=== PATIENT | female | born 1970 | race Caucasian/White ===

== ENCOUNTER 2017-09-06 16:45 | Emergency (ER) | payer BC ==
[2017-09-06 16:56] VITALS: BP 135/97
--- NOTE | 2017-09-06 17:12 | EDM.PDOC ---
ED HPI GENERAL MEDICAL PROBLEM - General Chief Complaint: Upper Extremity Injury/Pain Stated Complaint: LEFT HAND MAYBE BROKEN Time Seen by Provider: 09/06/17 17:03 Source of Information: Reports: Patient History Limitations: Reports: No Limitations - History of Present Illness INITIAL COMMENTS - FREE TEXT/NARRATIVE: Patient's a 46-year-old female who presents to the ED complaining of left hand pain. Patient states while walking her 3 dogs she tripped and fell landing on the affected hand. This happened approximately 1 hour and a half ago. She has ecchymosis and swelling to the left hand, fifth finger, and thumb. No decreased range of motion of the wrist noted. No scaphoid tenderness. No pain to the forearm, elbow, upper arm, shoulder, clavicle. She did not hit her head nor injure her neck. She offers no additional complaints. Left Hand Pain Score (Numeric/FACES): 7 - Related Data Allergies Allergy/AdvReac Type Severity Reaction Status Date / Time No Known Allergies Allergy Verified 09/06/17 16:53 Past Medical History - Past Health History Medical/Surgical History: Denies Medical/Surgical History Cardiovascular History: Reports: Other (See Below) Other Cardiovascular History: failed stress stest Musculoskeletal History: Reports: Other (See Below) Other Musculoskeletal History: left heel spur removed - Past Surgical History GI Surgical History: Reports: Appendectomy, Cholecystectomy Female Surgical History: Reports: Tubal Ligation, Other (See Below) Musculoskeletal Surgical History: Reports: Other (See Below) Social & Family History - Tobacco Use Smoking Status *Q: Current Every Day Smoker Years of Tobacco use: 15 Packs/Tins Daily: 0.2 - Alcohol Use Days Per Week of Alcohol Use: 3 Number of Drinks Per Day: 2 Total Drinks Per Week: 6 - Recreational Drug Use Recreational Drug Use: No - Living Situation & Occupation Living situation: Reports: , with Spouse Occupation: Employed Review of Systems - Review of Systems Review Of Systems: ROS reveals no pertinent complaints other than HPI. ED EXAM, GENERAL - Physical Exam Exam: See Below Exam Limited By: No Limitations General Appearance: Alert, WD/WN, No Apparent Distress Ears: Hearing Grossly Normal Nose: Normal Inspection Throat/Mouth: Normal Voice, No Airway Compromise Head: Atraumatic, Normocephalic Neck: Normal Inspection, Supple, Non-Tender, Full Range of Motion Respiratory/Chest: No Respiratory Distress, Lungs Clear, Normal Breath Sounds, No Accessory Muscle Use Cardiovascular: Normal Peripheral Pulses, Regular Rate, Rhythm Peripheral Pulses: 4+: Radial (L) Extremities: Other (Left hand: Swelling and ecchymosis noted along the fifth metacarpal and MCP. Pain with palpation of the left thumb along the IP joint. No pain with palpation of the distal radius and ulna. No scaphoid tenderness. No decreased range of motion noted to the wrist. No pain with palpation of the forearm, elbow, upper arm, shoulder, clavicle.) Neurological: Alert, Oriented, CN II-XII Intact, Normal Cognition, No Motor/ Sensory Deficits Psychiatric: Normal Affect, Normal Mood Skin Exam: Warm, Dry ED TRAUMA EXTREMITY PROCEDURES - Splinting Left Splint Site: hand Pre-Procedure NV Status: Normal Post-Procedure NV Status: Normal Splint Material: Other (Victor Hugo wrap) Splint Design: Other (To the hand) Applied & Form Fitted By: Provider Provider Post-Splint Application NV Check: NV Status Normal, Good Position Complications: No Course - Vital Signs Last Recorded V/S: Last Vital Signs Temp 97.0 F 09/06/17 16:53 Pulse 74 09/06/17 16:53 Resp BP 135/97 H 09/06/17 16:53 Pulse Ox 98 09/06/17 16:53 - Orders/Labs/Meds Orders: Active Orders 24 hr Category Date Time Status Hand Comp Min 3V Lt [CR] Stat Exams 09/06/17 17:06 Taken - Re-Assessments/Exams Free Text/Narrative Re-Assessment/Exam: Ordered x-ray of the left hand. X-ray of the left hand reviewed with Dr. Raymundo. No acute bony abnormalities noted. Victor Hugo wrap applied. We'll discharge patient home with instructions as documented. Departure - Departure Time of Disposition: 17:47 Disposition: Home, Self-Care 01 Condition: Good Clinical Impression: Contusion of left hand, initial encounter - Discharge Information Instructions: Hand Contusion Referrals: PCP,None [Primary Care Provider] - Forms: ED Department Discharge Additional Instructions: Apply ice to the affected hand 4 times a day, 30 minutes in duration, do not apply ice directly on the skin. Take Tylenol and ibuprofen in alternating fashion. Refrain from any activities that cause worsening pain. If the pain does not significantly improve over the next 7-10 days please follow up with orthopedic surgeon for reevaluation. Return to the ED if you develop any new or worsening symptoms. - My Orders Last 24 Hours: My Active Orders 09/06/17 17:06 Hand Comp Min 3V Lt [CR] Stat - Assessment/Plan Last 24 Hours: My Active Orders 09/06/17 17:06 Hand Comp Min 3V Lt [CR] Stat
--- NOTE | 2017-09-07 06:46 | CR ---
Left hand: Three views of the left hand were obtained. Comparison: No previous x-ray. Mild degenerative change noted at the CMC joint of the thumb. No discrete fracture or other abnormality is seen. Impression: 1. Degenerative change as noted above. Nothing acute is identified. Diagnostic code #2
== END 2017-09-06 17:55 | disposition home or self-care (01) ==
LOC: JD.ED 16:45
DX: S60.222A Contusion of left hand, initial encounter (principal); F17.210 Nicotine dependence, cigarettes, uncomplicated; W01.0XXA Fall on same level from slipping, tripping and stumbling without subsequent striking against object, initial encounter; Y93.K1 Activity, walking an animal
CPT/HCPCS: 29125; 73130-26-LT; 73130-LT; 99282-25; 99283

== ENCOUNTER 2017-09-14 19:28 | Emergency (ER) | payer BC ==
[2017-09-14 19:41] VITALS: BP 144/86
[2017-09-14] MEDS ORDERED: Doxycycline 100 MG Cap PO ONE (20:09)
[2017-09-14] MEDS ORDERED: guaiFENesin 600 MG Tab.ER PO ONE (20:09)
[2017-09-14] MEDS ORDERED: Benzonatate 100 MG Cap PO ONE (20:09)
--- NOTE | 2017-09-14 20:15 | EDM.PDOC ---
ED HPI GENERAL MEDICAL PROBLEM - General Chief Complaint: Respiratory Problem Stated Complaint: EAR INFECTION AND CHEST DISCOMFORT Time Seen by Provider: 09/14/17 19:59 Source of Information: Reports: Patient History Limitations: Reports: No Limitations - History of Present Illness INITIAL COMMENTS - FREE TEXT/NARRATIVE: Patient developed sinus congestion, runny nose, cough, postnasal drip, and bilateral ear pain this past . Symptoms have progressively gotten worse since. Unable to sleep at night secondary to the cough. Cough has been productive with clear mucus. States she has a lot of sinus pressure bilaterally in notable anterior neck discomfort. She denies any sore throat. Developed bilateral ear pain today with questionable drainage from the left ear. 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 States she has mild chest discomfort with coughing. She denies sob, abdominal pain, body aches, fevers, and or any other complaints. Chest Pain Score (Numeric/FACES): 7 - Related Data Allergies Allergy/AdvReac Type Severity Reaction Status Date / Time No Known Allergies Allergy Verified 09/14/17 19:41 Home Meds: Home Meds Benzonatate [Tessalon Perle] 100 mg PO TID PRN #21 capsule 09/14/17 [Rx] Doxycycline [Vibramycin] 100 mg PO BID #20 cap 09/14/17 [Rx] Past Medical History - Past Health History Medical/Surgical History: Denies Medical/Surgical History Cardiovascular History: Reports: Other (See Below) Other Cardiovascular History: failed stress stest Musculoskeletal History: Reports: Other (See Below) Other Musculoskeletal History: left heel spur removed - Past Surgical History GI Surgical History: Reports: Appendectomy, Cholecystectomy Female Surgical History: Reports: Tubal Ligation, Other (See Below) Musculoskeletal Surgical History: Reports: Other (See Below) Social & Family History - Family History Family Medical History: Noncontributory - Tobacco Use Smoking Status *Q: Current Every Day Smoker Years of Tobacco use: 20 Packs/Tins Daily: 0.5 - Caffeine Use Caffeine Use: Reports: None - Alcohol Use Days Per Week of Alcohol Use: 3 Number of Drinks Per Day: 2 Total Drinks Per Week: 6 - Recreational Drug Use Recreational Drug Use: No - Living Situation & Occupation Living situation: Reports: , with Spouse Occupation: Employed ED ROS GENERAL - Review of Systems Review Of Systems: See Below Constitutional: Denies: Fever, Decreased Appetite HEENT: Reports: Ear Pain (bilateral), Rhinitis, Sinus Problem. Denies: Throat Pain Respiratory: Reports: Pleuritic Chest Pain (with coughing), Cough, Sputum. Denies: Shortness of Breath, Wheezing, Hemoptysis Cardiovascular: Reports: No Symptoms GI/Abdominal: Reports: No Symptoms Musculoskeletal: Reports: No Symptoms Skin: Reports: No Symptoms Neurological: Reports: No Symptoms ED EXAM, GENERAL - Physical Exam Exam: See Below Exam Limited By: No Limitations General Appearance: Alert, WD/WN, No Apparent Distress Eye Exam: Bilateral Eye: EOMI, PERRL Ears: Normal External Exam, Normal Canal, Hearing Grossly Normal, Normal TMs Nose: Normal Inspection, Nasal Swelling, Nasal Drainage, Clear Rhinorrhea. No: Nasal Tenderness Throat/Mouth: Normal Inspection, Normal Oropharynx, Normal Voice, No Airway Compromise Head: Atraumatic, Normocephalic Neck: Normal Inspection, Supple, Full Range of Motion, Lymphadenopathy (L). No : Lymphadenopathy (R) Respiratory/Chest: No Respiratory Distress, Lungs Clear, Normal Breath Sounds, No Accessory Muscle Use, Chest Non-Tender Cardiovascular: Normal Peripheral Pulses, Regular Rate, Rhythm Peripheral Pulses: 4+: Radial (R) Neurological: Alert, Oriented, CN II-XII Intact, Normal Cognition, No Motor/ Sensory Deficits Psychiatric: Normal Affect, Normal Mood Skin Exam: Warm, Dry, Intact, Normal Color, No Rash Course - Vital Signs Last Recorded V/S: Last Vital Signs Temp 96.9 F 09/14/17 19:38 Pulse 107 H 09/14/17 19:38 Resp 16 09/14/17 19:38 BP 144/86 H 09/14/17 19:38 Pulse Ox 95 09/14/17 19:38 - Orders/Labs/Meds Meds: Medications Discontinued Medications Generic Name Dose Route Start Last Admin Trade Name Freq PRN Reason Stop Dose Admin Benzonatate 200 mg 09/14/17 20:09 09/14/17 20:20 Tessalon Perles PO 09/14/17 20:10 200 mg ONETIME ONE Administration Doxycycline Hyclate 100 mg 09/14/17 20:09 09/14/17 20:20 Vibramycin PO 09/14/17 20:10 100 mg ONETIME ONE Administration Guaifenesin 1,200 mg 09/14/17 20:09 09/14/17 20:20 Mucinex PO 09/14/17 20:10 1,200 mg ONETIME ONE Administration - Re-Assessments/Exams Free Text/Narrative Re-Assessment/Exam: No testing required patient has sinusitis with postnasal drip with cough. Ordered doxycycline 100 mg by mouth, Tessalon pearls 20 mg by mouth, and also Mucinex 1200 mg by mouth. We'll discharge patient home with instructions as documented. The patient remained hemodynamically stable while under my care in the E.D. I reviewed the patients care today and discussed the concerning symptoms for which to return to the E.D. with the patient/family. The patient/family verbalized understanding. All questions were answered. Departure - Departure Time of Disposition: 20:12 Disposition: Home, Self-Care 01 Condition: Good Clinical Impression: Productive cough Sinusitis Qualifiers: Sinusitis location: frontal Chronicity: acute Recurrence: non-recurrent Qualified Code(s): J01.10 - Acute frontal sinusitis, unspecified - Discharge Information Prescriptions: Benzonatate [Tessalon Perle] 100 mg PO TID PRN #21 capsule PRN Reason: Cough Doxycycline [Vibramycin] 100 mg PO BID #20 cap Instructions: Steps to Quit Smoking, [id number], Cough, Adult, [id number], Sinusitis, Adult Referrals: PCP,None [Primary Care Provider] - Forms: ED Department Discharge Additional Instructions: Take Tessalon Perles 100 mg 3 times a day for cough as needed. Take the full course of doxycycline 100 mg twice a day for 10 days. Take Mucinex 600 mg twice a day for the next 10 days. Push the fluids. Ensure adequate rest. Take Tylenol and ibuprofen and alternate fashion for discomfort. Follow-up with PCP at the conclusion of therapy if symptoms have not drastically improved. Return to the ED if you develop any new or worsening symptoms.
== END 2017-09-14 20:25 | disposition home or self-care (01) ==
LOC: JD.ED 19:28
DX: J01.10 Acute frontal sinusitis, unspecified (principal); F17.210 Nicotine dependence, cigarettes, uncomplicated
CPT/HCPCS: 99283; A9270

== ENCOUNTER 2017-10-24 17:10 | Emergency (ER) | payer BC ==
[2017-10-24 17:29] VITALS: BP 120/80
--- NOTE | 2017-10-24 19:16 | EDM.PDOC ---
ED HPI GENERAL MEDICAL PROBLEM - General Chief Complaint: Respiratory Problem Stated Complaint: SORE THROAT X 1 MONTH Time Seen by Provider: 10/24/17 19:05 Source of Information: Reports: Patient History Limitations: Reports: No Limitations - History of Present Illness INITIAL COMMENTS - FREE TEXT/NARRATIVE: Patient is a 46 y/o female who presents to the E.D. complaining of a sore throat , post nasal gtt, sinus congestion for the past month. States she was evaluated one month ago and was placed on a antibiotic no significant results. States she has history of allergies but refuses to take any OTC antihistamines and or intranasal steroids with concerns medications will not continue to work. She has been evaluated by ENT and a Allergists. She continues to refuse following recommendations. She is requesting an antibiotic. She notes increased fatigue as of recent. States as of recent exposed to increased dust worsening symptoms. Appetite has been low. She denies any sick exposures. She denies cough, cp, sob, fever, abdominal pain, dysuria, rash, or any additional complaints. Throat Pain Score (Numeric/FACES): 7 - Related Data Allergies Allergy/AdvReac Type Severity Reaction Status Date / Time No Known Allergies Allergy Verified 09/14/17 19:41 Home Meds: Home Meds . [No Known Home Meds] 10/24/17 [History] Past Medical History - Past Health History Medical/Surgical History: Denies Medical/Surgical History Cardiovascular History: Reports: Other (See Below) Other Cardiovascular History: failed stress stest Musculoskeletal History: Reports: Other (See Below) Other Musculoskeletal History: left heel spur removed - Past Surgical History GI Surgical History: Reports: Appendectomy, Cholecystectomy Female Surgical History: Reports: Tubal Ligation, Other (See Below) Musculoskeletal Surgical History: Reports: Other (See Below) Social & Family History - Family History Family Medical History: Noncontributory - Tobacco Use Smoking Status *Q: Current Every Day Smoker Years of Tobacco use: 15 Packs/Tins Daily: 0.4 - Caffeine Use Caffeine Use: Reports: None - Recreational Drug Use Recreational Drug Use: No - Living Situation & Occupation Living situation: Reports: , with Spouse Occupation: Employed ED ROS GENERAL - Review of Systems Review Of Systems: ROS reveals no pertinent complaints other than HPI. ED EXAM, GENERAL - Physical Exam Exam: See Below Exam Limited By: No Limitations General Appearance: Alert, WD/WN, No Apparent Distress Eye Exam: Bilateral Eye: Normal Inspection, PERRL Ears: Normal External Exam, Normal Canal, Hearing Grossly Normal, Normal TMs Nose: Normal Inspection, Nasal Swelling, Nasal Drainage, Clear Rhinorrhea. No: Nasal Tenderness Throat/Mouth: Normal Inspection, Normal Oropharynx, Normal Voice, No Airway Compromise, Other (post nasal drip present. faint redness to the throat. no exudates. uvula deviation. ) Neck: Normal Inspection, Supple, Non-Tender, Full Range of Motion. No: Lymphadenopathy (L), Lymphadenopathy (R) Respiratory/Chest: No Respiratory Distress, Lungs Clear, Normal Breath Sounds, No Accessory Muscle Use, Chest Non-Tender Cardiovascular: Normal Peripheral Pulses, Regular Rate, Rhythm, No Rub Peripheral Pulses: 4+: Radial (L), Radial (R) Neurological: Alert, Oriented, CN II-XII Intact, Normal Cognition, No Motor/ Sensory Deficits Psychiatric: Normal Affect, Normal Mood Skin Exam: Warm, Dry, Intact, Normal Color, No Rash Course - Vital Signs Last Recorded V/S: Last Vital Signs Temp 96.3 F 10/24/17 17:27 Pulse 100 10/24/17 17:27 Resp 20 10/24/17 17:27 BP 120/80 10/24/17 17:27 Pulse Ox 94 L 10/24/17 17:27 - Re-Assessments/Exams Free Text/Narrative Re-Assessment/Exam: Patient has seasonal allergies. Patient refuses to take OTC medications to improve symptoms. I have provided detailed instructions for OTC meds to be used. She had no additional questions or concerns. Departure - Departure Time of Disposition: 19:13 Disposition: Home, Self-Care 01 Condition: Good Clinical Impression: Postnasal drip Pharyngitis Qualifiers: Pharyngitis/tonsillitis etiology: unspecified etiology Qualified Code(s): J02.9 - Acute pharyngitis, unspecified Allergic rhinitis Qualifiers: Allergic rhinitis trigger: unspecified Allergic rhinitis seasonality: seasonal Qualified Code(s): J30.2 - Other seasonal allergic rhinitis - Discharge Information Instructions: Pharyngitis, [id number], Allergic Rhinitis, Adult Referrals: PCP,None [Primary Care Provider] - Forms: ED Department Discharge Additional Instructions: As discussed is most likely related to allergies with chronic sinus congestion with postnasal drip contributing to sore throat. Symptoms worsened yesterday after being exposed to dust thus suggesting allergy related as well. Start taking Flonase 1 spray to each nare twice daily, Claritin 10 mg every day, nasal saline spray to each Nare as needed throughout the course today to decrease any nasal congestion. Establish care with a PCP here locally for further evaluation. See a ENT specialist in the next 1-2 weeks for reevaluation to determine if tonsillectomy is required. Suggest following up with a electronics teacher to diagnose what allergies you may have and for possible treatment.
== END 2017-10-24 19:20 | disposition home or self-care (01) ==
LOC: JD.ED 17:10
DX: J02.9 Acute pharyngitis, unspecified (principal); J30.2 Other seasonal allergic rhinitis; R09.82 Postnasal drip; F17.210 Nicotine dependence, cigarettes, uncomplicated
CPT/HCPCS: 87081; 87430; 99282; 99283

== ENCOUNTER 2019-01-26 14:13 | Emergency (ER) | payer BC ==
[2019-01-26 14:29] VITALS: BP 151/113
--- NOTE | 2019-01-26 15:02 | CT ---
Head CT Technique: Multiple axial sections through the brain were obtained. Intravenous contrast was not utilized. Comparison: Prior head CT study of 12/10/18. Findings: Ventricles along with basal cisterns and sulci over the convexities appear within normal limits for the patient's age. No abnormal parenchymal densities are seen. No evidence of intracranial hemorrhage. No midline shift or mass effect is appreciated. Bone window settings were reviewed which show the visualized paranasal sinuses to appear clear. Slight deformity is noted within the anterior right maxillary sinus possibly due to old injury. Mastoid sinuses are clear. No acute calvarial abnormality is seen. Impression: 1. Possible old fracture within the anterior right maxillary sinus. 2. Nothing acute is appreciated on noncontrast head CT exam. No change from previous study is seen. Diagnostic code #2
[2019-01-26] MEDS: Sodium Chloride 0.9% 10 ML Syringe FLUSH PRN ×2 (15:28→17:28)
[2019-01-26] MEDS ORDERED: Iopamidol 755 Mg/ML 100 ML Bottle IVPUSH ONE (17:05)
[2019-01-26] MEDS ORDERED: Sodium Chloride 0.9% 100 ML IV SCH (17:15)
--- NOTE | 2019-01-26 17:28 | EDM.PDOCBH ---
ED HPI GENERAL MEDICAL PROBLEM - General Chief Complaint: Neurological Problem Stated Complaint: STROKE X 3 WEEKS AGO NOW HAVING HEADACHE Time Seen by Provider: 01/26/19 14:27 Source of Information: Reports: Patient History Limitations: Reports: No Limitations - History of Present Illness INITIAL COMMENTS - FREE TEXT/NARRATIVE: The patient presents with right arm and leg pain with weakness and numbness. She also has a headache. She had a headache for 3 days. Her last times known well was 01/24/19 at 8am. She has slowly progressive symptoms and now she has moderate weakness to her right arm and leg. She had a stroke back in December. She has no fever, chills, cough, congestion, runny nose, chest pain, shortness of breath, abdominal pain, nausea or vomiting. Onset: Gradual Duration: Day(s): (2) Location: Reports: Head, Upper Extremity, Right, Lower Extremity, Right Quality: Reports: Ache Severity: Moderate Improves with: Reports: None Worsens with: Reports: None Associated Symptoms: Reports: Headaches. Denies: Chest Pain, Cough, Fever/ Chills, Nausea/Vomiting, Shortness of Breath Headache Pain Score (Numeric/FACES): 10 - Related Data Allergies Allergy/AdvReac Type Severity Reaction Status Date / Time No Known Allergies Allergy Verified 01/26/19 14:29 Home Meds: Home Meds . 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: Musculoskeletal History: Reports: Other (See Below) Other Musculoskeletal History: left heel spur removed Neurological History: Reports: CVA Psychiatric History: Reports: Addiction, Anxiety - Past Surgical History GI Surgical History: Reports: Appendectomy, Cholecystectomy Female Surgical History: Reports: Tubal Ligation, Other (See Below) Social & Family History - Family History Family Medical History: Noncontributory - Tobacco Use Smoking Status *Q: Current Every Day Smoker Years of Tobacco use: 30 Packs/Tins Daily: 0.5 - Caffeine Use Caffeine Use: Reports: None - Alcohol Use Days Per Week of Alcohol Use: 7 Number of Drinks Per Day: 2 Total Drinks Per Week: 14 - Recreational Drug Use Recreational Drug Use: No - Living Situation & Occupation Living situation: Reports: , with Spouse Occupation: Employed ED ROS GENERAL - Review of Systems Review Of Systems: See Below Constitutional: Reports: No Symptoms HEENT: Reports: No Symptoms Respiratory: Reports: No Symptoms Cardiovascular: Reports: No Symptoms Endocrine: Reports: No Symptoms GI/Abdominal: Reports: No Symptoms : Reports: No Symptoms Neurological: Reports: Headache, Numbness, Weakness ED EXAM, BEHAVIORAL HEALTH - Physical Exam Exam: See Below Exam Limited By: No Limitations General Appearance: Alert, No Apparent Distress Ears: Normal External Exam Nose: Normal Inspection Head: Atraumatic, Normocephalic Neck: Normal Inspection Respiratory/Chest: No Respiratory Distress, Lungs Clear, Normal Breath Sounds Cardiovascular: Regular Rate, Rhythm, No Edema, No Murmur GI/Abdominal: Soft, Non-Tender, No Organomegaly, No Mass Back Exam: Normal Inspection Extremities: Normal Inspection Neurological: Other (Moderate weakness to the right leg and arm) EKG INTERPRETATION EKG Date: 01/26/19 Time: 15:38 Rhythm: NSR Rate (Beats/Min): 92 [place]: Normal P-Wave: Present QRS: Normal ST-T: Normal QT: Normal EKG Interpretation Comments: Q waves in the anterior leads COURSE, BEHAVIORAL HEALTH COMP - Course Vital Signs: Last Vital Signs Temp 98.7 F 01/26/19 14:25 Pulse 108 H 01/26/19 14:25 Resp 23 H 01/26/19 14:25 BP 151/113 H 01/26/19 14:25 Pulse Ox 91 L 01/26/19 14:25 Orders, Labs, Meds: Active Orders 24 hr Category Date Time Status Cardiac Monitoring [RC] . DIRECTED Care 01/26/19 14:30 Active EKG Documentation Completion [RC] STAT Care 01/26/19 14:30 Active Peripheral IV Care [RC] . DIRECTED Care 01/26/19 14:31 Active CTA Head W & W/O Contrast [Ang Head] [CT] Stat Exams 01/26/19 16:43 Ordered Chest 1V Frontal [CR] Stat Exams 01/26/19 14:31 Taken Sodium Chloride 0.9% [Normal Saline] 100 ml Med 01/26/19 17:15 Active IV ASDIRECTED Sodium Chloride 0.9% [Saline Flush] Med 01/26/19 14:30 Active 10 ml FLUSH ASDIRECTED PRN Peripheral IV Insertion Adult [OM.PC] Stat Oth 01/26/19 14:30 Ordered Medication Orders Sodium Chloride (Normal Saline) 100 mls @ 80 mls/hr IV ASDIRECTED KYLE Sodium Chloride (Saline Flush) 10 ml FLUSH ASDIRECTED PRN PRN Reason: Keep Vein Open Last Admin: 01/26/19 15:28 Dose: 10 ml Laboratory Tests 01/26/19 01/26/19 01/26/19 Range/Units 14:30 14:31 14:31 WBC 6.05 (3.98-10.04) K/mm3 RBC 4.02 (3.98-5.22) M/mm3 Hgb 14.0 (11.2-15.7) gm/L Hct 39.7 (34.1-44.9) % MCV 98.8 H (79.4-94.8) fl MCH 34.8 H (25.6-32.2) pg MCHC 35.3 (32.2-35.5) g/dl RDW Std Deviation 46.0 (36.4-46.3) fL Plt Count 210 (182-369) K/mm3 MPV 8.9 L (9.4-12.3) fl Neut % (Auto) 39.0 (34.0-71.1) % Lymph % (Auto) 50.4 (19.3-51.7) % [place] % (Auto) 8.3 (4.7-12.5) % Eos % (Auto) 1.8 (0.7-5.8) Baso % (Auto) 0.2 (0.1-1.2) % Neut # (Auto) 2.36 (1.56-6.13) K/mm3 Lymph # (Auto) 3.05 (1.18-3.74) K/mm3 [place] # (Auto) 0.50 H (0.24-0.36) K/mm3 Eos # (Auto) 0.11 (0.04-0.36) K/mm3 Baso # (Auto) 0.01 (0.01-0.08) K/mm3 PT 10.3 (9.7-12.0) SECONDS INR 0.94 APTT 26 (22-31) SECONDS Sodium (136-145) mEq/L Potassium (3.5-5.1) mEq/L Chloride (98-107) mEq/L Carbon Dioxide (21-32) mEq/L Anion Gap (5-15) BUN (7-18) mg/dL Creatinine (0.55-1.02) mg/dL Est Cr Clr Drug Dosing mL/min Estimated GFR (MDRD) (>60) mL/min BUN/Creatinine Ratio (14-18) Glucose (74-106) mg/dL POC Glucose 93 (70-105) mg/dL Calcium (8.5-10.1) mg/dL Total Bilirubin (0.2-1.0) mg/dL AST (15-37) U/L ALT (14-59) U/L Alkaline Phosphatase (46-116) U/L Troponin I (0.00-0.056) ng/mL Total Protein (6.4-8.2) g/dl Albumin (3.4-5.0) g/dl Globulin gm/dL Albumin/Globulin Ratio (1-2) 01/26/19 Range/Units 14:31 WBC (3.98-10.04) K/mm3 RBC (3.98-5.22) M/mm3 Hgb (11.2-15.7) gm/L Hct (34.1-44.9) % MCV (79.4-94.8) fl MCH (25.6-32.2) pg MCHC (32.2-35.5) g/dl RDW Std Deviation (36.4-46.3) fL Plt Count (182-369) K/mm3 MPV (9.4-12.3) fl Neut % (Auto) (34.0-71.1) % Lymph % (Auto) (19.3-51.7) % [place] % (Auto) (4.7-12.5) % Eos % (Auto) (0.7-5.8) Baso % (Auto) (0.1-1.2) % Neut # (Auto) (1.56-6.13) K/mm3 Lymph # (Auto) (1.18-3.74) K/mm3 [place] # (Auto) (0.24-0.36) K/mm3 Eos # (Auto) (0.04-0.36) K/mm3 Baso # (Auto) (0.01-0.08) K/mm3 PT (9.7-12.0) SECONDS INR APTT (22-31) SECONDS Sodium 139 (136-145) mEq/L Potassium 3.6 (3.5-5.1) mEq/L Chloride 100 (98-107) mEq/L Carbon Dioxide 23 (21-32) mEq/L Anion Gap 19.6 H (5-15) BUN 9 (7-18) mg/dL Creatinine 0.5 L (0.55-1.02) mg/dL Est Cr Clr Drug Dosing 135.79 mL/min Estimated GFR (MDRD) > 60 (>60) mL/min BUN/Creatinine Ratio 18.0 (14-18) Glucose 107 H (74-106) mg/dL POC Glucose (70-105) mg/dL Calcium 8.9 (8.5-10.1) mg/dL Total Bilirubin 0.5 (0.2-1.0) mg/dL AST 35 (15-37) U/L ALT 14 (14-59) U/L Alkaline Phosphatase 53 (46-116) U/L Troponin I < 0.017 (0.00-0.056) ng/mL Total Protein 8.0 (6.4-8.2) g/dl Albumin 4.0 (3.4-5.0) g/dl Globulin 4.0 gm/dL Albumin/Globulin Ratio 1.0 (1-2) Medications Generic Name Dose Route Start Last Admin Trade Name Freq PRN Reason Stop Dose Admin Sodium Chloride 100 mls @ 80 mls/hr 01/26/19 17:15 Normal Saline IV ASDIRECTED KYLE Sodium Chloride 10 ml 01/26/19 14:30 01/26/19 15:28 Saline Flush FLUSH 10 ml ASDIRECTED PRN Administration Keep Vein Open Discontinued Medications Generic Name Dose Route Start Last Admin Trade Name Freq PRN Reason Stop Dose Admin Iopamidol 100 ml 01/26/19 17:05 Isovue-370 (76%) IVPUSH 01/26/19 17:06 ONETIME ONE Re-Assessment/Re-Exam: A stroke alert was called and the patient has moderate right sided weakness that is new even from her prior stoke where she was near normal. Her last time know well was 2 days ago so she is not a candidate for thrombolytics. Her EKG shows no acute changes. The CT shows possible old fracture within the anterior right maxillary sinus. Nothing acute is appreciated on noncontrast head CT exam. No change from previous study is seen. Her labs look good. I called [facility] in [place] and talked with Dr Crawford the neurologist professional caster and the [facility] practice service and they accepted the patient. They did want a CT angio done before she leaves. Her refuses for her to go by air or ground. He will take her himself. I notified him of the risks and benefits of EMS transfer. He is aware. Departure - Departure Time of Disposition: 17:35 Disposition: DC/Tfer to Acute Hospital 02 Condition: Poor Clinical Impression: CVA (cerebral vascular accident) Qualifiers: CVA mechanism: unspecified Qualified Code(s): I63.9 - Cerebral infarction, unspecified - Discharge Information Referrals: PCP,None [Primary Care Provider] - - My Orders Last 24 Hours: My Active Orders 01/26/19 14:30 Cardiac Monitoring [RC] . DIRECTED EKG Documentation Completion [RC] STAT Sodium Chloride 0.9% [Saline Flush] 10 ml FLUSH ASDIRECTED PRN Peripheral IV Insertion Adult [OM.PC] Stat 01/26/19 14:31 Peripheral IV Care [RC] . DIRECTED Chest 1V Frontal [CR] Stat 01/26/19 16:43 CTA Head W & W/O Contrast [Ang Head] [CT] Stat 01/26/19 17:15 Sodium Chloride 0.9% [Normal Saline] 100 ml IV ASDIRECTED - Assessment/Plan Last 24 Hours: My Active Orders 01/26/19 14:30 Cardiac Monitoring [RC] . DIRECTED EKG Documentation Completion [RC] STAT Sodium Chloride 0.9% [Saline Flush] 10 ml FLUSH ASDIRECTED PRN Peripheral IV Insertion Adult [OM.PC] Stat 01/26/19 14:31 Peripheral IV Care [RC] . DIRECTED Chest 1V Frontal [CR] Stat 01/26/19 16:43 CTA Head W & W/O Contrast [Ang Head] [CT] Stat 01/26/19 17:15 Sodium Chloride 0.9% [Normal Saline] 100 ml IV ASDIRECTED
--- NOTE | 2019-01-27 08:16 | CT ---
CT angiogram of brain Technique: Multiple axial sections through the brain were obtained. Intravenous contrast was utilized. Study performed as a CT angiogram protocol. Findings: Anterior and middle cerebral arteries appear patent. No discrete stenosis or occlusion is seen. Distal vertebral arteries are patent into the basilar artery. Posterior cerebral arteries are also patent on both sides without focal stenosis or occlusion. No discrete aneurysm is seen although MRI angiogram is more sensitive for aneurysm evaluation than CT study. Impression: 1. No abnormality is seen on CT angiogram study of the brain. Diagnostic code #1 I agree with preliminary report from [facility], finalized on 01/26/19, 7:14 PM Central Time
--- NOTE | 2019-01-27 08:17 | CR ---
Chest: Portable view of the chest was obtained. Comparison: Prior chest x-ray of 12/10/18. Heart size and mediastinum are within normal limits for portable technique. No acute parenchymal change is seen within either lung. Scoliosis is noted within the spine. Impression: 1. Finding which are believed to be incidental. Nothing acute is appreciated on portable chest x-ray. Diagnostic code #2
== END 2019-01-26 17:55 ==
LOC: JD.ED 14:13
DX: I63.9 Cerebral infarction, unspecified (principal); F17.210 Nicotine dependence, cigarettes, uncomplicated
CPT/HCPCS: 36415; 70450; 70496; 71045; 80053; 82962; 84484; 85025; 85610; 85730; 93005; 99285; J7030; Q9967

== ENCOUNTER 2019-10-11 15:27 | Emergency (ER) | payer SELFPAY ==
[2019-10-11 15:47] VITALS: BP 129/95; PULSE 105
[2019-10-11] MEDS ORDERED: Sodium Chloride 0.9% 10 ML Syringe FLUSH PRN (16:10)
[2019-10-11] MEDS ORDERED: Ketorolac 30 MG/ML SDV IVPUSH ONE (16:19)
--- NOTE | 2019-10-11 16:32 | EDM.PDOC ---
ED HPI GENERAL MEDICAL PROBLEM - General Chief Complaint: General Stated Complaint: SWELLING IN FACE PREVIOUS STROKE PT Time Seen by Provider: 10/11/19 15:52 Source of Information: Reports: Patient History Limitations: Reports: No Limitations - History of Present Illness INITIAL COMMENTS - FREE TEXT/NARRATIVE: Jazlyn Merino is a 48 y/o female emergency room chief complaint right facial swelling and pain. Reports the swelling started 6 days ago. She complains of pain behind her right orbital region. She denies any visual changes. She states that 5 days ago she started taking clindamycin 300 mg 4 times a day. She went to her dentist this morning who evaluated her and indicated she had no dental infection. She denies any fever, chills, shortness of breath difficulty swallowing, chest pain or headache. Does have a history of previous stroke resulting in right-sided weakness. Patient states that this morning she noticed it was harder for her to move her right leg and right arm. She reports having some pain in these extremities. Onset Date: 10/05/19 Onset Time: 12:00 Duration: Getting Worse Location: Reports: Face Quality: Reports: Ache Severity: Mild Improves with: Reports: None Worsens with: Reports: None Associated Symptoms: Reports: Weakness. Denies: Chest Pain, Fever/Chills, Nausea/Vomiting, Shortness of Breath Face/Facial Pain Score (Numeric/FACES): 6 - Related Data Allergies Allergy/AdvReac Type Severity Reaction Status Date / Time No Known Allergies Allergy Verified 10/11/19 15:47 Home Meds: Home Meds Cefdinir [Omnicef] 300 mg PO BID 10 Days #20 cap 10/11/19 [Rx] Melatonin 2.5 mg PO BEDTIME 10/11/19 [History] metroNIDAZOLE [Flagyl] 500 mg PO Q12H 7 Days #14 tab 10/11/19 [Rx] traMADol [Ultram] 50 mg PO Q6H PRN 4 Days #12 tab 10/11/19 [Rx] Past Medical History - Past Health History Medical/Surgical History: Denies Medical/Surgical History HEENT History: Reports: Impaired Vision, Otitis Media Other HEENT History: wears eyeglasses Cardiovascular History: Reports: Other (See Below) 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: Musculoskeletal History: Reports: Other (See Below) Other Musculoskeletal History: left heel spur removed Neurological History: Reports: CVA Psychiatric History: Reports: Addiction, Anxiety - Past Surgical History GI Surgical History: Reports: Appendectomy, Cholecystectomy Female Surgical History: Reports: Tubal Ligation, Other (See Below) Social & Family History - Family History Family Medical History: Noncontributory - Tobacco Use Smoking Status *Q: Current Every Day Smoker Years of Tobacco use: 20 Packs/Tins Daily: 0.2 - Caffeine Use Caffeine Use: Reports: None - Recreational Drug Use Recreational Drug Use: No - Living Situation & Occupation Living situation: Reports: , with Spouse Occupation: Employed ED ROS GENERAL - Review of Systems Review Of Systems: See Below Constitutional: Reports: Chills. Denies: Fever HEENT: Reports: Eye Pain (right) Respiratory: Denies: Shortness of Breath Cardiovascular: Denies: Chest Pain Endocrine: Reports: No Symptoms GI/Abdominal: Reports: No Symptoms Skin: Reports: No Symptoms Neurological: Reports: Weakness (right sided weakness (from previous stroke).). Denies: Dizziness, Change in Speech Psychiatric: Reports: Anxiety Hematologic/Lymphatic: Reports: No Symptoms Immunologic: Reports: No Symptoms ED EXAM, GENERAL - Physical Exam Exam: See Below Exam Limited By: No Limitations General Appearance: Alert, WD/WN Eye Exam: Bilateral Eye: EOMI, PERRL Ears: Normal External Exam, Normal Canal, Hearing Grossly Normal, Normal TMs Nose: Normal Inspection, Normal Mucosa Throat/Mouth: Normal Inspection, Normal Lips, Normal Teeth, Normal Gums, Normal Oropharynx, Normal Voice, No Airway Compromise Head: Atraumatic, Normocephalic Neck: Normal Inspection, Supple, Non-Tender, Full Range of Motion Respiratory/Chest: No Respiratory Distress, Lungs Clear, Normal Breath Sounds, No Accessory Muscle Use, Chest Non-Tender Cardiovascular: Normal Peripheral Pulses, Regular Rate, Rhythm, No Edema, No Gallop, No JVD, No Murmur, No Rub Back Exam: Normal Inspection, Full Range of Motion Extremities: Normal Inspection, Normal Range of Motion, Non-Tender, No Pedal Edema, Normal Capillary Refill Neurological: Alert, Oriented, CN II-XII Intact, Normal Cognition, Other (right sided weakness (this is from previous stroke).) Psychiatric: Normal Affect, Normal Mood Skin Exam: Warm, Dry, Intact, Normal Color, No Rash Lymphatic: No Adenopathy Course - Vital Signs Text/Narrative:: Jazlyn Merino is a 48 y/o female who presents to the ER with cc right facial pain and swelling for the past 6 days. She reports taking Clindamycin 300 mg qid for the past 5 days. She went to her dentist today who evaluated her and found no acute infection. She denies fever, states she has had the chills but this not unusual. She has had a previous stroke in the past resulting in right sided weakness. She reports increased pain and weakness on right side that started today. She denies any incontinence of bowel or bladder. She denies any headache or change in vision. I will order a facial CT, labs and Toradol Last Recorded V/S: Last Vital Signs Temp 97.6 F 10/11/19 15:42 Pulse 105 H 10/11/19 15:42 Resp 17 10/11/19 15:42 BP 129/95 H 10/11/19 15:42 Pulse Ox 96 10/11/19 15:42 - Orders/Labs/Meds Orders: Active Orders 24 hr Category Date Time Status Sodium Chloride 0.9% [Saline Flush] Med 10/11/19 16:10 Active 10 ml FLUSH ASDIRECTED PRN Saline Lock Insert [OM.PC] Routine Oth 10/11/19 16:10 Ordered Medication Orders Sodium Chloride (Saline Flush) 10 ml FLUSH ASDIRECTED PRN PRN Reason: Keep Vein Open Last Admin: 10/11/19 16:51 Dose: 10 ml Labs: Laboratory Tests 10/11/19 10/11/19 10/11/19 Range/Units 16:23 16:23 16:23 WBC 6.75 (3.98-10.04) K/mm3 RBC 4.17 (3.98-5.22) M/mm3 Hgb 13.8 (11.2-15.7) gm/dl Hct 39.7 (34.1-44.9) % MCV 95.2 H D (79.4-94.8) fl MCH 33.1 H (25.6-32.2) pg MCHC 34.8 (32.2-35.5) g/dl RDW Std Deviation 41.7 (36.4-46.3) fL Plt Count 270 (182-369) K/mm3 MPV 9.2 L (9.4-12.3) fl Neut % (Auto) 54.7 (34.0-71.1) % Lymph % (Auto) 36.0 (19.3-51.7) % [place] % (Auto) 6.4 (4.7-12.5) % Eos % (Auto) 2.5 (0.7-5.8) Baso % (Auto) 0.1 (0.1-1.2) % Neut # (Auto) 3.69 (1.56-6.13) K/mm3 Lymph # (Auto) 2.43 (1.18-3.74) K/mm3 [place] # (Auto) 0.43 H (0.24-0.36) K/mm3 Eos # (Auto) 0.17 (0.04-0.36) K/mm3 Baso # (Auto) 0.01 (0.01-0.08) K/mm3 Sodium 137 (136-145) mEq/L Potassium 3.1 L (3.5-5.1) mEq/L Chloride 101 (98-107) mEq/L Carbon Dioxide 22 (21-32) mEq/L Anion Gap 17.1 H (5-15) BUN 7 (7-18) mg/dL Creatinine 0.5 L (0.55-1.02) mg/dL Est Cr Clr Drug Dosing 135.79 mL/min Estimated GFR (MDRD) > 60 (>60) mL/min BUN/Creatinine Ratio 14.0 (14-18) Glucose 96 (74-106) mg/dL Calcium 9.0 (8.5-10.1) mg/dL Total Bilirubin 0.5 (0.2-1.0) mg/dL AST 18 (15-37) U/L ALT 13 L (14-59) U/L Alkaline Phosphatase 43 L (46-116) U/L C-Reactive Protein <0.2 (<1.0) mg/dL Total Protein 7.3 (6.4-8.2) g/dl Albumin 3.8 (3.4-5.0) g/dl Globulin 3.5 gm/dL Albumin/Globulin Ratio 1.1 (1-2) Meds: Medications Generic Name Dose Route Start Last Admin Trade Name Freq PRN Reason Stop Dose Admin Sodium Chloride 10 ml 10/11/19 16:10 10/11/19 16:51 Saline Flush FLUSH 10 ml ASDIRECTED PRN Administration Keep Vein Open Discontinued Medications Generic Name Dose Route Start Last Admin Trade Name Nola PRN Reason Stop Dose Admin Dexamethasone 10 mg 10/11/19 17:19 Dexamethasone IVPUSH 10/11/19 17:20 ONETIME ONE Ketorolac Tromethamine 30 mg 10/11/19 16:19 10/11/19 16:51 Toradol IVPUSH 10/11/19 16:20 30 mg ONETIME ONE Administration - Re-Assessments/Exams Free Text/Narrative Re-Assessment/Exam: 10/11/19 17:34 WBC 6.75, RBC 4.17, platelet 270, sodium 137, potassium 3.1, chloride 101, CO2 22, BUN 7, creatinine 0.5, and CRP less than 0.2. Facial CT was revealed a mildly depressed and mildly commuted inferior orbital floor blowout fracture on the right side. I will medicate with a potassium supplement. She Continues to deny any trauma. I will discharge home with Omnicef and Flagyl for outpatient antibiotic therapy. Instructed patient take this medication as prescribed. I will discharge home with tramadol for pain. Instructed patient not to drink, drive or operate machinery while taking his medication. Instructed patient to return to emergency room for new or acute worsening symptoms. Instructed patient if she develops double vision to return to the emergency room immediately. Patient verbalized understanding and is comfortable plan for discharge. Patient stable at time of discharge. Departure - Departure Time of Disposition: 17:38 Disposition: Home, Self-Care 01 Condition: Good Clinical Impression: Hypokalemia Orbit fracture, right Qualifiers: Encounter type: initial encounter Fracture type: closed Qualified Code(s): S02.85XA - Fracture of orbit, unspecified, initial encounter for closed fracture - Discharge Information Prescriptions: Cefdinir [Omnicef] 300 mg PO BID 10 Days #20 cap metroNIDAZOLE [Flagyl] 500 mg PO Q12H 7 Days #14 tab traMADol [Ultram] 50 mg PO Q6H PRN 4 Days #12 tab PRN Reason: Pain Instructions: Orbital Floor Fracture Without Entrapment, Hypokalemia Referrals: PCP,None [Primary Care Provider] - Forms: ED Department Discharge Additional Instructions: You were seen and evaluated today for right facial pain. Your CT scan reveals a right inferior orbital floor fracture. You prescribed Omnicef and Flagyl for outpatient antibiotic therapy. Take this medication as directed. Stop taking the clindamycin. Apply ice to the area number than 20 minutes at a time. Prescribed tramadol for pain. Do not drink drive or operate machinery when take this medication. If you were to develop double vision you should turn to the emergency room department. Return to the emergency room for any new acute worsening symptoms. Calcium level was low I recommend you eat foods high in potassium such as peanut butter, potatoes, bananas. Follow-up to PCP. Sepsis Event Note - Evaluation Sepsis Screening Result: No Definite Risk - Focused Exam Vital Signs: Vital Signs Temp Pulse Resp BP Pulse Ox 10/11/19 15:42 97.6 F 105 H 17 129/95 H 96 Date Exam was Performed: 10/11/19 Time Exam was Performed: 17:22 - My Orders Last 24 Hours: My Active Orders 10/11/19 16:10 Sodium Chloride 0.9% [Saline Flush] 10 ml FLUSH ASDIRECTED PRN Saline Lock Insert [OM.PC] Routine - Assessment/Plan Last 24 Hours: My Active Orders 10/11/19 16:10 Sodium Chloride 0.9% [Saline Flush] 10 ml FLUSH ASDIRECTED PRN Saline Lock Insert [OM.PC] Routine
--- NOTE | 2019-10-11 17:01 | CT ---
CT maxillofacial Technique: Multiple axial sections were obtained through the paranasal sinuses. Reconstructed coronal and sagittal images were obtained. Comparison: No previous maxillofacial exam. Findings: Inferior floor fracture is identified on the right side with mild comminution and mild depression of the fracture fragments by about 6.6 mm. Fluid is seen most likely representing blood within the right maxillary sinus. No additional facial bone fracture is noted. Impression: 1. Mildly depressed and mildly comminuted inferior orbital floor blowout fracture on the right side. 2. Blood is noted within the right maxillary sinus. Diagnostic code #3 This report was dictated in MDT
[2019-10-11] MEDS ORDERED: Dexamethasone 10 MG/ML SDV IVPUSH ONE (17:19)
[2019-10-11] MEDS ORDERED: Potassium Chloride 20 MEQ Tab.ER PO ONE (17:36)
== END 2019-10-11 17:53 | disposition home or self-care (01) ==
LOC: JD.ED 15:27
DX: S02.31XA Fracture of orbital floor, right side, initial encounter for closed fracture (principal); E87.6 Hypokalemia; F17.210 Nicotine dependence, cigarettes, uncomplicated; Z79.2 Long term (current) use of antibiotics; Z86.73 Personal history of transient ischemic attack (TIA), and cerebral infarction without residual deficits; X58.XXXA Exposure to other specified factors, initial encounter
CPT/HCPCS: 36415; 70486; 70486-26; 80053; 85025; 86140; 96374; 96375; 99284-25; A9270-GY; J1100; J1885

== ENCOUNTER 2020-10-20 15:38 | Emergency (ER) | payer SELFPAY ==
[2020-10-20] MEDS ORDERED: Sodium Chloride 0.9% 10 ML Syringe FLUSH PRN (15:52)
[2020-10-20 16:08] VITALS: BP 142/93; PULSE 100
[2020-10-20] MEDS ORDERED: Sodium Chloride 0.9% 1,000 ML IV ONE (16:48)
--- NOTE | 2020-10-20 16:48 | EDM.PDOC ---
ED HPI GENERAL MEDICAL PROBLEM - General Chief Complaint: Neuro Symptoms/Deficits Stated Complaint: RT SIDE NUMBNESS/RT EYE VISION BLURRED Time Seen by Provider: 10/20/20 15:48 Source of Information: Reports: Patient History Limitations: Reports: No Limitations - History of Present Illness INITIAL COMMENTS - FREE TEXT/NARRATIVE: The patient presents with right sided numbness and weakness, headache and chest pain. She said she started not feeling right about 10am. When he arrived, he noticed she was not acting right at about 2pm. The patient said she had 2 strokes in the past. She has no fever, chills, cough, chest pain, shortness of breath, abdominal pain, nausea or vomiting. Onset: Gradual Duration: Hour(s): Location: Reports: Head, Chest Quality: Reports: Sharp Severity: Moderate Improves with: Reports: None Worsens with: Reports: None Associated Symptoms: Reports: Chest Pain, Headaches. Denies: Cough, Fever/Chills, Nausea/Vomiting, Shortness of Breath Chest Pain Score (Numeric/FACES): 5 - Related Data Allergies Allergy/AdvReac Type Severity Reaction Status Date / Time No Known Allergies Allergy Verified 10/11/19 15:47 Home Meds: Home Meds Cefdinir [Omnicef] 300 mg PO BID 10 Days #20 cap 10/11/19 [Rx] Melatonin 2.5 mg PO BEDTIME 10/11/19 [History] metroNIDAZOLE [Flagyl] 500 mg PO Q12H 7 Days #14 tab 10/11/19 [Rx] traMADol [Ultram] 50 mg PO Q6H PRN 4 Days #12 tab 10/11/19 [Rx] Past Medical History - Past Health History Medical/Surgical History: Denies Medical/Surgical History HEENT History: Reports: Impaired Vision, Otitis Media Other HEENT History: wears eyeglasses Cardiovascular History: Reports: Other (See Below) Other Cardiovascular History: failed stress test 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: Musculoskeletal History: Reports: Other (See Below) Other Musculoskeletal History: left heel spur removed Neurological History: Reports: CVA Psychiatric History: Reports: Addiction, Anxiety - Past Surgical History GI Surgical History: Reports: Appendectomy, Cholecystectomy Female Surgical History: Reports: Tubal Ligation, Other (See Below) Social & Family History - Family History Family Medical History: No Pertinent Family History - Caffeine Use Caffeine Use: Reports: None - Living Situation & Occupation Living situation: Reports: , with Spouse Occupation: Employed ED ROS GENERAL - Review of Systems Review Of Systems: See Below Constitutional: Reports: No Symptoms HEENT: Reports: No Symptoms Respiratory: Reports: No Symptoms Cardiovascular: Reports: No Symptoms Endocrine: Reports: No Symptoms GI/Abdominal: Reports: No Symptoms : Reports: No Symptoms Musculoskeletal: Reports: No Symptoms Neurological: Reports: Headache, Numbness (right side), Weakness (right side) ED EXAM, NEURO - Physical Exam Exam: See Below Exam Limited By: No Limitations General Appearance: Alert, No Apparent Distress Ears: Normal External Exam Nose: Normal Inspection Head Exam: Atraumatic, Normocephalic Neck: Normal Inspection Respiratory/Chest: No Respiratory Distress, Lungs Clear, Normal Breath Sounds Cardiovascular: Regular Rate, Rhythm, No Edema, No Murmur GI/Abdominal: Soft, Non-Tender, No Organomegaly, No Mass Neurological: Alert, No Motor/Sensory Deficits, Other (slurred speech and some confusion) #1 Interpretation EKG Date: 10/20/20 Time: 15:52 Rhythm: Other (sinus tachycardia) Rate (Beats/Min): 106 [place]: Normal P-Wave: Present QRS: Normal ST-T: Normal QT: Normal EKG Interpretation Comments: Q waves in the anterior leads Course - Vital Signs Last Recorded V/S: Last Vital Signs Temp 98.4 F 10/20/20 15:53 Pulse 100 10/20/20 15:53 Resp 13 10/20/20 15:53 BP 142/93 H 10/20/20 15:53 Pulse Ox 95 10/20/20 15:53 - Orders/Labs/Meds Orders: Active Orders 24 hr Category Date Time Status Cardiac Monitoring [RC] . DIRECTED Care 10/20/20 15:52 Active EKG Documentation Completion [RC] STAT Care 10/20/20 15:53 Active Peripheral IV Care [RC] . DIRECTED Care 10/20/20 15:53 Active Chest 1V Frontal [CR] Stat Exams 10/20/20 15:53 Taken Head wo Cont [CT] Stat Exams 10/20/20 15:53 Taken DRUG SCREEN, URINE [URCHEM] Stat Lab 10/20/20 16:45 Received Sodium Chloride 0.9% [Normal Saline] 1,000 ml Med 10/20/20 16:48 Active IV ONETIME Sodium Chloride 0.9% [Saline Flush] Med 10/20/20 15:52 Active 10 ml FLUSH ASDIRECTED PRN Peripheral IV Insertion Adult [OM.PC] Stat Oth 10/20/20 15:52 Ordered Medication Orders Sodium Chloride (Normal Saline) 1,000 mls @ 1,000 mls/hr IV ONETIME ONE Stop: 10/20/20 17:47 Sodium Chloride (Sodium Chloride 0.9% 10 Ml Syringe) 10 ml FLUSH ASDIRECTED PRN PRN Reason: Keep Vein Open Labs: Laboratory Tests 10/20/20 10/20/20 10/20/20 Range/Units 15:53 15:55 15:55 WBC 4.46 (3.98-10.04) K/mm3 RBC 4.24 (3.98-5.22) M/mm3 Hgb 15.0 (11.2-15.7) gm/dl Hct 43.1 (34.1-44.9) % MCV 101.7 H D (79.4-94.8) fl MCH 35.4 H (25.6-32.2) pg MCHC 34.8 (32.2-35.5) g/dl RDW Std Deviation 49.1 H (36.4-46.3) fL Plt Count 220 (182-369) K/mm3 MPV 9.4 (9.4-12.3) fl Neut % (Auto) 37.0 (34.0-71.1) % Lymph % (Auto) 47.8 (19.3-51.7) % [place] % (Auto) 13.7 H (4.7-12.5) % Eos % (Auto) 0.9 (0.7-5.8) Baso % (Auto) 0.4 (0.1-1.2) % Neut # (Auto) 1.65 (1.56-6.13) K/mm3 Lymph # (Auto) 2.13 (1.18-3.74) K/mm3 [place] # (Auto) 0.61 H (0.24-0.36) K/mm3 Eos # (Auto) 0.04 (0.04-0.36) K/mm3 Baso # (Auto) 0.02 (0.01-0.08) K/mm3 PT 10.3 (9.7-12.0) SECONDS INR 0.96 APTT 26.1 (21.7-31.4) SECONDS Sodium (136-145) mEq/L Potassium (3.5-5.1) mEq/L Chloride (98-107) mEq/L Carbon Dioxide (21-32) mEq/L Anion Gap (5-15) BUN (7-18) mg/dL Creatinine (0.55-1.02) mg/dL Est Cr Clr Drug Dosing mL/min Estimated GFR (MDRD) (>60) mL/min BUN/Creatinine Ratio (14-18) Glucose (70-99) mg/dL POC Glucose 113 H (70-99) mg/dL Calcium (8.5-10.1) mg/dL Total Bilirubin (0.2-1.0) mg/dL AST (15-37) U/L ALT (14-59) U/L Alkaline Phosphatase (46-116) U/L Troponin I (0.00-0.056) ng/mL Total Protein (6.4-8.2) g/dl Albumin (3.4-5.0) g/dl Globulin gm/dL Albumin/Globulin Ratio (1-2) Ethyl Alcohol (0.00) gm% 10/20/20 Range/Units 15:55 WBC (3.98-10.04) K/mm3 RBC (3.98-5.22) M/mm3 Hgb (11.2-15.7) gm/dl Hct (34.1-44.9) % MCV (79.4-94.8) fl MCH (25.6-32.2) pg MCHC (32.2-35.5) g/dl RDW Std Deviation (36.4-46.3) fL Plt Count (182-369) K/mm3 MPV (9.4-12.3) fl Neut % (Auto) (34.0-71.1) % Lymph % (Auto) (19.3-51.7) % [place] % (Auto) (4.7-12.5) % Eos % (Auto) (0.7-5.8) Baso % (Auto) (0.1-1.2) % Neut # (Auto) (1.56-6.13) K/mm3 Lymph # (Auto) (1.18-3.74) K/mm3 [place] # (Auto) (0.24-0.36) K/mm3 Eos # (Auto) (0.04-0.36) K/mm3 Baso # (Auto) (0.01-0.08) K/mm3 PT (9.7-12.0) SECONDS INR APTT (21.7-31.4) SECONDS Sodium 138 (136-145) mEq/L Potassium 3.5 (3.5-5.1) mEq/L Chloride 97 L (98-107) mEq/L Carbon Dioxide 26 (21-32) mEq/L Anion Gap 18.5 H (5-15) BUN 8 (7-18) mg/dL Creatinine 0.7 (0.55-1.02) mg/dL Est Cr Clr Drug Dosing 106.27 mL/min Estimated GFR (MDRD) > 60 (>60) mL/min BUN/Creatinine Ratio 11.4 L (14-18) Glucose 115 H (70-99) mg/dL POC Glucose (70-99) mg/dL Calcium 8.5 (8.5-10.1) mg/dL Total Bilirubin 0.4 (0.2-1.0) mg/dL AST 120 H (15-37) U/L ALT 54 (14-59) U/L Alkaline Phosphatase 66 (46-116) U/L Troponin I < 0.017 (0.00-0.056) ng/mL Total Protein 7.8 (6.4-8.2) g/dl Albumin 3.9 (3.4-5.0) g/dl Globulin 3.9 gm/dL Albumin/Globulin Ratio 1.0 (1-2) Ethyl Alcohol 0.50 (0.00) gm% Meds: Medications Generic Name Dose Route Start Last Admin Trade Name Freq PRN Reason Stop Dose Admin Sodium Chloride 1,000 mls @ 1,000 mls/hr 10/20/20 16:48 Normal Saline IV 10/20/20 17:47 ONETIME ONE Sodium Chloride 10 ml 10/20/20 15:52 Sodium Chloride 0.9% 10 Ml Syringe FLUSH ASDIRECTED PRN Keep Vein Open - Re-Assessments/Exams Free Text/Narrative Re-Assessment/Exam: 10/20/20 16:46 A stroke alert was called. I went into the room right away. The last time know well was 10am this morning. I ordered an IV saline lock, EKG, CT of her head and labs. Her EKG shows a sinus tachycardia at 106. Her CT shows no acute intracranial abnormality. Her CBC looks good. Her anion gap is elevated at 18.5. Her glucose is 115. Her AST is elevated at 120. Her troponin is negative. Her ETOH is very high at 0.5. 10/20/20 17:04 The patient is wanting to leave now. She has a responsible adult with her. I will discharge her home. Departure - Departure Time of Disposition: 17:05 Disposition: Home, Self-Care 01 Condition: Good Clinical Impression: Numbness Alcohol intoxication Qualifiers: Complication of substance-induced condition: uncomplicated Qualified Code(s): F10.920 - Alcohol use, unspecified with intoxication, uncomplicated - Discharge Information *PRESCRIPTION DRUG MONITORING PROGRAM REVIEWED*: Not Applicable *COPY OF PRESCRIPTION DRUG MONITORING REPORT IN PATIENT RITA: Not Applicable Referrals: PCP,None [Primary Care Provider] - Forms: ED Department Discharge Additional Instructions: Go home and rest. Do not drink alcohol. If you need help stopping drinking, call [facility] at . Please return if you are worse. Sepsis Event Note (ED) - Evaluation Sepsis Screening Result: No Definite Risk - Focused Exam Vital Signs: Vital Signs Temp Pulse Resp BP Pulse Ox 10/20/20 15:53 98.4 F 100 13 142/93 H 95 - My Orders Last 24 Hours: My Active Orders 10/20/20 15:52 Cardiac Monitoring [RC] . DIRECTED Sodium Chloride 0.9% [Saline Flush] 10 ml FLUSH ASDIRECTED PRN Peripheral IV Insertion Adult [OM.PC] Stat 10/20/20 15:53 EKG Documentation Completion [RC] STAT Peripheral IV Care [RC] . DIRECTED Chest 1V Frontal [CR] Stat Head wo Cont [CT] Stat 10/20/20 16:45 DRUG SCREEN, URINE [URCHEM] Stat 10/20/20 16:48 Sodium Chloride 0.9% [Normal Saline] 1,000 ml IV ONETIME - Assessment/Plan Last 24 Hours: My Active Orders 10/20/20 15:52 Cardiac Monitoring [RC] . DIRECTED Sodium Chloride 0.9% [Saline Flush] 10 ml FLUSH ASDIRECTED PRN Peripheral IV Insertion Adult [OM.PC] Stat 10/20/20 15:53 EKG Documentation Completion [RC] STAT Peripheral IV Care [RC] . DIRECTED Chest 1V Frontal [CR] Stat Head wo Cont [CT] Stat 10/20/20 16:45 DRUG SCREEN, URINE [URCHEM] Stat 10/20/20 16:48 Sodium Chloride 0.9% [Normal Saline] 1,000 ml IV ONETIME
--- NOTE | 2020-10-21 07:42 | CT ---
Head CT Technique: Multiple axial sections through the brain were obtained. Intravenous contrast was not utilized. Reconstructed coronal and sagittal images were also obtained. Comparison: Prior head CT study of 01/26/19. Findings: Ventricles along with basal cisterns and sulci over the convexities are within normal limits for the patient's age. No abnormal parenchymal densities are seen. No evidence of intracranial hemorrhage. No midline shift or mass-effect is appreciated. Visualized mastoid sinuses and paranasal sinuses show nothing acute. No acute calvarial abnormality is appreciated. Impression: 1. Nothing acute is appreciated on noncontrast head CT study. 2. Please correlate if patient's symptoms warrant further evaluation by MRI. Diagnostic code #1 I agree with preliminary report from [facility], finalized on 10/20/20, 5:16 PM CDT, code 1
--- NOTE | 2020-10-21 07:44 | CR ---
Chest: Portable view of the chest was obtained. Comparison: Prior chest x-ray of 01/26/19. Heart size and mediastinum are normal. Slight parenchymal density is seen within the left lung base which is most likely chronic. Lungs otherwise are clear. No acute parenchymal change is otherwise seen. No acute osseous abnormality is appreciated. Impression: 1. Slight parenchymal density within left lung base which is most likely chronic. 2. Nothing acute is otherwise seen on portable chest x-ray. Diagnostic code #2
== END 2020-10-20 17:15 | disposition home or self-care (01) ==
LOC: JD.ED 15:38
DX: R20.0 Anesthesia of skin (principal); F10.920 Alcohol use, unspecified with intoxication, uncomplicated; Y90.0 Blood alcohol level of less than 20 mg/100 ml
CPT/HCPCS: 36415; 70450; 70450-26; 71045; 71045-26; 80053; 80306; 80307; 82947; 84484; 85025; 85610; 85730; 93005; 93010; 99284; 99285-25

== ENCOUNTER 2021-03-28 09:04 | Emergency (ER) | payer SELFPAY ==
[2021-03-28 09:45] VITALS: BP 142/99; PULSE 108
[2021-03-28] MEDS ORDERED: Sodium Chloride 0.9% 10 ML Syringe FLUSH PRN ×2 (10:03→10:07)
[2021-03-28] MEDS ORDERED: Iopamidol 755 Mg/ML 100 ML Bottle IVPUSH ONE (10:07)
[2021-03-28] MEDS ORDERED: Sodium Chloride 0.9% 100 ML IV SCH (10:15)
[2021-03-28] MEDS ORDERED: Sodium Chloride 0.9% 1,000 ML IV SCH (10:15)
[2021-03-28] MEDS: Potassium Chloride 10 MEQ in Premix Bag 1 BAG IV SCH ×3 (10:54→13:28)
--- NOTE | 2021-03-28 11:41 | CT ---
CT chest Technique: Multiple axial sections through the chest were obtained. Intravenous contrast was utilized. Study has been performed as a pulmonary angiogram protocol. Comparison: No prior chest CT is available, prior chest x-ray of 03/27/21 is available. Findings: Filling defects are seen within the distal right main pulmonary artery extending into the right upper and right lower lung arteries. Filling defects continue into a subsegmental branch of the right lower lung. Filling defects are seen within the segmental branch of the lingula compatible with additional pulmonary emboli. There is increased density within the right lung base most likely representing an area of developing pulmonary infarct. Thoracic aorta shows no aneurysm. Mediastinum shows no adenopathy. No axillary adenopathy is seen. No pericardial thickening is seen. Diffuse fatty infiltration is noted within the liver. Other visualized upper abdominal structures are within normal limits. Increased density is seen within the right lung base as noted above. There is minimal density within the lingula most likely representing a small area of atelectasis. Lungs otherwise are clear. Bone window settings were reviewed which show no acute osseous finding. Impression: 1. Filling defects within the distal right main pulmonary artery with clot extending into the right upper and right lower lung arteries. Pulmonary emboli are seen within the subsegmental branch of the right lower lung as well as segmental branch within the lingula. 2. Increased density within the right lung base most likely representing developing pulmonary infarct. 3. Slight density within the lingula most likely due to atelectasis. 4. Diffuse fatty infiltration seen within the liver. Diagnostic code #5 Note: Findings were discussed with provider on 03/28/21, 11:02 AM
[2021-03-28] MEDS ORDERED: Ibuprofen 200 MG Tab PO ONE (13:26)
[2021-03-28] MEDS ORDERED: Apixaban 5 MG Tab PO ONE (13:26)
--- NOTE | 2021-03-28 13:56 | EDM.PDOC ---
ED HPI GENERAL MEDICAL PROBLEM - General Chief Complaint: Cardiovascular Problem Stated Complaint: POSSIBLE BLOOD CLOT Time Seen by Provider: 03/28/21 09:33 Source of Information: Reports: Patient History Limitations: Reports: No Limitations - History of Present Illness INITIAL COMMENTS - FREE TEXT/NARRATIVE: The patient presents with a cough, shortness of breath, chest pain, nausea, vomiting, diarrhea and generalized weakness. She also has chills, muscle aches and no appetite. This has been going on for about 5 days. Her has COVID. She was seen by Dr Octavio Lim yesterday and had labs, EKG, and a CXR done. She also had a COVID swab done and it was negative. Her D-dimer was elevated. Dr Lim tried to contact the patient but was unsuccessful. He had the PD check on her. They told her to go to the ER. She came in this morning to have further work up done. Onset: Gradual Duration: Day(s): (5) Location: Reports: Chest Quality: Reports: Sharp Severity: Mild Improves with: Reports: None Worsens with: Reports: None Associated Symptoms: Reports: Chest Pain, Cough, Fever/Chills, Headaches, Nausea/Vomiting, Shortness of Breath - Related Data Allergies Allergy/AdvReac Type Severity Reaction Status Date / Time No Known Allergies Allergy Verified 03/28/21 12:39 Home Meds: Home Meds Apixaban [Eliquis] 5 mg PO BID #60 tablet 03/28/21 [Rx] Past Medical History - Past Health History Medical/Surgical History: Denies Medical/Surgical History HEENT History: Reports: Impaired Vision, Otitis Media Other HEENT History: wears eyeglasses Cardiovascular History: Reports: Other (See Below) Other Cardiovascular History: failed stress test 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: Musculoskeletal History: Reports: Other (See Below) Other Musculoskeletal History: left heel spur removed Neurological History: Reports: CVA Psychiatric History: Reports: Addiction, Anxiety - Past Surgical History GI Surgical History: Reports: Appendectomy, Cholecystectomy Female Surgical History: Reports: Tubal Ligation, Other (See Below) Other Female Surgeries/Procedures: cysts removed from uterus Musculoskeletal Surgical History: Reports: Other (See Below) Social & Family History - Family History Family Medical History: No Pertinent Family History - Tobacco Use Tobacco Use Status *Q: Current Every Day Tobacco User Years of Tobacco use: 25 Packs/Tins Daily: 0.5 Used Tobacco, but Quit: No - Caffeine Use Caffeine Use: Reports: None - Recreational Drug Use Recreational Drug Use: No - Living Situation & Occupation Living situation: Reports: , with Spouse Occupation: Employed ED ROS GENERAL - Review of Systems Review Of Systems: See Below Constitutional: Reports: Fever, Chills, Malaise, Weakness, Fatigue HEENT: Reports: No Symptoms Respiratory: Reports: Shortness of Breath, Cough Cardiovascular: Reports: Chest Pain Endocrine: Reports: Fatigue GI/Abdominal: Reports: Diarrhea, Nausea, Vomiting. Denies: Abdominal Pain : Reports: No Symptoms Musculoskeletal: Reports: Muscle Pain ED EXAM, GENERAL - Physical Exam Exam: See Below Exam Limited By: No Limitations General Appearance: Alert, No Apparent Distress Ears: Normal External Exam Nose: Normal Inspection Head: Atraumatic, Normocephalic Neck: Normal Inspection Respiratory/Chest: No Respiratory Distress, Decreased Breath Sounds Cardiovascular: Regular Rate, Rhythm, No Edema, No Murmur GI/Abdominal: Soft, Non-Tender, No Organomegaly, No Mass Back Exam: Normal Inspection Course - Vital Signs Last Recorded V/S: Last Vital Signs Temp 98.2 F 03/28/21 09:42 Pulse 108 H 03/28/21 09:42 Resp 16 03/28/21 09:42 BP 142/99 H 03/28/21 09:42 Pulse Ox 98 03/28/21 09:42 - Orders/Labs/Meds Orders: Active Orders 24 hr Category Date Time Status Cardiac Monitoring [RC] . DIRECTED Care 03/28/21 10:04 Active Peripheral IV Care [RC] . DIRECTED Care 03/28/21 10:04 Active Potassium Chloride [KCl in Water 10 MEQ/100 ML] 10 meq Med 03/28/21 10:15 Active Premix Bag 1 bag IV Q1H Sodium Chloride 0.9% [Normal Saline] 1,000 ml Med 03/28/21 10:15 Active IV .BOLUS Sodium Chloride 0.9% [Normal Saline] 100 ml Med 03/28/21 10:15 Active IV ASDIRECTED Sodium Chloride 0.9% [Saline Flush] Med 03/28/21 10:03 Active 10 ml FLUSH ASDIRECTED PRN Sodium Chloride 0.9% [Saline Flush] Med 03/28/21 10:07 Active 10 ml FLUSH ONETIME PRN Peripheral IV Insertion Adult [OM.PC] Stat Oth 03/28/21 10:03 Ordered Medication Orders Sodium Chloride (Normal Saline) 1,000 mls @ 1,000 mls/hr IV .BOLUS KYLE Last Admin: 03/28/21 11:13 Dose: 1,000 mls/hr Documented by: SPEEDY Potassium Chloride 10 meq/ (Premix) 100 mls @ 100 mls/hr IV Q1H KYLE Stop: 03/28/21 14:14 Last Admin: 03/28/21 13:28 Dose: 100 mls/hr Documented by: Infusion: 03/28/21 13:28 Dose: 100 mls/hr Documented by: Admin: 03/28/21 13:26 Dose: 100 mls/hr Documented by: Infusion: 03/28/21 11:54 Dose: 100 mls/hr Documented by: Admin: 03/28/21 10:54 Dose: 100 mls/hr Documented by: SPEEDY Sodium Chloride (Normal Saline) 100 mls @ 75 mls/hr IV ASDIRECTED KYLE Last Admin: 03/28/21 10:43 Dose: 75 mls/hr Documented by: MONIQUE Sodium Chloride (Sodium Chloride 0.9% 10 Ml Syringe) 10 ml FLUSH ASDIRECTED PRN PRN Reason: Keep Vein Open Sodium Chloride (Sodium Chloride 0.9% 10 Ml Syringe) 10 ml FLUSH ONETIME PRN PRN Reason: IV FLUSH Last Admin: 03/28/21 10:42 Dose: 10 ml Documented by: MONIQUE Labs: Laboratory Tests 03/28/21 Range/Units 10:45 SARS-CoV-2 RNA (NORMA) Negative (NEGATIVE) Meds: Medications Generic Name Dose Route Start Last Admin Trade Name Freq PRN Reason Stop Dose Admin Sodium Chloride 1,000 mls @ 1,000 mls/hr 03/28/21 10:15 03/28/21 11:13 Normal Saline IV 1,000 mls/hr .BOLUS KYLE Administration Potassium Chloride 10 meq/ 100 mls @ 100 mls/hr 03/28/21 10:15 03/28/21 13:28 Premix IV 03/28/21 14:14 100 mls/hr Q1H KYLE Administration Sodium Chloride 100 mls @ 75 mls/hr 03/28/21 10:15 03/28/21 10:43 Normal Saline IV 75 mls/hr ASDIRECTED KYLE Administration Sodium Chloride 10 ml 03/28/21 10:03 Sodium Chloride 0.9% 10 Ml Syringe FLUSH ASDIRECTED PRN Keep Vein Open Sodium Chloride 10 ml 03/28/21 10:07 03/28/21 10:42 Sodium Chloride 0.9% 10 Ml Syringe FLUSH 10 ml ONETIME PRN Administration IV FLUSH Discontinued Medications Generic Name Dose Route Start Last Admin Trade Name [place] PRN Reason Stop Dose Admin Apixaban 10 mg 03/28/21 13:26 03/28/21 13:31 Apixaban 5 Mg Tab PO 03/28/21 13:27 10 mg ONETIME ONE Administration Ibuprofen 200 mg 03/28/21 13:26 03/28/21 13:31 Ibuprofen 200 Mg Tab PO 03/28/21 13:27 200 mg ONETIME ONE Administration Iopamidol 100 ml 03/28/21 10:07 03/28/21 10:42 Iopamidol 755 Mg/Ml 100 Ml Bottle IVPUSH 03/28/21 10:08 100 ml ONETIME ONE Administration - Re-Assessments/Exams Free Text/Narrative Re-Assessment/Exam: 03/28/21 13:58 I ordered an IV NS 1L bolus, potassium 40meq IV, CT angio and COVID test. The patient did not want any labs and did not want zofran. Her potassium was low at 2.8 so she did agree with the potassium. Her CT angio shows filling defects within the distal main pulmonary artery within clot extending into the right upper and right lower lung arteries. Her COVID again is negative. I will get her on eliquis. I will give her a dose here and she wanted ibuprofen for pain. Departure - Departure Time of Disposition: 14:05 Disposition: Home, Self-Care 01 Condition: Good Clinical Impression: COVID-19 Pulmonary embolism Qualifiers: Pulmonary embolism type: other Chronicity: acute Acute cor pulmonale presence: without acute cor pulmonale Qualified Code(s): I26.99 - Other pulmonary embolism without acute cor pulmonale Prescriptions: Apixaban [Eliquis] 5 mg PO BID #60 tablet Referrals: PCP,None [Primary Care Provider] - Octavio Lim MD [Physician] - 1 Week Additional Instructions: Take the eliquis 10mg by mouth 2 times per day for 7 days and then 5mg 2 times per day after that. Keep taking the zofran and immodium. Follow up with Dr Lim within a week. Please return if you are worse. Sepsis Event Note (ED) - Evaluation Sepsis Screening Result: No Definite Risk - Focused Exam Vital Signs: Vital Signs Temp Pulse Resp BP Pulse Ox 03/28/21 09:42 98.2 F 108 H 16 142/99 H 98 - My Orders Last 24 Hours: My Active Orders 03/28/21 10:03 Sodium Chloride 0.9% [Saline Flush] 10 ml FLUSH ASDIRECTED PRN Peripheral IV Insertion Adult [OM.PC] Stat 03/28/21 10:04 Cardiac Monitoring [RC] . DIRECTED Peripheral IV Care [RC] . DIRECTED 03/28/21 10:07 Sodium Chloride 0.9% [Saline Flush] 10 ml FLUSH ONETIME PRN 03/28/21 10:15 Potassium Chloride [KCl in Water 10 MEQ/100 ML] 10 meq Premix Bag 1 bag IV Q1H Sodium Chloride 0.9% [Normal Saline] 1,000 ml IV .BOLUS Sodium Chloride 0.9% [Normal Saline] 100 ml IV ASDIRECTED - Assessment/Plan Last 24 Hours: My Active Orders 03/28/21 10:03 Sodium Chloride 0.9% [Saline Flush] 10 ml FLUSH ASDIRECTED PRN Peripheral IV Insertion Adult [OM.PC] Stat 03/28/21 10:04 Cardiac Monitoring [RC] . DIRECTED Peripheral IV Care [RC] . DIRECTED 03/28/21 10:07 Sodium Chloride 0.9% [Saline Flush] 10 ml FLUSH ONETIME PRN 03/28/21 10:15 Potassium Chloride [KCl in Water 10 MEQ/100 ML] 10 meq Premix Bag 1 bag IV Q1H Sodium Chloride 0.9% [Normal Saline] 1,000 ml IV .BOLUS Sodium Chloride 0.9% [Normal Saline] 100 ml IV ASDIRECTED
== END 2021-03-28 14:35 | disposition home or self-care (01) ==
LOC: JD.ED 09:04
DX: U07.1 COVID-19 (principal); I26.99 Other pulmonary embolism without acute cor pulmonale; Z79.01 Long term (current) use of anticoagulants; Z86.73 Personal history of transient ischemic attack (TIA), and cerebral infarction without residual deficits; Z72.0 Tobacco use
CPT/HCPCS: 71275; 87635; 99285; A9270; J3480; J7030; Q9967; U0002

== ENCOUNTER 2021-04-30 15:23 | Emergency (ER) | payer OTHER ==
[2021-04-30 15:45] VITALS: BP 113/83; PULSE 115
--- NOTE | 2021-04-30 16:04 | EDM.PDOC ---
ED HPI GENERAL MEDICAL PROBLEM - General Chief Complaint: Chest Pain Stated Complaint: CHEST PAIN Time Seen by Provider: 04/30/21 16:03 - History of Present Illness INITIAL COMMENTS - FREE TEXT/NARRATIVE: 50-year-old female presents the emergency room with chest pain. Patient was diagnosed with right-sided pulmonary embolism on the of last month and has been started on Eliquis. The patient is concerned that the Eliquis is causing fatigue. The patient's blood clot was a complication secondary to the Covid infection. Patient had pretty significant symptoms secondary to Covid including loss of taste and smell nausea vomiting diarrhea generalized aches. Patient still experiencing the generalized aches. Over the last 4 days or so her chest pain has been getting worse on the right side. It is especially aggravated with change in position and deep breathing. The patient is mildly tachycardic here. And she assures me she is taking her Eliquis as directed. Left Chest Pain Score (Numeric/FACES): 8 - Related Data Allergies Allergy/AdvReac Type Severity Reaction Status Date / Time No Known Allergies Allergy Verified 04/30/21 15:46 Home Meds: Home Meds Apixaban [Eliquis] 5 mg PO BID #60 tablet 03/28/21 [Rx] Potassium Chloride [Klor-Con M20] 20 meq PO BID #5 tab.er 04/30/21 [Rx] Past Medical History - Past Health History Medical/Surgical History: Denies Medical/Surgical History HEENT History: Reports: Impaired Vision, Otitis Media Other HEENT History: wears eyeglasses Cardiovascular History: Reports: Other (See Below) Other Cardiovascular History: failed stress test [employer] History: Reports: Musculoskeletal History: Reports: Other (See Below) Other Musculoskeletal History: left heel spur removed Neurological History: Reports: CVA Psychiatric History: Reports: Addiction, Anxiety - Past Surgical History GI Surgical History: Reports: Appendectomy, Cholecystectomy Female Surgical History: Reports: Tubal Ligation, Other (See Below) Other Female Surgeries/Procedures: cysts removed from uterus Musculoskeletal Surgical History: Reports: Other (See Below) Social & Family History - Family History Family Medical History: No Pertinent Family History - Caffeine Use Caffeine Use: Reports: None - Living Situation & Occupation Living situation: Reports: , with Spouse Occupation: Employed ED ROS GENERAL - Review of Systems Review Of Systems: See Below Constitutional: Reports: Malaise, Fatigue HEENT: Reports: No Symptoms Respiratory: Reports: Pleuritic Chest Pain. Denies: Shortness of Breath, Hemoptysis Cardiovascular: Reports: Chest Pain (Right sided) Endocrine: Reports: No Symptoms GI/Abdominal: Reports: No Symptoms : Reports: No Symptoms Musculoskeletal: Reports: Other (He is generally achy all over) Skin: Reports: No Symptoms Neurological: Reports: No Symptoms ED EXAM, GENERAL - Physical Exam Exam: See Below Exam Limited By: No Limitations General Appearance: Alert, No Apparent Distress Head: Atraumatic, Normocephalic Neck: Normal Inspection, Supple, Non-Tender, Full Range of Motion Respiratory/Chest: No Respiratory Distress, Lungs Clear, Normal Breath Sounds Cardiovascular: Regular Rate, Rhythm, No Edema, No Murmur GI/Abdominal: Normal Bowel Sounds, Soft, Non-Tender #1 Interpretation EKG Date: 04/30/21 Rhythm: Other (Sinus tachycardia) Rate (Beats/Min): 110 [place]: Normal P-Wave: Present QRS: Other (Borderline Q waves V1 V2 low voltage in the precordial leads shayna rderline in the extremity leads) ST-T: Normal QT: Normal Comparison: No Change (No significant change noted from 10/20/2020) EKG Interpretation Comments: Abnormal EKG Course - Vital Signs Last Recorded V/S: Last Vital Signs Temp 36.3 C 04/30/21 15:40 Pulse 115 H 04/30/21 15:40 Resp 18 04/30/21 15:40 BP 113/83 04/30/21 15:40 Pulse Ox 97 04/30/21 15:40 - Orders/Labs/Meds Orders: Active Orders 24 hr Category Date Time Status UA RFX MADELINE AND CULT IF INDIC [URIN] Stat Lab 04/30/21 16:18 Ordered Labs: Laboratory Tests 04/30/21 04/30/21 04/30/21 Range/Units 16:34 16:34 16:34 WBC 5.42 (3.98-10.04) K/mm3 RBC 4.11 (3.98-5.22) M/mm3 Hgb 16.0 H (11.2-15.7) gm/dl Hct 44.3 (34.1-44.9) % MCV 107.8 H (79.4-94.8) fl MCH 38.9 H (25.6-32.2) pg MCHC 36.1 H (32.2-35.5) g/dl RDW Std Deviation 59.7 H (36.4-46.3) fL Plt Count 182 D (182-369) K/mm3 MPV 9.8 (9.4-12.3) fl Neut % (Auto) 55.3 (34.0-71.1) % Lymph % (Auto) 35.2 (19.3-51.7) % [place] % (Auto) 8.3 (4.7-12.5) % Eos % (Auto) 0.6 L (0.7-5.8) Baso % (Auto) 0.4 (0.1-1.2) % Neut # (Auto) 3.00 (1.56-6.13) K/mm3 Lymph # (Auto) 1.91 (1.18-3.74) K/mm3 [place] # (Auto) 0.45 H (0.24-0.36) K/mm3 Eos # (Auto) 0.03 L (0.04-0.36) K/mm3 Baso # (Auto) 0.02 (0.01-0.08) K/mm3 PT 11.4 (9.7-12.0) SECONDS INR 1.03 APTT 30.6 (21.7-31.4) SECONDS Sodium 144 D (136-145) mEq/L Potassium 3.1 L (3.5-5.1) mEq/L Chloride 106 D (98-107) mEq/L Carbon Dioxide 29 (21-32) mEq/L Anion Gap 12.1 (5-15) BUN 2 L (7-18) mg/dL Creatinine 0.5 L (0.55-1.02) mg/dL Est Cr Clr Drug Dosing 135.16 mL/min Estimated GFR (MDRD) > 60 (>60) mL/min BUN/Creatinine Ratio 4.0 L (14-18) Glucose 90 (70-99) mg/dL Calcium 8.4 L (8.5-10.1) mg/dL Total Bilirubin 0.7 (0.2-1.0) mg/dL AST 75 H (15-37) U/L ALT 45 (14-59) U/L Alkaline Phosphatase 76 (46-116) U/L Troponin I < 0.017 (0.00-0.056) ng/mL Total Protein 6.8 (6.4-8.2) g/dl Albumin 2.9 L (3.4-5.0) g/dl Globulin 3.9 gm/dL Albumin/Globulin Ratio 0.7 L (1-2) Lipase 113 (73-393) U/L Meds: Medications Discontinued Medications Generic Name Dose Route Start Last Admin Trade Name Nola PRN Reason Stop Dose Admin Potassium Chloride 40 meq 04/30/21 18:17 04/30/21 18:21 Potassium Chloride 20 Meq Tab.Er PO 04/30/21 18:18 40 meq ONETIME ONE Administration - Re-Assessments/Exams Free Text/Narrative Re-Assessment/Exam: 04/30/21 18:34 Chest CTA was obtained with her known history of PE on the right and worsening pain. This showed no new PE and the previous PE shows significant improvement. The patient has been on Eliquis and has been taking this as directed however she does not like being on the Eliquis. Troponin is negative her potassium is low we will give her 40 mEq now and I will send a prescription for some potassium. Graph had a long discussion with the patient about her PE in this pain she is experiencing. Patient seems to be a little more understanding of the whole situation. Departure - Departure Time of Disposition: 18:38 Disposition: Home, Self-Care 01 Clinical Impression: Chest wall pain Pulmonary embolism Qualifiers: Pulmonary embolism type: other Chronicity: acute Acute cor pulmonale presence: without acute cor pulmonale Qualified Code(s): I26.99 - Other pulmonary embolism without acute cor pulmonale - Discharge Information Prescriptions: Potassium Chloride [Klor-Con M20] 20 meq PO BID #5 tab.er Instructions: Chest Wall Pain, [id number] Referrals: Octavio Lim MD [Primary Care Provider] - Forms: ED Department Discharge Additional Instructions: Return to the emergency room with any questions problems or concerning symptoms. Follow-up with your regular physician this next week for recheck. Continue your Eliquis. Your potassium is low I sent a prescription for you to start tomorrow morning to the [facility] pharmacy up by [address] this up this evening before they close. Take 1 twice daily starting tomorrow morning. Start a magnesium supplement. Sepsis Event Note (ED) - Evaluation Sepsis Screening Result: No Definite Risk - Focused Exam Vital Signs: Vital Signs Temp Pulse Resp BP Pulse Ox 04/30/21 15:40 36.3 C 115 H 18 113/83 97 - My Orders Last 24 Hours: My Active Orders 04/30/21 16:18 UA RFX MADELINE AND CULT IF INDIC [URIN] Stat - Assessment/Plan Last 24 Hours: My Active Orders 04/30/21 16:18 UA RFX MADELINE AND CULT IF INDIC [URIN] Stat
--- NOTE | 2021-04-30 17:33 | CT ---
CT chest Technique: Multiple axial sections through the chest were obtained. Intravenous contrast was utilized. Study has been performed as a pulmonary angiogram protocol. Comparison: Prior CT chest study of 03/28/21. Findings: Pulmonary arteries are well opacified. Prior study showed multiple filling defects which have significantly improved on current study. No new areas of pulmonary emboli are seen. Diffuse fatty infiltration is seen within the liver. Prior cholecystectomy is noted. Thoracic aorta shows no aneurysm. No mediastinal adenopathy or hilar adenopathy is seen. Slight parenchymal density is seen within the right lung base which is smaller than on prior study. Small parenchymal density is seen within the left lung base which is stable. Lungs otherwise are clear. Bone window settings were reviewed which show no acute osseous finding. Slight deformity is noted to the posterior right third rib compatible with old fracture. Impression: 1. Previous pulmonary emboli show significant improvement on current study. No new pulmonary emboli are seen. 2. Improved density within the right lung base from prior CT study. Stable density within the left lung base. 3. Other incidental findings. Diagnostic code #2
[2021-04-30] MEDS ORDERED: Potassium Chloride 20 MEQ Tab.ER PO ONE (18:17)
[2021-04-30] MEDS ORDERED: Sodium Chloride 0.9% 10 ML Syringe FLUSH ONE (19:08)
[2021-04-30] MEDS ORDERED: Iopamidol 612 MG/ML 100 ML Bottle IVPUSH ONE (19:08)
== END 2021-04-30 18:52 | disposition home or self-care (01) ==
LOC: JD.ED 15:23
DX: I26.99 Other pulmonary embolism without acute cor pulmonale (principal); Z86.73 Personal history of transient ischemic attack (TIA), and cerebral infarction without residual deficits; Z79.01 Long term (current) use of anticoagulants
CPT/HCPCS: 36415; 71275; 80053; 83690; 84484; 85025; 85610; 85730; 99285; A9270; Q9967

== ENCOUNTER 2021-05-02 15:19 | Emergency (ER) | payer OTHER ==
[2021-05-02 16:05] VITALS: BP 117/79; PULSE 103
[2021-05-02] MEDS ORDERED: Sodium Chloride 0.9% 10 ML Syringe FLUSH PRN (16:24)
[2021-05-02] MEDS ORDERED: Alum Hydrox/Mag Hydrox/Simeth 30 ML, Lidocaine 2% 15 ML PO ONE ×2 (16:25)
--- NOTE | 2021-05-02 16:29 | EDM.PDOC ---
ED HPI GENERAL MEDICAL PROBLEM - General Chief Complaint: Chest Pain Stated Complaint: CHEST PAIN Time Seen by Provider: 05/02/21 15:51 Source of Information: Reports: Patient History Limitations: Reports: No Limitations - History of Present Illness INITIAL COMMENTS - FREE TEXT/NARRATIVE: 50-year-old female presents to the emergency department with complaints of right-sided chest discomfort. Of note, patient was diagnosed with right-sided PE is currently taking Eliquis for approximately the past week and a half. She states she has been taking her Eliquis as prescribed. She was seen in this emergency department with similar complaints 2 days ago and had a cardiac work- up as well as a CT of the lungs. Cardiac work-up was negative.CT of the chest radiologist impression: 1. Previous pulmonary emboli show significant improvement on current study. No new pulmonary emboli are seen. 2. Improvement density within the right lung base from prior CT study. Stable density within the left lung base. Patient states that she had bad chest pain noted this morning and broke out in a cold sweat stating she did not feel well. She states she does have a history in the past of significant alcohol use however she states still drinks 3 times per week. She also states she smokes a pack a day for the past 25 years. She states that the chest discomfort is a burning kind of pain. She states it goes all the way up into her throat and it is difficult to swallow. She denies any history of gastritis in the past. She denies any history of needing to take any Tums or antacids. She states she has lost approximately 15 pounds in the past couple of months as she has not been able to eat much of anything other than yogurt and soft foods. Chest Pain Score (Numeric/FACES): 7 - Related Data Allergies Allergy/AdvReac Type Severity Reaction Status Date / Time No Known Allergies Allergy Verified 04/30/21 15:46 Home Meds: Home Meds Apixaban [Eliquis] 5 mg PO BID #60 tablet 03/28/21 [Rx] Potassium Chloride [Klor-Con M20] 20 meq PO BID #5 tab.er 04/30/21 [Rx] Ondansetron [Zofran ODT] 4 mg PO TID PRN 05/02/21 [History] Past Medical History - Past Health History Medical/Surgical History: Denies Medical/Surgical History HEENT History: Reports: Impaired Vision, Otitis Media Other HEENT History: wears eyeglasses Cardiovascular History: Reports: Blood Clots/VTE/DVT, Other (See Below) Other Cardiovascular History: failed stress test [employer] History: Reports: Musculoskeletal History: Reports: Other (See Below) Other Musculoskeletal History: left heel spur removed Neurological History: Reports: CVA Psychiatric History: Reports: Addiction, Anxiety - Infectious Disease History Infectious Disease History: Reports: None - Past Surgical History GI Surgical History: Reports: Appendectomy, Cholecystectomy Female Surgical History: Reports: Tubal Ligation, Other (See Below) Other Female Surgeries/Procedures: cysts removed from uterus Musculoskeletal Surgical History: Reports: Other (See Below) Social & Family History - Family History Family Medical History: No Pertinent Family History - Tobacco Use Tobacco Use Status *Q: Current Every Day Tobacco User Years of Tobacco use: 25 Packs/Tins Daily: 0.5 - Caffeine Use Caffeine Use: Reports: None - Recreational Drug Use Recreational Drug Use: No - Living Situation & Occupation Living situation: Reports: , with Spouse Occupation: Employed ED ROS GENERAL - Review of Systems Review Of Systems: Comprehensive ROS is negative, except as noted in HPI. ED EXAM, GENERAL - Physical Exam Exam: See Below Exam Limited By: No Limitations General Appearance: Alert, WD/WN, No Apparent Distress Ears: Normal External Exam, Hearing Grossly Normal Nose: Normal Inspection Throat/Mouth: Normal Inspection, Normal Lips, Normal Voice, No Airway Compromise Head: Atraumatic Neck: Normal Inspection, Supple Respiratory/Chest: No Respiratory Distress, Lungs Clear, Normal Breath Sounds, No Accessory Muscle Use, Chest Non-Tender Cardiovascular: Normal Peripheral Pulses, Regular Rate, Rhythm, No Edema, No Murmur Peripheral Pulses: 2+: Radial (L), Radial (R) GI/Abdominal: Normal Bowel Sounds, Soft, No Distention, Tender (Tenderness noted over epigastric area) (Female) Exam: Deferred Rectal (Female) Exam: Deferred Back Exam: Normal Inspection Extremities: Normal Inspection, Normal Range of Motion, Non-Tender, No Pedal Edema, Normal Capillary Refill Neurological: Alert, Oriented, Normal Cognition Psychiatric: Normal Affect, Normal Mood Skin Exam: Warm, Dry, Intact, Normal Color, No Rash Lymphatic: No Adenopathy #1 Interpretation EKG Date: 05/02/21 Time: 16:06 Rhythm: NSR Rate (Beats/Min): 106 [place]: Normal P-Wave: Present QRS: Normal ST-T: Normal QT: Normal EKG Interpretation Comments: Per Dr. Raymundo interpretation: Sinus tachycardia at 106 bpm; probable left atrial enlargement; anteroseptal infarct, age undetermined Course - Vital Signs Text/Narrative:: As stated above, patient presents with right-sided chest discomfort with a known history of PE on the right side however it appears to be resolving on most recent CT scan. Physical exam reveals an ill-appearing female. Lung sounds are clear to auscultations. She is hemodynamically stable. Noted pain with palpation to the chest. She also has significant discomfort when palpating the epigastric area. Suspect patient may have gastritis however will do a full cardiac work-up to include chest x-ray, EKG, CBC, CMP, magnesium and troponin level. We will also give the patient a GI cocktail to see if this provides some relief. Last Recorded V/S: Last Vital Signs Temp 96.4 F L 05/02/21 16:00 Pulse 103 H 05/02/21 16:00 Resp 15 05/02/21 16:00 BP 117/79 05/02/21 16:00 Pulse Ox 96 05/02/21 16:00 - Orders/Labs/Meds Orders: Active Orders 24 hr Category Date Time Status Chest 1V Frontal [CR] Stat Exams 05/02/21 16:24 Ordered CBC WITH AUTO DIFF [HEME] Stat Lab 05/02/21 16:24 Ordered COMPREHENSIVE METABOLIC PN,CMP [CHEM] Stat Lab 05/02/21 16:24 Ordered MAGNESIUM [CHEM] Stat Lab 05/02/21 16:24 Ordered TROPONIN I [CHEM] Stat Lab 05/02/21 16:24 Ordered Sodium Chloride 0.9% [Saline Flush] Med 05/02/21 16:24 Active 10 ml FLUSH ASDIRECTED PRN Saline Lock Insert [OM.PC] Stat Oth 05/02/21 16:24 Ordered EKG 12 Lead [EK] Stat Ther 05/02/21 15:57 Ordered Medication Orders Sodium Chloride (Sodium Chloride 0.9% 10 Ml Syringe) 10 ml FLUSH ASDIRECTED PRN PRN Reason: Keep Vein Open Meds: Medications Generic Name Dose Route Start Last Admin Trade Name Freq PRN Reason Stop Dose Admin Sodium Chloride 10 ml 05/02/21 16:24 Sodium Chloride 0.9% 10 Ml Syringe FLUSH ASDIRECTED PRN Keep Vein Open Discontinued Medications Generic Name Dose Route Start Last Admin Trade Name Nola PRN Reason Stop Dose Admin Al Hydroxide/Mg Hydroxide 30 0 ml 05/02/21 16:25 ml/ Lidocaine HCl 15 ml PO 05/02/21 16:26 ONETIME ONE - Re-Assessments/Exams Free Text/Narrative Re-Assessment/Exam: 05/02/21 16:38 Nursing staff notifies me that the patient has left the ER. Departure - Departure Time of Disposition: 16:38 Disposition: Eloped 07 Condition: Fair Clinical Impression: Atypical chest pain Referrals: Octavio Lim MD [Primary Care Provider] - Forms: ED Department Discharge Sepsis Event Note (ED) - Focused Exam Vital Signs: Vital Signs Temp Pulse Resp BP Pulse Ox 05/02/21 16:00 96.4 F L 103 H 15 117/79 96 - My Orders Last 24 Hours: My Active Orders 05/02/21 15:57 EKG 12 Lead [EK] Stat 05/02/21 16:24 Chest 1V Frontal [CR] Stat CBC WITH AUTO DIFF [HEME] Stat COMPREHENSIVE METABOLIC PN,CMP [CHEM] Stat MAGNESIUM [CHEM] Stat TROPONIN I [CHEM] Stat Sodium Chloride 0.9% [Saline Flush] 10 ml FLUSH ASDIRECTED PRN Saline Lock Insert [OM.PC] Stat - Assessment/Plan Last 24 Hours: My Active Orders 05/02/21 15:57 EKG 12 Lead [EK] Stat 05/02/21 16:24 Chest 1V Frontal [CR] Stat CBC WITH AUTO DIFF [HEME] Stat COMPREHENSIVE METABOLIC PN,CMP [CHEM] Stat MAGNESIUM [CHEM] Stat TROPONIN I [CHEM] Stat Sodium Chloride 0.9% [Saline Flush] 10 ml FLUSH ASDIRECTED PRN Saline Lock Insert [OM.PC] Stat
== END 2021-05-02 16:40 | disposition left against medical advice (07) ==
LOC: JD.ED 15:19
DX: R07.89 Other chest pain (principal); Z72.0 Tobacco use; Z86.718 Personal history of other venous thrombosis and embolism; Z79.01 Long term (current) use of anticoagulants; Z79.899 Other long term (current) drug therapy
CPT/HCPCS: 93005; 99284-25

== ENCOUNTER 2021-05-11 10:41 | Emergency (ER) | payer SELFPAY ==
[2021-05-11] MEDS ORDERED: Alum Hydrox/Mag Hydrox/Simeth 30 ML, Lidocaine 2% 15 ML PO ONE ×2 (11:22)
--- NOTE | 2021-05-11 11:41 | EDM.PDOC ---
ED HPI GENERAL MEDICAL PROBLEM - General Chief Complaint: Respiratory Problem Stated Complaint: chest pain Time Seen by Provider: 05/11/21 11:09 Source of Information: Reports: Patient, RN Notes Reviewed History Limitations: Reports: No Limitations - History of Present Illness INITIAL COMMENTS - FREE TEXT/NARRATIVE: Patient is a 50-year-old female who presents to the ER for the evaluation of her chest pain. States that this is been going on for some time now. States that this is about her third ER visit for her chest discomfort. Patient was found to have a pulmonary embolus and has been placed on Eliquis and she states that she is taking that medication as prescribed. Patient does admit to drinking alcohol today, and does also admit that she does drink pretty much daily. She complains about some burning type throat pain, when she swallows sometimes even water. She does not take any sort of medication for any sort of reflux or acid suppression in her stomach. States that the pain does not go anywhere like into her back, or down her arms. States that she does have some generalized abdominal pain as well. Not having any fevers or chills, cough or shortness of breath or any sort of nausea/vomiting/diarrhea. Patient did not take anything for the pain. Bilateral Chest Pain Score (Numeric/FACES): 7 - Related Data Allergies Allergy/AdvReac Type Severity Reaction Status Date / Time No Known Allergies Allergy Verified 05/11/21 10:58 Home Meds: Home Meds Apixaban [Eliquis] 5 mg PO BID #60 tablet 03/28/21 [Rx] Ondansetron [Zofran ODT] 4 mg PO TID PRN 05/02/21 [History] Past Medical History HEENT History: Reports: Impaired Vision, Otitis Media Other HEENT History: wears eyeglasses Cardiovascular History: Reports: Blood Clots/VTE/DVT, Other (See Below) Other Cardiovascular History: failed stress test. 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: Musculoskeletal History: Reports: Other (See Below) Other Musculoskeletal History: left heel spur removed Neurological History: Reports: CVA Psychiatric History: Reports: Addiction, Anxiety Other Psychiatric History: ETOH Abuse - Past Surgical History GI Surgical History: Reports: Appendectomy, Cholecystectomy Female Surgical History: Reports: Tubal Ligation, Other (See Below) Other Female Surgeries/Procedures: cysts removed from uterus Social & Family History - Family History Family Medical History: No Pertinent Family History - Tobacco Use Tobacco Use Status *Q: Current Every Day Tobacco User Years of Tobacco use: 30 Packs/Tins Daily: 0.5 - Caffeine Use Caffeine Use: Reports: None - Alcohol Use Days Per Week of Alcohol Use: 7 Number of Drinks Per Day: 5 Total Drinks Per Week: 35 Date of Last Drink: 05/11/21 Time of Last Drink: 10:00 - Recreational Drug Use Recreational Drug Use: No - Living Situation & Occupation Living situation: Reports: , with Spouse Occupation: Employed ED ROS GENERAL - Review of Systems Review Of Systems: Comprehensive ROS is negative, except as noted in HPI. ED EXAM, GENERAL - Physical Exam Exam: See Below Exam Limited By: No Limitations General Appearance: Alert, WD/WN, No Apparent Distress Throat/Mouth: Normal Inspection, Normal Lips, Normal Teeth, Normal Gums, Normal Oropharynx, Normal Voice, No Airway Compromise Respiratory/Chest: No Respiratory Distress, Lungs Clear, Normal Breath Sounds, No Accessory Muscle Use, Other (bilateral chest discomfort with palpation.) Cardiovascular: Normal Peripheral Pulses, Regular Rate, Rhythm, No Edema Peripheral Pulses: 2+: Radial (L), Radial (R) Extremities: Normal Inspection, Normal Capillary Refill Neurological: Alert, Oriented, Normal Cognition, No Motor/Sensory Deficits Psychiatric: Normal Affect, Normal Mood Skin Exam: Warm, Dry, Intact, Normal Color, No Rash #1 Interpretation EKG Date: 05/11/21 Time: 11:40 Rhythm: NSR Rate (Beats/Min): 98 [place]: Normal P-Wave: Present QRS: Normal ST-T: Normal QT: Normal Comparison: No Change (from 05/02/21) EKG Interpretation Comments: No obvious ischemia or acute ST changes noted, reviewed by myself and Dr. Hodge. He did appreciate some Q waves in V1 and V2, consider old anteroseptal ME. Course - Vital Signs Last Recorded V/S: Last Vital Signs Temp 97.3 F 05/11/21 11:00 Pulse 107 H 05/11/21 11:00 Resp 20 05/11/21 11:00 BP 128/91 H 05/11/21 11:00 Pulse Ox 98 05/11/21 11:00 - Orders/Labs/Meds Orders: Active Orders 24 hr Category Date Time Status CBC WITH AUTO DIFF [HEME] Stat Lab 05/11/21 11:22 Ordered INR,PT,PROTHROMBIN TIME [COAG] Stat Lab 05/11/21 11:22 Ordered PTT,PARTIAL THROMBOPLSTIN TIME [COAG] Stat Lab 05/11/21 11:22 Ordered Labs: Laboratory Tests 05/11/21 05/11/21 Range/Units 12:02 12:02 WBC 4.88 (3.98-10.04) K/mm3 RBC 4.00 (3.98-5.22) M/mm3 Hgb 15.4 (11.2-15.7) gm/dl Hct 44.2 (34.1-44.9) % MCV 110.5 H (79.4-94.8) fl MCH 38.5 H (25.6-32.2) pg MCHC 34.8 (32.2-35.5) g/dl RDW Std Deviation 56.2 H (36.4-46.3) fL Plt Count 217 (182-369) K/mm3 MPV 9.6 (9.4-12.3) fl Neut % (Auto) 50.1 (34.0-71.1) % Lymph % (Auto) 34.4 (19.3-51.7) % [place] % (Auto) 14.5 H (4.7-12.5) % Eos % (Auto) 0.6 L (0.7-5.8) Baso % (Auto) 0.4 (0.1-1.2) % Neut # (Auto) 2.44 (1.56-6.13) K/mm3 Lymph # (Auto) 1.68 (1.18-3.74) K/mm3 [place] # (Auto) 0.71 H (0.24-0.36) K/mm3 Eos # (Auto) 0.03 L (0.04-0.36) K/mm3 Baso # (Auto) 0.02 (0.01-0.08) K/mm3 Sodium 145 (136-145) mEq/L Potassium 3.7 (3.5-5.1) mEq/L Chloride 106 (98-107) mEq/L Carbon Dioxide 27 (21-32) mEq/L Anion Gap 15.7 H (5-15) BUN 3 L (7-18) mg/dL Creatinine 0.4 L (0.55-1.02) mg/dL Est Cr Clr Drug Dosing 165.96 mL/min Estimated GFR (MDRD) > 60 (>60) mL/min BUN/Creatinine Ratio 7.5 L (14-18) Glucose 83 (70-99) mg/dL Calcium 8.5 (8.5-10.1) mg/dL Magnesium 1.8 (1.8-2.4) mg/dL Total Bilirubin 0.5 (0.2-1.0) mg/dL AST 82 H (15-37) U/L ALT 52 (14-59) U/L Alkaline Phosphatase 75 (46-116) U/L Troponin I < 0.017 (0.00-0.056) ng/mL Total Protein 6.2 L (6.4-8.2) g/dl Albumin 3.0 L (3.4-5.0) g/dl Globulin 3.2 gm/dL Albumin/Globulin Ratio 0.9 L (1-2) Meds: Medications Discontinued Medications Generic Name Dose Route Start Last Admin Trade Name Freq PRN Reason Stop Dose Admin Al Hydroxide/Mg Hydroxide 30 0 ml 05/11/21 11:22 05/11/21 11:35 ml/ Lidocaine HCl 15 ml PO 05/11/21 11:23 45 ml ONETIME ONE Administration Famotidine 40 mg 05/11/21 13:17 Famotidine 20 Mg Tab PO 05/11/21 13:18 ONETIME ONE - Re-Assessments/Exams Free Text/Narrative Re-Assessment/Exam: 05/11/21 11:40 Patient presents to the ER for her chest pain. I do highly suspect that this is caused from gastritis or reflux. We will go ahead and get an EKG, troponin, some basic labs for initial evaluation. We will try a GI cocktail with her to see if this helps a little bit. I will try to recommend that she take a medication like omeprazole to see if this helps relieve some of the symptoms. 05/11/21 13:17 Labs are little bit delayed today, CBC is unremarkable. Patient states she did get some relief with a GI cocktail. This is reassuring at this time and would suggest more of a gastritis/reflux in nature. We will have her try to start some outpatient PPI therapy. 05/11/21 13:26 Metabolic panel is unremarkable. Troponin is undetectably low. Again says she did get some relief with a GI cocktail we will treat her for gastritis/reflux in nature and have her follow-up with a primary care provider for possible endoscopy. Patient was pretty adverse to having to be on any sort of medications but I will stressed the fact that this will likely help the chest pain go away. Departure - Departure Time of Disposition: 13:27 Disposition: Home, Self-Care 01 Condition: Good Clinical Impression: Reflux gastritis Gastritis Qualifiers: Gastritis type: alcoholic Chronicity: acute Gastritis bleeding: without bleeding Qualified Code(s): K29.20 - Alcoholic gastritis without bleeding - Discharge Information *PRESCRIPTION DRUG MONITORING PROGRAM REVIEWED*: No *COPY OF PRESCRIPTION DRUG MONITORING REPORT IN PATIENT RITA: No Instructions: Gastritis, Adult, [id number] Referrals: Octavio Lim MD [Primary Care Provider] - Forms: ED Department Discharge Additional Instructions: You were evaluated in the ER today for your ongoing chest pain. Your EKG, and troponin, which is a lab to evaluate any sort of heart damage, were unremarkable at today's visit or undetectably low. You are not suffering from a heart attack at today's visit. All other labs were also within normal limits or unremarkable. Your chest pain/discomfort is most likely due to acid reflux/gastritis which is inflammation of your stomach lining. I would strongly recommend that you use a medication like Pepcid (famotidine) to suppress acid in your stomach over the next 3 days, and that you also take a medication like omeprazole ( Prilosec ) to further suppress acid in your stomach. These medications can be obtained [id number] at any [facility] or other local pharmacy. Please note omeprazole can take at least 72 hours to start taking effect, this is why I suggest that use Pepcid in the meantime. You may also obtain some Maalox, which will coat the lining of your stomach to help further provide some relief of your abdominal/chest discomfort. I would recommend you follow-up with your primary care provider Dr. Ivy for possible referral for upper endoscopy to make sure you do not have an ulcer in your stomach that would be causing some of your issues. Sometimes intake of alcohol can aggravate gastritis or reflux. If at all possible I would recommend that you try to limit the amount of alcohol that you drink, to see if also this can help relieve some of your discomfort. Foods like dark chocolate and coffee sometimes can cause issues with this as well. Do not hesitate to return to the ER at any time if symptoms change or worsen. Thank you for allowing and choosing us to be involved in your healthcare needs. Sepsis Event Note (ED) - Evaluation Sepsis Screening Result: No Definite Risk - Focused Exam Vital Signs: Vital Signs Temp Pulse Resp BP Pulse Ox 05/11/21 11:00 97.3 F 107 H 20 128/91 H 98 - My Orders Last 24 Hours: My Active Orders 05/11/21 11:22 CBC WITH AUTO DIFF [HEME] Stat INR,PT,PROTHROMBIN TIME [COAG] Stat PTT,PARTIAL THROMBOPLSTIN TIME [COAG] Stat - Assessment/Plan Last 24 Hours: My Active Orders 05/11/21 11:22 CBC WITH AUTO DIFF [HEME] Stat INR,PT,PROTHROMBIN TIME [COAG] Stat PTT,PARTIAL THROMBOPLSTIN TIME [COAG] Stat
[2021-05-11] MEDS ORDERED: Famotidine 20 MG Tab PO ONE (13:17)
[2021-05-11 13:49] VITALS: BP 110/81; PULSE 99
== END 2021-05-11 13:46 | disposition home or self-care (01) ==
LOC: JD.ED 10:41
DX: K29.20 Alcoholic gastritis without bleeding (principal); K29.60 Other gastritis without bleeding; Z79.01 Long term (current) use of anticoagulants; Z86.718 Personal history of other venous thrombosis and embolism; Z72.0 Tobacco use
CPT/HCPCS: 36415; 80053; 83735; 84484; 85025; 85610; 85730; 93005; 99285; A9270

== ENCOUNTER 2021-05-20 11:24 | Emergency (ER) | payer OTHER ==
[2021-05-20 11:36] VITALS: BP 120/87; PULSE 93
[2021-05-20] MEDS ORDERED: Alum Hydrox/Mag Hydrox/Simeth 30 ML, Lidocaine 2% 15 ML PO ONE ×2 (11:57)
--- NOTE | 2021-05-20 12:11 | EDM.PDOC ---
ED HPI GENERAL MEDICAL PROBLEM - General Chief Complaint: Chest Pain Stated Complaint: CHEST PAIN Time Seen by Provider: 05/20/21 11:34 Source of Information: Reports: Patient, Old Records, RN Notes Reviewed History Limitations: Reports: No Limitations - History of Present Illness INITIAL COMMENTS - FREE TEXT/NARRATIVE: Patient is a 50-year-old female who presents to the ER for evaluation of her chest discomfort. States that this is quite an intense pressure and she feels like she has concrete on her chest. Has been seen in this ER for the same type of complaint. States that it does not seem to be better or worse. Does not seem to be radiating anywhere. Patient states she is still taking her Eliquis as prescribed. And again she does state that she does not like taking medications, so she is trying to do her best. No fevers, no chills, no cough, no shortness of breath, or any other worsening sick-like symptoms. She did not take anything at home for the chest discomfort. Patient has been evaluated multiple times in this ER, and is thought to have some sort of gastritis or reflux. Last provider that saw her was myself and I did tell her to start taking a medication like omeprazole. Still unclear if she is taking this at home. Middle Chest Pain Score (Numeric/FACES): 7 - Related Data Allergies Allergy/AdvReac Type Severity Reaction Status Date / Time No Known Allergies Allergy Verified 05/20/21 11:36 Home Meds: Home Meds Apixaban [Eliquis] 5 mg PO BID #60 tablet 03/28/21 [Rx] Ondansetron [Zofran ODT] 4 mg PO TID PRN 05/02/21 [History] Past Medical History HEENT History: Reports: Impaired Vision, Otitis Media Other HEENT History: wears eyeglasses Cardiovascular History: Reports: Blood Clots/VTE/DVT, Other (See Below) Other Cardiovascular History: failed stress test. 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: Musculoskeletal History: Reports: Other (See Below) Other Musculoskeletal History: left heel spur removed Neurological History: Reports: CVA Psychiatric History: Reports: Addiction, Anxiety Other Psychiatric History: ETOH Abuse - Infectious Disease History Infectious Disease History: Reports: None - Past Surgical History GI Surgical History: Reports: Appendectomy, Cholecystectomy Female Surgical History: Reports: Tubal Ligation, Other (See Below) Other Female Surgeries/Procedures: cysts removed from uterus Musculoskeletal Surgical History: Reports: Other (See Below) Social & Family History - Family History Family Medical History: No Pertinent Family History - Tobacco Use Tobacco Use Status *Q: Current Every Day Tobacco User Years of Tobacco use: 30 Packs/Tins Daily: 0.5 - Caffeine Use Caffeine Use: Reports: None - Recreational Drug Use Recreational Drug Use: No - Living Situation & Occupation Living situation: Reports: , with Spouse Occupation: Employed ED ROS GENERAL - Review of Systems Review Of Systems: Comprehensive ROS is negative, except as noted in HPI. ED EXAM, GENERAL - Physical Exam Exam: See Below Exam Limited By: No Limitations General Appearance: Alert, WD/WN, No Apparent Distress Respiratory/Chest: No Respiratory Distress, Lungs Clear, Normal Breath Sounds, No Accessory Muscle Use, Chest Non-Tender Cardiovascular: Normal Peripheral Pulses, Regular Rate, Rhythm, No Edema Peripheral Pulses: 2+: Radial (L), Radial (R) Extremities: Normal Inspection, Normal Capillary Refill Neurological: Alert, Oriented, Normal Cognition, No Motor/Sensory Deficits Psychiatric: Normal Affect, Normal Mood Skin Exam: Warm, Dry, Intact, Normal Color, No Rash #1 Interpretation EKG Date: 05/20/21 Time: 11:32 Rhythm: NSR Rate (Beats/Min): 91 [place]: Normal P-Wave: Present QRS: Normal ST-T: Normal QT: Normal Comparison: No Change EKG Interpretation Comments: No obvious ischemia or acute ST changes noted, reviewed by myself and Dr. Tarango. Course - Vital Signs Last Recorded V/S: Last Vital Signs Temp 96 F L 05/20/21 11:33 Pulse 93 05/20/21 11:33 Resp 16 05/20/21 11:33 BP 120/87 05/20/21 11:33 Pulse Ox 98 05/20/21 11:33 - Orders/Labs/Meds Labs: Laboratory Tests 05/20/21 05/20/21 05/20/21 Range/Units 12:13 12:13 12:13 WBC 4.86 (3.98-10.04) K/mm3 RBC 3.88 L (3.98-5.22) M/mm3 Hgb 14.8 (11.2-15.7) gm/dl Hct 42.7 (34.1-44.9) % MCV 110.1 H (79.4-94.8) fl MCH 38.1 H (25.6-32.2) pg MCHC 34.7 (32.2-35.5) g/dl RDW Std Deviation 54.8 H (36.4-46.3) fL Plt Count 180 L (182-369) K/mm3 MPV 9.2 L (9.4-12.3) fl Neut % (Auto) 41.8 (34.0-71.1) % Lymph % (Auto) 43.2 (19.3-51.7) % [place] % (Auto) 13.4 H (4.7-12.5) % Eos % (Auto) 1.2 (0.7-5.8) Baso % (Auto) 0.2 (0.1-1.2) % Neut # (Auto) 2.03 (1.56-6.13) K/mm3 Lymph # (Auto) 2.10 (1.18-3.74) K/mm3 [place] # (Auto) 0.65 H (0.24-0.36) K/mm3 Eos # (Auto) 0.06 (0.04-0.36) K/mm3 Baso # (Auto) 0.01 (0.01-0.08) K/mm3 Manual Slide Review Abnormal smear PT 11.3 (9.7-12.0) SECONDS INR 1.02 APTT 29.3 (21.7-31.4) SECONDS Sodium 141 (136-145) mEq/L Potassium 3.6 (3.5-5.1) mEq/L Chloride 102 (98-107) mEq/L Carbon Dioxide 29 (21-32) mEq/L Anion Gap 13.6 (5-15) BUN 4 L (7-18) mg/dL Creatinine 0.4 L (0.55-1.02) mg/dL Est Cr Clr Drug Dosing 136.09 mL/min Estimated GFR (MDRD) > 60 (>60) mL/min BUN/Creatinine Ratio 10.0 L (14-18) Glucose 89 (70-99) mg/dL Calcium 8.1 L (8.5-10.1) mg/dL Magnesium 1.7 L (1.8-2.4) mg/dL Total Bilirubin 0.5 (0.2-1.0) mg/dL AST 125 H (15-37) U/L ALT 59 (14-59) U/L Alkaline Phosphatase 81 (46-116) U/L Troponin I < 0.017 (0.00-0.056) ng/mL Total Protein 6.5 (6.4-8.2) g/dl Albumin 3.0 L (3.4-5.0) g/dl Globulin 3.5 gm/dL Albumin/Globulin Ratio 0.9 L (1-2) Meds: Medications Discontinued Medications Generic Name Dose Route Start Last Admin Trade Name Freq PRN Reason Stop Dose Admin Al Hydroxide/Mg Hydroxide 30 0 ml 05/20/21 11:57 05/20/21 12:12 ml/ Lidocaine HCl 15 ml PO 05/20/21 11:58 45 ml ONETIME ONE Administration - Re-Assessments/Exams Free Text/Narrative Re-Assessment/Exam: 05/20/21 12:15 Patient presents to the ER for evaluation of her chest discomfort. We will go ahead and get some repeat labs and a troponin. EKG done at the time of triage was within normal limits. Due to the patient having ongoing pain, and a history of PE I will offer to repeat a CT of her chest as it has been a while to make sure that the PE is resolving itself versus worsening. 05/20/21 13:22 Patient labs are all unremarkable. Troponin undetectably low. I did go in and speak with the patient, states that she still having some chest pressure but will take some Tylenol to see if this helps at home. States that she is to follow-up with her doctor sometime in the next week for ongoing management. Departure - Departure Time of Disposition: 13:22 Disposition: Home, Self-Care 01 Condition: Good Clinical Impression: Left chest pressure Instructions: Nonspecific Chest Pain, Adult, [id number] Referrals: Octavio Lim MD [Primary Care Provider] - Forms: ED Department Discharge Additional Instructions: You were evaluated in the ER today for your chest pain. Your EKG, and laboratory evaluation are all unremarkable. The chest pain is thought likely due to musculoskeletal etiology. I would recommend that you use 500 mg Tylenol every 6 hours as needed for ongoing chest discomfort. You may also use a heat pack to the area to see if this helps. Do not exceed 4000 mg Tylenol in a 24-hour time span. It is very important that you continue taking your Eliquis medication for your ongoing PE diagnosis. Do not miss the dose of this. And discussed dosing with your primary care provider at your next visit. Please follow-up with your regular provider for ongoing management of your health. Please return to the ER at any time if symptoms change or worsen. Sepsis Event Note (ED) - Evaluation Sepsis Screening Result: No Definite Risk - Focused Exam Vital Signs: Vital Signs Temp Pulse Resp BP Pulse Ox 05/20/21 11:33 96 F L 93 16 120/87 98
== END 2021-05-20 13:37 | disposition home or self-care (01) ==
LOC: JD.ED 11:24
DX: R07.89 Other chest pain (principal); Z72.0 Tobacco use
CPT/HCPCS: 36415; 80053; 83735; 84484; 85025; 85610; 85730; 93005; 99285; A9270

== ENCOUNTER 2021-10-20 09:41 | Day surgery (SDC) | payer OTHER ==
[~2021-10-20 09:41] MED LIST: Lactated Ringers 1,000 ML IV SCH; Lidocaine 1%/Sod Bicarbonate in NS 8.4% 1 ML Syringe IDERM PRN; Sodium Chloride 0.9% 10 ML Syringe FLUSH PRN; Sodium Chloride 0.9% 10 ML Syringe FLUSH SCH
[2021-10-20] MEDS ORDERED: Propofol 200 MG/20 ML SDV ONE ×2 (10:45→11:34)
[2021-10-20] MEDS ORDERED: Lidocaine 1% 2 ML ONE (10:45)
[2021-10-20 13:23] VITALS: BP 109/75; PULSE 86
== END 2021-10-20 13:05 | disposition home or self-care (01) ==
LOC: JD.SDS 09:41
PROVIDERS: ATTEND Surgery
DX: D12.3 Benign neoplasm of transverse colon (principal); K31.89 Other diseases of stomach and duodenum; I78.1 Nevus, non-neoplastic; K44.9 Diaphragmatic hernia without obstruction or gangrene; K64.8 Other hemorrhoids; I10 Essential (primary) hypertension; E87.6 Hypokalemia; E03.9 Hypothyroidism, unspecified; F17.210 Nicotine dependence, cigarettes, uncomplicated; R64 Cachexia; Z79.01 Long term (current) use of anticoagulants; Z79.899 Other long term (current) drug therapy; Z79.890 Hormone replacement therapy; Z90.49 Acquired absence of other specified parts of digestive tract; Z98.890 Other specified postprocedural states; Z68.1 Body mass index [BMI] 19.9 or less, adult; Z86.73 Personal history of transient ischemic attack (TIA), and cerebral infarction without residual deficits
CPT/HCPCS: 43239; 45385; J2704; J7120; 00813

== ENCOUNTER 2021-12-22 14:16 | Emergency (ER) | payer OTHER ==
[2021-12-22 14:48] VITALS: BP 128/80; PULSE 107
[2021-12-22] MEDS ORDERED: Haloperidol Lactate 5 MG/ML SDV IVPUSH ONE (16:40)
[2021-12-22 18:19] LABS: CORONAVIRUS COVID-19 NAA NEGATIVE (NEGATIVE)
[2021-12-22] MEDS ORDERED: Amitriptyline 25 MG Tab PO ONE (21:39)
[2021-12-22] MEDS ORDERED: Apixaban 5 MG Tab PO ONE (21:39)
[2021-12-23] MEDS ORDERED: Levothyroxine 75 MCG Tab PO ONE (04:00)
== END 2021-12-23 05:20 ==
LOC: JD.ED 14:16
DX: F23 Brief psychotic disorder (principal); R94.6 Abnormal results of thyroid function studies; Z79.01 Long term (current) use of anticoagulants; Z90.49 Acquired absence of other specified parts of digestive tract; Z86.73 Personal history of transient ischemic attack (TIA), and cerebral infarction without residual deficits; Z20.822 Contact with and (suspected) exposure to COVID-19
CPT/HCPCS: 0240U; 36415; 70450; 80053; 80143; 80179; 80306; 80307; 81001; 84443; 85025; 96374; 99285; A9270; J1630

== ENCOUNTER 2022-01-19 11:40 | Emergency (ER) | payer MEDICARE, OTHER ==
[2022-01-19 12:01] VITALS: BP 128/93; PULSE 102
[2022-01-19] MEDS ORDERED: Haloperidol Lactate 5 MG/ML SDV IVPUSH ONE (12:33)
[2022-01-19] MEDS ORDERED: LORazepam 2 MG/ML SDV IVPUSH ONE (12:33)
[2022-01-19] MEDS ORDERED: Dextrose 5%-0.9% NaCl 1,000 ML IV SCH ×2 (12:45→14:30)
[2022-01-19 13:29] LABS: ESTIMATED GFR 107 mL/min (>60)
[2022-01-19] MEDS ORDERED: Magnesium Sulfate/Water 4 GM in Premix Bag 1 BAG IV ONE (14:27)
== END 2022-01-19 18:25 | disposition home or self-care (01) ==
LOC: JD.ED 11:40
DX: S32.120A Nondisplaced Zone II fracture of sacrum, initial encounter for closed fracture (principal); F10.950 Alcohol use, unspecified with alcohol-induced psychotic disorder with delusions; R29.6 Repeated falls; E46 Unspecified protein-calorie malnutrition; D64.9 Anemia, unspecified; E03.9 Hypothyroidism, unspecified; F17.210 Nicotine dependence, cigarettes, uncomplicated; Z79.899 Other long term (current) drug therapy; Z86.73 Personal history of transient ischemic attack (TIA), and cerebral infarction without residual deficits; W19.XXXA Unspecified fall, initial encounter
CPT/HCPCS: 36415; 70551; 70551-26; 72131; 72131-26; 73110-26-LT; 73110-LT; 80053; 80307; 82009; 82550; 82607; 83735; 84134; 84443; 85025; 85610; 86140; 93005; 96361; 96365; 96366; 96375; 99285-25; J1630; J2060; J3475; J7042

== ENCOUNTER 2022-01-26 07:16 | Emergency (ER) | payer MEDICARE ==
[2022-01-26 07:28] VITALS: BP 103/72; PULSE 94
== END 2022-01-26 09:15 | disposition home or self-care (01) ==
LOC: JD.ED 07:16
DX: R10.30 Lower abdominal pain, unspecified (principal); R60.0 Localized edema; R53.1 Weakness; S90.416A Abrasion, unspecified lesser toe(s), initial encounter; F17.210 Nicotine dependence, cigarettes, uncomplicated; Z86.73 Personal history of transient ischemic attack (TIA), and cerebral infarction without residual deficits; Z79.899 Other long term (current) drug therapy
CPT/HCPCS: 99284

== ENCOUNTER 2022-01-30 11:40 | Emergency (ER) | payer MEDICARE ==
[2022-01-30] MEDS ORDERED: Sodium Chloride 0.9% 10 ML Syringe FLUSH PRN (12:09)
[2022-01-30 12:18] VITALS: BP 123/66; PULSE 95
[2022-01-30 12:58] LABS: ESTIMATED GFR 112 mL/min (>60)
[2022-01-30 13:04] LABS: ACETAMINOPHEN 0 ug/mL (10-30)
[2022-01-30] MEDS ORDERED: Potassium Chloride 20 MEQ Tab.ER PO ONE (13:22)
== END 2022-01-30 17:00 | disposition home or self-care (01) ==
LOC: JD.ED 11:40
DX: R26.2 Difficulty in walking, not elsewhere classified (principal); F17.210 Nicotine dependence, cigarettes, uncomplicated; Z79.01 Long term (current) use of anticoagulants; Z79.899 Other long term (current) drug therapy; Z86.73 Personal history of transient ischemic attack (TIA), and cerebral infarction without residual deficits; Z20.822 Contact with and (suspected) exposure to COVID-19
CPT/HCPCS: 36415; 71045; 80053; 80143; 80179; 80307; 83735; 83880; 84443; 85025; 86140; 93005; 99284; A9270; U0002

== ENCOUNTER 2022-11-20 08:56 | Inpatient (IN) | payer MEDICARE ==
[2022-11-20 09:55] LABS: BASOPHILS ABSOLUTE AUTO 0.02 K/mm3 (0.01-0.08); BASOPHILS PERCENT AUTO 0.3 % (0.1-1.2); EOSINOPHILS PERCENT AUTO 1.4 (0.7-5.8); HEMATOCRIT 38.7 % (34.1-44.9); HEMOGLOBIN 13.4 gm/dl (11.2-15.7); IMMATURE GRAN ABSOLUTE AUTO 0.01 K/mm3 (0.00-0.10); IMMATURE GRAN PERCENT AUTO 0.1 % (<=1.0); LYMPHOCYTES ABSOLUTE AUTO 2.05 K/mm3 (1.18-3.74); MEAN CORPUSCULAR HEMOGLOBIN 31.5 pg (25.6-32.2); MEAN CORPUSCULAR HGB CONC 34.6 g/dl (32.2-35.5); MEAN CORPUSCULAR VOLUME 91.1 fl (79.4-94.8); MEAN PLATELET VOLUME 9.3 fl (9.4-12.3); MONOCYTES ABSOLUTE AUTO 0.54 K/mm3 (0.24-0.36); MONOCYTES PERCENT AUTO 7.6 % (4.7-12.5); NEUTROPHILS ABSOLUTE AUTO 4.36 K/mm3 (1.56-6.13); NEUTROPHILS PERCENT AUTO 61.6 % (34.0-71.1); PLATELET COUNT,PLT 259 K/mm3 (182-369); RED BLOOD CELL COUNT 4.25 M/mm3 (3.98-5.22); WHITE BLOOD CELL COUNT,WBC 7.08 K/mm3 (3.98-10.04)
[2022-11-20 10:25] LABS: ALBUMIN 3.6 g/dl (3.4-5.0); ANION GAP 13.7 (5-15); BILIRUBIN TOTAL 0.5 mg/dL (0.2-1.0); BUN/CREATININE RATIO 21.7 (14-18); CALCIUM 8.7 mg/dL (8.5-10.1); CREATININE 0.6 mg/dL (0.55-1.02); EST CRCL DRUG DOSING (CG) 90.07 mL/min; POTASSIUM,K 3.7 mEq/L (3.5-5.1); PROTEIN TOTAL,TP 7.4 g/dl (6.4-8.2)
[2022-11-20] MEDS ORDERED: Sodium Chloride 0.9% 10 ML Syringe FLUSH PRN (12:31)
[2022-11-20] MEDS ORDERED: Ketorolac 30 MG/ML SDV IVPUSH ONE (12:31)
[2022-11-20] MEDS ORDERED: Polyethylene Glycol 3350 Powder 17 GM Packet PO PRN (13:55)
[2022-11-20] MEDS ORDERED: Docusate Sodium 100 MG Cap PO PRN (13:55)
[2022-11-20 15:31] LABS: INR 0.97; PROTHROMBIN TIME 10.4 SECONDS (9.7-12.0)
[2022-11-20] MEDS: traMADol 50 MG Tab PO PRN (17:30)
[2022-11-20 18:06] LABS: BARBITURATE SCREEN,URINE NEGATIVE (CUTOFF=200); BENZODIAZEPINES SCREEN,URINE NEGATIVE (CUTOFF=150); BUPRENORPHINE SCREEN,URINE NEGATIVE (CUTOFF=10); METHADONE SCREEN, URINE NEGATIVE (CUTOFF=200); METHAMPHETAMINES SCREEN, URINE NEGATIVE (CUTOFF=500); OXYCODONE SCREEN,URINE NEGATIVE (CUT0FF=100); PROPOXYPHENE SCREEN,URINE NEGATIVE (CUTOFF=300); THC SCREEN,URINE 20 NG/ML NEGATIVE (CUTOFF=50)
[2022-11-20 18:07] LABS: AMPHETAMINES SCREEN, URINE NEGATIVE (CUTOFF=500)
[2022-11-20] MEDS ORDERED: Apixaban 5 MG Tab PO ONE (21:00)
[2022-11-20] MEDS ORDERED: Gabapentin 300 MG Cap PO ONE (21:11)
[2022-11-20] MEDS ORDERED: oxyCODONE 5 MG Tab PO PRN (21:12)
[2022-11-20] MEDS: Acetaminophen 325 MG Tab PO PRN (21:18)
[2022-11-21] MEDS: traMADol 50 MG Tab PO PRN ×4 (00:08→20:35)
[2022-11-21 05:22] LABS: BASOPHILS ABSOLUTE AUTO 0.01 K/mm3 (0.01-0.08); BASOPHILS PERCENT AUTO 0.1 % (0.1-1.2); EOSINOPHILS ABSOLUTE AUTO 0.17 K/mm3 (0.04-0.36); EOSINOPHILS PERCENT AUTO 2.3 (0.7-5.8); HEMATOCRIT 35.5 % (34.1-44.9); HEMOGLOBIN 11.9 gm/dl (11.2-15.7); IMMATURE GRAN ABSOLUTE AUTO 0.01 K/mm3 (0.00-0.10); IMMATURE GRAN PERCENT AUTO 0.1 % (<=1.0); LYMPHOCYTES ABSOLUTE AUTO 1.68 K/mm3 (1.18-3.74); LYMPHOCYTES PERCENT AUTO 23.2 % (19.3-51.7); MEAN CORPUSCULAR HEMOGLOBIN 30.6 pg (25.6-32.2); MEAN CORPUSCULAR HGB CONC 33.5 g/dl (32.2-35.5); MEAN CORPUSCULAR VOLUME 91.3 fl (79.4-94.8); MEAN PLATELET VOLUME 9.7 fl (9.4-12.3); MONOCYTES ABSOLUTE AUTO 0.62 K/mm3 (0.24-0.36); MONOCYTES PERCENT AUTO 8.6 % (4.7-12.5); NEUTROPHILS ABSOLUTE AUTO 4.76 K/mm3 (1.56-6.13); NEUTROPHILS PERCENT AUTO 65.7 % (34.0-71.1); PLATELET COUNT,PLT 225 K/mm3 (182-369); RED BLOOD CELL COUNT 3.89 M/mm3 (3.98-5.22); WHITE BLOOD CELL COUNT,WBC 7.25 K/mm3 (3.98-10.04)
[2022-11-21 05:43] LABS: ANION GAP 10.7 (5-15); BUN/CREATININE RATIO 28.3 (14-18); CALCIUM 8.7 mg/dL (8.5-10.1); CREATININE 0.6 mg/dL (0.55-1.02); EST CRCL DRUG DOSING (CG) 109.38 mL/min; MAGNESIUM 1.6 mg/dL (1.8-2.4); POTASSIUM,K 3.7 mEq/L (3.5-5.1)
[2022-11-21] MEDS: Levothyroxine 88 MCG Tab PO SCH (06:50)
[2022-11-21] MEDS: Folic Acid 1 MG Tab PO SCH (09:05)
[2022-11-21] MEDS: Gabapentin 300 MG Cap PO SCH ×3 (09:05→20:35)
[2022-11-21] MEDS: Thiamine 100 MG Tab PO SCH (09:05)
[2022-11-21] MEDS: Acetaminophen 325 MG Tab PO PRN ×2 (09:11→18:46)
[2022-11-22] MEDS: Acetaminophen 325 MG Tab PO PRN ×2 (00:37→05:06)
[2022-11-22] MEDS: traMADol 50 MG Tab PO PRN ×4 (03:16→21:04)
[2022-11-22] MEDS: Levothyroxine 88 MCG Tab PO SCH (05:05)
[2022-11-22 05:27] LABS: BASOPHILS ABSOLUTE AUTO 0.02 K/mm3 (0.01-0.08); BASOPHILS PERCENT AUTO 0.2 % (0.1-1.2); EOSINOPHILS ABSOLUTE AUTO 0.24 K/mm3 (0.04-0.36); HEMATOCRIT 37.2 % (34.1-44.9); HEMOGLOBIN 12.5 gm/dl (11.2-15.7); IMMATURE GRAN ABSOLUTE AUTO 0.02 K/mm3 (0.00-0.10); IMMATURE GRAN PERCENT AUTO 0.2 % (<=1.0); LYMPHOCYTES ABSOLUTE AUTO 2.01 K/mm3 (1.18-3.74); MEAN CORPUSCULAR HEMOGLOBIN 30.8 pg (25.6-32.2); MEAN CORPUSCULAR HGB CONC 33.6 g/dl (32.2-35.5); MEAN CORPUSCULAR VOLUME 91.6 fl (79.4-94.8); MEAN PLATELET VOLUME 9.5 fl (9.4-12.3); MONOCYTES ABSOLUTE AUTO 0.67 K/mm3 (0.24-0.36); MONOCYTES PERCENT AUTO 8.3 % (4.7-12.5); NEUTROPHILS ABSOLUTE AUTO 5.07 K/mm3 (1.56-6.13); NEUTROPHILS PERCENT AUTO 63.3 % (34.0-71.1); PLATELET COUNT,PLT 233 K/mm3 (182-369); RED BLOOD CELL COUNT 4.06 M/mm3 (3.98-5.22); WHITE BLOOD CELL COUNT,WBC 8.03 K/mm3 (3.98-10.04)
[2022-11-22 05:42] LABS: ANION GAP 8.9 (5-15); CALCIUM 8.7 mg/dL (8.5-10.1); CREATININE 0.5 mg/dL (0.55-1.02); EST CRCL DRUG DOSING (CG) 111.17 mL/min; MAGNESIUM 1.6 mg/dL (1.8-2.4); POTASSIUM,K 3.9 mEq/L (3.5-5.1)
[2022-11-22] MEDS: Gabapentin 300 MG Cap PO SCH ×3 (09:01→21:04)
[2022-11-22] MEDS: Thiamine 100 MG Tab PO SCH (09:01)
[2022-11-22] MEDS: Folic Acid 1 MG Tab PO SCH (09:01)
[2022-11-23] MEDS: Acetaminophen 325 MG Tab PO PRN (00:31)
[2022-11-23] MEDS: traMADol 50 MG Tab PO PRN (03:14)
[2022-11-23 05:19] LABS: BASOPHILS ABSOLUTE AUTO 0.01 K/mm3 (0.01-0.08); BASOPHILS PERCENT AUTO 0.1 % (0.1-1.2); EOSINOPHILS ABSOLUTE AUTO 0.33 K/mm3 (0.04-0.36); EOSINOPHILS PERCENT AUTO 4.6 (0.7-5.8); HEMATOCRIT 39.2 % (34.1-44.9); HEMOGLOBIN 13.2 gm/dl (11.2-15.7); IMMATURE GRAN ABSOLUTE AUTO 0.02 K/mm3 (0.00-0.10); IMMATURE GRAN PERCENT AUTO 0.3 % (<=1.0); LYMPHOCYTES ABSOLUTE AUTO 2.12 K/mm3 (1.18-3.74); LYMPHOCYTES PERCENT AUTO 29.3 % (19.3-51.7); MEAN CORPUSCULAR HEMOGLOBIN 31.1 pg (25.6-32.2); MEAN CORPUSCULAR HGB CONC 33.7 g/dl (32.2-35.5); MEAN CORPUSCULAR VOLUME 92.5 fl (79.4-94.8); MEAN PLATELET VOLUME 9.3 fl (9.4-12.3); MONOCYTES ABSOLUTE AUTO 0.59 K/mm3 (0.24-0.36); MONOCYTES PERCENT AUTO 8.2 % (4.7-12.5); NEUTROPHILS ABSOLUTE AUTO 4.16 K/mm3 (1.56-6.13); NEUTROPHILS PERCENT AUTO 57.5 % (34.0-71.1); PLATELET COUNT,PLT 239 K/mm3 (182-369); RED BLOOD CELL COUNT 4.24 M/mm3 (3.98-5.22); WHITE BLOOD CELL COUNT,WBC 7.23 K/mm3 (3.98-10.04)
[2022-11-23 05:47] LABS: ANION GAP 9.7 (5-15); BUN/CREATININE RATIO 25.7 (14-18); CALCIUM 9.1 mg/dL (8.5-10.1); CREATININE 0.7 mg/dL (0.55-1.02); EST CRCL DRUG DOSING (CG) 79.93 mL/min; MAGNESIUM 1.8 mg/dL (1.8-2.4); POTASSIUM,K 4.7 mEq/L (3.5-5.1)
[2022-11-23] MEDS: Levothyroxine 88 MCG Tab PO SCH (06:22)
[2022-11-23] MEDS ORDERED: Midazolam 1 MG/ML 2 ML SDV ONE ×2 (08:29→11:41)
[2022-11-23] MEDS ORDERED: Ondansetron 4 MG/2 ML SDV ONE (08:29)
[2022-11-23] MEDS ORDERED: Lidocaine 1% 2 ML ONE (08:29)
[2022-11-23] MEDS ORDERED: Propofol 200 MG/20 ML SDV ONE ×2 (08:29→11:48)
[2022-11-23] MEDS: Thiamine 100 MG Tab PO SCH (08:33)
[2022-11-23] MEDS: Gabapentin 300 MG Cap PO SCH (08:33)
[2022-11-23] MEDS: Folic Acid 1 MG Tab PO SCH (08:33)
[2022-11-23] MEDS ORDERED: Phenylephrine 1% 10 MG/ML SDV ONE (11:30)
[2022-11-23] MEDS ORDERED: ceFAZolin 2 GM Vial ONE (11:30)
[2022-11-23] MEDS ORDERED: Ondansetron 4 MG/2 ML SDV IVPUSH PRN (13:12)
[2022-11-23] MEDS ORDERED: HYDROmorphone 0.5 MG/0.5 ML Syringe IVPUSH PRN (13:12)
[2022-11-23] MEDS ORDERED: fentaNYL 100 MCG/2 ML SDV IVPUSH PRN (13:12)
[2022-11-23 15:27] VITALS: BP 103/69; PULSE 65
[2022-11-24] MEDS ORDERED: Apixaban 5 MG Tab PO SCH (09:00)
== END 2022-11-23 15:52 | disposition home or self-care (01) | DRG 481 ==
LOC: JD.ED 08:56 → JD.MS 13:30 → EEVIPCON 13:30
PROVIDERS: ADMIT Internal Medicine; ATTEND Internal Medicine
PROC: 0QS734Z Reposition Left Upper Femur with Internal Fixation Device, Percutaneous Approach (ICD-10-PCS; principal; 2022-11-20)
DX: S72.002A Fracture of unspecified part of neck of left femur, initial encounter for closed fracture (principal); G62.9 Polyneuropathy, unspecified; E03.9 Hypothyroidism, unspecified; R63.6 Underweight; F10.929 Alcohol use, unspecified with intoxication, unspecified; F10.120 Alcohol abuse with intoxication, uncomplicated; F41.9 Anxiety disorder, unspecified; Z95.2 Presence of prosthetic heart valve; D50.9 Iron deficiency anemia, unspecified; W18.30XA Fall on same level, unspecified, initial encounter; F17.210 Nicotine dependence, cigarettes, uncomplicated; Z86.711 Personal history of pulmonary embolism; Z68.1 Body mass index [BMI] 19.9 or less, adult; Z98.890 Other specified postprocedural states; Z79.01 Long term (current) use of anticoagulants; Z86.79 Personal history of other diseases of the circulatory system; Z79.899 Other long term (current) drug therapy; Z90.49 Acquired absence of other specified parts of digestive tract; Z79.890 Hormone replacement therapy; Z98.51 Tubal ligation status; Z56.0 Unemployment, unspecified; Z86.73 Personal history of transient ischemic attack (TIA), and cerebral infarction without residual deficits; Y92.89 Other specified places as the place of occurrence of the external cause
CPT/HCPCS: 01220; 36415; 73502-26-LT; 73502-LT; 73700-26-LT; 73700-LT; 76000; 76000-26; 80048; 80053; 80306; 80307; 83735; 83880; 84443; 84484; 85025; 85379; 85610; 85730; 86850; 86900; 86901; 93005; 93970; 93970-26; 96374; 97116-GP; 97162-GP; 99222; 99231; 99232; 99239; 99285-25; A9270-GY; C1713; J0690; J1885; J2250; J2370; J2405; J2704; J3490

== ENCOUNTER 2022-12-05 19:21 | Emergency (ER) | payer MEDICARE ==
[2022-12-05 20:25] VITALS: BP 143/84; PULSE 84
== END 2022-12-05 20:26 | disposition home or self-care (01) ==
LOC: JD.ED 19:21
DX: R60.0 Localized edema (principal); F10.229 Alcohol dependence with intoxication, unspecified; E03.9 Hypothyroidism, unspecified; F17.210 Nicotine dependence, cigarettes, uncomplicated; Z79.01 Long term (current) use of anticoagulants; Z86.718 Personal history of other venous thrombosis and embolism; Z79.899 Other long term (current) drug therapy; Z86.16 Personal history of COVID-19; Z86.711 Personal history of pulmonary embolism; W19.XXXA Unspecified fall, initial encounter; Y92.009 Unspecified place in unspecified non-institutional (private) residence as the place of occurrence of the external cause
CPT/HCPCS: 99284

== ENCOUNTER 2022-12-06 10:20 | Emergency (ER) | payer MEDICARE ==
[2022-12-06 12:07] LABS: INR 0.98; PROTHROMBIN TIME 10.5 SECONDS (9.7-12.0)
[2022-12-06 12:20] LABS: A/G RATIO 0.9 (1-2); ALANINE AMINOTRANSFERASE,ALT 25 U/L (14-59); ALKALINE PHOSPHATASE 95 U/L (46-116); ANION GAP 13.2 (5-15); ASPARTATE AMNIOTRANSFERASE,AST 27 U/L (15-37); BILIRUBIN TOTAL 0.3 mg/dL (0.2-1.0); BLOOD UREA NITROGEN,BUN 9 mg/dL (7-18); CALCIUM 8.6 mg/dL (8.5-10.1); CARBON DIOXIDE,CO2 28 mEq/L (21-32); CHLORIDE,CL 102 mEq/L (98-107); CREATININE 0.5 mg/dL (0.55-1.02); ESTIMATED GFR 112 mL/min (>60); ETHANOL BLOOD MEDICAL 0.03 gm% (0.00); GLUCOSE RANDOM 84 mg/dL (70-99); MAGNESIUM 1.8 mg/dL (1.8-2.4); POTASSIUM,K 4.2 mEq/L (3.5-5.1); PROTEIN TOTAL,TP 6.5 g/dl (6.4-8.2); SODIUM,NA 139 mEq/L (136-145); TROPONIN I HIGH SENSITIVITY 6 pg/mL (<=51); TSH 4.937 uIU/mL (0.358-3.74)
[2022-12-06] MEDS ORDERED: Acetaminophen/HYDROcodone 325-5 MG Tab PO ONE (15:39)
[2022-12-06 19:26] VITALS: BP 145/88; PULSE 65
== END 2022-12-06 17:10 | disposition home or self-care (01) ==
LOC: JD.ED 10:20
DX: G62.9 Polyneuropathy, unspecified (principal); G82.20 Paraplegia, unspecified; R60.0 Localized edema; E03.9 Hypothyroidism, unspecified; F17.210 Nicotine dependence, cigarettes, uncomplicated; Z86.711 Personal history of pulmonary embolism; Z79.899 Other long term (current) drug therapy; Z86.16 Personal history of COVID-19; Z79.01 Long term (current) use of anticoagulants
CPT/HCPCS: 36415; 71045; 71045-26; 73610-26-LT; 73610-LT; 80053; 80307; 83735; 83880; 84443; 84484; 85610; 85730; 93005; 93970; 93970-26; 99284

== ENCOUNTER 2022-12-16 20:13 | Emergency (ER) | payer MEDICARE ==
[2022-12-16 20:27] VITALS: BP 117/69; PULSE 112
== END 2022-12-16 21:00 | disposition left against medical advice (07) ==
LOC: JD.ED 20:13
DX: S80.212A Abrasion, left knee, initial encounter (principal); S80.211A Abrasion, right knee, initial encounter; F10.10 Alcohol abuse, uncomplicated; E03.9 Hypothyroidism, unspecified; Z79.01 Long term (current) use of anticoagulants; Z79.899 Other long term (current) drug therapy; Z86.16 Personal history of COVID-19
CPT/HCPCS: 99282; 99284

== ENCOUNTER 2022-12-31 21:17 | Emergency (ER) | payer MEDICARE ==
[2022-12-31 21:25] VITALS: BP 123/83; PULSE 116
== END 2023-01-01 00:38 | disposition home or self-care (01) ==
LOC: JD.ED 21:17
DX: F10.929 Alcohol use, unspecified with intoxication, unspecified (principal); E03.9 Hypothyroidism, unspecified; Z86.16 Personal history of COVID-19; Z79.899 Other long term (current) drug therapy; Z79.01 Long term (current) use of anticoagulants; W19.XXXA Unspecified fall, initial encounter; Y92.009 Unspecified place in unspecified non-institutional (private) residence as the place of occurrence of the external cause
CPT/HCPCS: 70450; 70450-26; 72125; 72125-26; 99283

== ENCOUNTER 2023-01-28 23:04 | Emergency (ER) | payer MEDICARE ==
[2023-01-29 00:01] LABS: BASOPHILS PERCENT AUTO 0.3 % (0.0-1.0); EOSINOPHILS ABSOLUTE AUTO 0.1 K/mm3 (0.0-0.4); EOSINOPHILS PERCENT AUTO 1.5 % (0.0-6.0); HEMATOCRIT 35.1 % (37.0-47.0); HEMOGLOBIN 12.3 gm/dl (12.0-16.0); IMMATURE GRAN ABSOLUTE AUTO 0.02 K/mm3 (0.00-0.05); IMMATURE GRAN PERCENT AUTO 0.5 % (0.0-0.4); LYMPHOCYTES PERCENT AUTO 49.4 % (24.0-44.0); MEAN CORPUSCULAR HEMOGLOBIN 34.3 pg (28.0-32.0); MEAN CORPUSCULAR VOLUME 97.8 fl (83.0-99.0); MONOCYTES ABSOLUTE AUTO 0.6 K/mm3 (0.0-0.8); NEUTROPHILS ABSOLUTE AUTO 1.3 K/mm3 (1.8-7.7); NEUTROPHILS PERCENT AUTO 33.3 % (41.0-71.0); PLATELET COUNT,PLT 145 K/mm3 (150-400); RED BLOOD CELL COUNT 3.59 M/mm3 (4.10-5.30); WHITE BLOOD CELL COUNT,WBC 3.99 K/mm3 (3.9-11.3)
[2023-01-29 00:37] LABS: ALBUMIN 3.4 g/dl (3.4-5.0); ANION GAP 14.6 (5-15); BILIRUBIN TOTAL 0.1 mg/dL (0.2-1.0); CALCIUM 8.3 mg/dL (8.5-10.1); CREATININE 0.4 mg/dL (0.55-1.02); EST CRCL DRUG DOSING (CG) 131.25 mL/min; ETHANOL BLOOD MEDICAL 0.48 gm% (0.00); POTASSIUM,K 3.6 mEq/L (3.5-5.1); PROTEIN TOTAL,TP 6.9 g/dl (6.4-8.2)
[2023-01-29 16:37] VITALS: BP 136/85; PULSE 86
== END 2023-01-29 13:10 | disposition home or self-care (01) ==
LOC: JD.ED 23:04
DX: G62.89 Other specified polyneuropathies (principal); F10.29 Alcohol dependence with unspecified alcohol-induced disorder; Z86.16 Personal history of COVID-19
CPT/HCPCS: 36415; 80053; 80307; 85025; 99284

== ENCOUNTER 2023-02-14 23:06 | Emergency (ER) | payer MEDICARE ==
[2023-02-14] MEDS ORDERED: Sodium Chloride 0.9% 10 ML Syringe FLUSH PRN (23:39)
[2023-02-14] MEDS ORDERED: Ondansetron 4 MG/2 ML SDV IVPUSH ONE (23:39)
[2023-02-14] MEDS ORDERED: Sodium Chloride 0.9% 1,000 ML IV SCH (23:45)
[2023-02-15 00:02] LABS: BASOPHILS PERCENT AUTO 0.9 % (0.0-1.0); EOSINOPHILS PERCENT AUTO 1.2 % (0.0-6.0); HEMATOCRIT 37.8 % (37.0-47.0); HEMOGLOBIN 13.2 gm/dl (12.0-16.0); IMMATURE GRAN ABSOLUTE AUTO 0.02 K/mm3 (0.00-0.05); IMMATURE GRAN PERCENT AUTO 0.6 % (0.0-0.4); LYMPHOCYTES ABSOLUTE AUTO 1.8 K/mm3 (1.0-4.8); LYMPHOCYTES PERCENT AUTO 53.7 % (24.0-44.0); MEAN CORPUSCULAR HEMOGLOBIN 34.4 pg (28.0-32.0); MEAN CORPUSCULAR HGB CONC 34.9 g/dl (32.0-36.0); MEAN CORPUSCULAR VOLUME 98.4 fl (83.0-99.0); MEAN PLATELET VOLUME 8.3 fl (9.4-12.3); MONOCYTES ABSOLUTE AUTO 0.5 K/mm3 (0.0-0.8); MONOCYTES PERCENT AUTO 15.9 % (0.0-8.0); NEUTROPHILS ABSOLUTE AUTO 0.9 K/mm3 (1.8-7.7); NEUTROPHILS PERCENT AUTO 27.7 % (41.0-71.0); PLATELET COUNT,PLT 182 K/mm3 (150-400); RED BLOOD CELL COUNT 3.84 M/mm3 (4.10-5.30); WHITE BLOOD CELL COUNT,WBC 3.28 K/mm3 (3.9-11.3)
[2023-02-15 00:25] LABS: ALBUMIN 3.5 g/dl (3.4-5.0); ANION GAP 18.6 (5-15); BILIRUBIN TOTAL 0.2 mg/dL (0.2-1.0); CALCIUM 8.5 mg/dL (8.5-10.1); CREATININE 0.6 mg/dL (0.55-1.02); EST CRCL DRUG DOSING (CG) 89.03 mL/min; ETHANOL BLOOD MEDICAL 0.44 gm% (0.00); POTASSIUM,K 3.6 mEq/L (3.5-5.1); PROTEIN TOTAL,TP 7.2 g/dl (6.4-8.2)
[2023-02-15 00:38] LABS: SLIDE REVIEW ABNORMAL SMEAR
[2023-02-15 00:45] LABS: BARBITURATE SCREEN,URINE NEGATIVE (CUTOFF=200); BENZODIAZEPINES SCREEN,URINE NEGATIVE (CUTOFF=150); BUPRENORPHINE SCREEN,URINE NEGATIVE (CUTOFF=10); METHADONE SCREEN, URINE NEGATIVE (CUTOFF=200); METHAMPHETAMINES SCREEN, URINE NEGATIVE (CUTOFF=500); OXYCODONE SCREEN,URINE NEGATIVE (CUT0FF=100); PROPOXYPHENE SCREEN,URINE NEGATIVE (CUTOFF=300); THC SCREEN,URINE 20 NG/ML NEGATIVE (CUTOFF=50)
[2023-02-15 01:15] LABS: AMPHETAMINES SCREEN, URINE NEGATIVE (CUTOFF=500)
[2023-02-15 02:23] VITALS: BP 110/71; PULSE 74
== END 2023-02-15 02:32 | disposition home or self-care (01) ==
LOC: JD.ED 23:06
DX: F10.229 Alcohol dependence with intoxication, unspecified (principal); S80.212A Abrasion, left knee, initial encounter; S80.211A Abrasion, right knee, initial encounter; G62.89 Other specified polyneuropathies; R29.898 Other symptoms and signs involving the musculoskeletal system; Y90.2 Blood alcohol level of 40-59 mg/100 ml; Z79.01 Long term (current) use of anticoagulants
CPT/HCPCS: 36415; 80053; 80306; 80307; 83690; 85025; 96361; 96374; 99284; J2405; J7030

== ENCOUNTER 2023-06-22 14:20 | Emergency (ER) | payer MEDICARE ==
[2023-06-22 14:35] VITALS: BP 101/78; PULSE 111
== END 2023-06-22 15:00 | disposition left against medical advice (07) ==
LOC: JD.ED 14:20
DX: M25.511 Pain in right shoulder (principal); A04.72 Enterocolitis due to Clostridium difficile, not specified as recurrent; F10.20 Alcohol dependence, uncomplicated; E03.9 Hypothyroidism, unspecified; Z86.16 Personal history of COVID-19; Z90.49 Acquired absence of other specified parts of digestive tract; Z79.899 Other long term (current) drug therapy
CPT/HCPCS: 99284

== ENCOUNTER 2023-06-24 16:08 | Emergency (ER) | payer MEDICARE ==
[2023-06-24] MEDS ORDERED: Vancomycin 125 MG Cap PO ONE (16:36)
[2023-06-24 17:49] VITALS: BP 129/88; PULSE 95
== END 2023-06-24 17:49 | disposition home or self-care (01) ==
LOC: JD.ED 16:08
DX: R10.33 Periumbilical pain (principal); E03.9 Hypothyroidism, unspecified; F17.210 Nicotine dependence, cigarettes, uncomplicated; Z86.16 Personal history of COVID-19
CPT/HCPCS: 99284; A9270; 99283

== ENCOUNTER 2023-06-25 15:19 | Emergency (ER) | payer MEDICARE ==
[2023-06-25 15:31] VITALS: PULSE 107
[2023-06-25 15:44] VITALS: BP 123/73
[2023-06-25] MEDS ORDERED: Ondansetron 4 MG/2 ML SDV IVPUSH ONE (15:59)
[2023-06-25] MEDS ORDERED: Sodium Chloride 0.9% 10 ML Syringe FLUSH PRN (15:59)
[2023-06-25] MEDS ORDERED: Sodium Chloride 0.9% 1,000 ML IV STA (15:59)
== END 2023-06-25 16:26 | disposition left against medical advice (07) ==
LOC: JD.ED 15:19
DX: Z53.29 Procedure and treatment not carried out because of patient's decision for other reasons (principal); E03.9 Hypothyroidism, unspecified
CPT/HCPCS: 99282; 99284

== ENCOUNTER 2023-08-23 13:32 | Inpatient (IN) | payer MEDICARE ==
[2023-08-23] MEDS: Sodium Chloride 0.9% 1,000 ML IV STA (14:37)
[2023-08-23] MEDS: Sodium Chloride 0.9% 10 ML Syringe FLUSH PRN (14:38)
[2023-08-23] MEDS: Ondansetron 4 MG/2 ML SDV IVPUSH ONE (14:38)
[2023-08-23 14:51] LABS: BASOPHILS PERCENT AUTO 0.2 % (0.0-1.0); EOSINOPHILS PERCENT AUTO 0.1 % (0.0-6.0); IMMATURE GRAN ABSOLUTE AUTO 0.02 K/mm3 (0.00-0.05); IMMATURE GRAN PERCENT AUTO 0.2 % (0.0-0.4); LYMPHOCYTES ABSOLUTE AUTO 1.3 K/mm3 (1.0-4.8); LYMPHOCYTES PERCENT AUTO 14.1 % (24.0-44.0); MEAN CORPUSCULAR HEMOGLOBIN 34.5 pg (28.0-32.0); MEAN CORPUSCULAR HGB CONC 36.6 g/dl (32.0-36.0); MEAN PLATELET VOLUME 8.8 fl (9.4-12.3); MONOCYTES ABSOLUTE AUTO 0.8 K/mm3 (0.0-0.8); MONOCYTES PERCENT AUTO 9.3 % (0.0-8.0); NEUTROPHILS ABSOLUTE AUTO 6.8 K/mm3 (1.8-7.7); NEUTROPHILS PERCENT AUTO 76.1 % (41.0-71.0); RED BLOOD CELL COUNT 4.67 M/mm3 (4.10-5.30); WHITE BLOOD CELL COUNT,WBC 8.88 K/mm3 (3.9-11.3)
[2023-08-23 14:52] LABS: HEMOGLOBIN 16.1 gm/dl (12.0-16.0); MEAN CORPUSCULAR VOLUME 94.2 fl (83.0-99.0); PLATELET COUNT,PLT 373 K/mm3 (150-400)
[2023-08-23 15:11] LABS: CORONAVIRUS COVID-19 NAA NEGATIVE (NEGATIVE); INFLUENZA A NAA NEGATIVE (NEGATIVE); RESPIRATORY SYNCYTIAL VIR NAA NEGATIVE (NEGATIVE)
[2023-08-23 15:13] LABS: A/G RATIO 0.8 (1-2); ALBUMIN 3.4 g/dl (3.4-5.0); ANION GAP 15.3 (5-15); BILIRUBIN TOTAL 0.8 mg/dL (0.2-1.0); C-REACTIVE PROTEIN 0.66 mg/dL (<0.30); CALCIUM 9.5 mg/dL (8.5-10.1); CREATININE 0.5 mg/dL (0.55-1.02); EST CRCL DRUG DOSING (CG) 101.31 mL/min; PROTEIN TOTAL,TP 7.5 g/dl (6.4-8.2)
[2023-08-23 15:18] LABS: POTASSIUM,K 2.3 mEq/L (3.5-5.1)
[2023-08-23] MEDS: Potassium Chloride 10 MEQ in Premix Bag 1 BAG IV SCH (15:39)
[2023-08-23] MEDS: Magnesium Sulfate/Water 4 GM in Premix Bag 1 BAG IV ONE (15:41)
[2023-08-23] MEDS ORDERED: Acetaminophen 325 MG Tab PO PRN (16:10)
[2023-08-23] MEDS ORDERED: Ondansetron 4 MG Tab.DIS PO PRN (16:10)
[2023-08-23] MEDS ORDERED: Dicyclomine 10 MG Cap PO PRN (16:22)
[2023-08-23] MEDS: Dicyclomine 10 MG Cap PO ONE (16:25)
[2023-08-23] MEDS: Famotidine 20 MG/2 ML SDV IVPUSH ONE (17:20)
[2023-08-23] MEDS: Heparin Sodium 5,000 Units/ML Vial SUBCUT SCH (17:40)
[2023-08-23] MEDS: Lactated Ringers 1,000 ML IV SCH (17:41)
[2023-08-23] MEDS: Pantoprazole 40 MG Vial IVPUSH SCH (17:51)
[2023-08-23] MEDS: Vancomycin 125 MG Cap PO SCH (17:51)
[2023-08-23] MEDS: Saccharomyces Boulardii (Probiotic) 250 MG Cap PO SCH (20:36)
[2023-08-23] MEDS: Ondansetron 4 MG/2 ML SDV IV PRN (21:32)
[2023-08-24 03:59] LABS: APPEARANCE,URINE CLOUDY (Clear); BILIRUBIN,URINE 1+ (Negative); COLOR,URINE YELLOW (Yellow); GLUCOSE,URINE NEGATIVE (Negative); KETONES,URINE 3+ (Negative); LEUKOCYTE ESTERASE,URINE 2+ (Negative); NITRITE,URINE NEGATIVE (Negative); OCCULT BLOOD,URINE NEGATIVE (Negative); PH,URINE 8.5 (5.0-8.0); PROTEIN,URINE TRACE (Negative)
[2023-08-24 04:13] LABS: BACTERIA,URINE MANY /hpf (FEW); EPITHELIAL CELLS,URINE 0-5 /hpf (0-5); MUCUS,URINE NOT SEEN /hpf (FEW); RBC,URINE 0-5 /hpf (0-5); WBC CLUMPS,URINE RARE /hpf (NOT SEEN)
[2023-08-24 05:01] LABS: BASOPHILS PERCENT AUTO 0.3 % (0.0-1.0); EOSINOPHILS PERCENT AUTO 0.5 % (0.0-6.0); HEMATOCRIT 34.5 % (37.0-47.0); HEMOGLOBIN 12.5 gm/dl (12.0-16.0); IMMATURE GRAN ABSOLUTE AUTO 0.03 K/mm3 (0.00-0.05); IMMATURE GRAN PERCENT AUTO 0.5 % (0.0-0.4); LYMPHOCYTES ABSOLUTE AUTO 1.4 K/mm3 (1.0-4.8); MEAN CORPUSCULAR HEMOGLOBIN 34.4 pg (28.0-32.0); MEAN CORPUSCULAR HGB CONC 36.2 g/dl (32.0-36.0); MEAN PLATELET VOLUME 8.9 fl (9.4-12.3); MONOCYTES ABSOLUTE AUTO 0.7 K/mm3 (0.0-0.8); MONOCYTES PERCENT AUTO 11.3 % (0.0-8.0); NEUTROPHILS ABSOLUTE AUTO 3.9 K/mm3 (1.8-7.7); NEUTROPHILS PERCENT AUTO 64.4 % (41.0-71.0); PLATELET COUNT,PLT 274 K/mm3 (150-400); RED BLOOD CELL COUNT 3.63 M/mm3 (4.10-5.30)
[2023-08-24 05:21] LABS: ANION GAP 10.2 (5-15); BUN/CREATININE RATIO 16.7 (14-18); CALCIUM 8.2 mg/dL (8.5-10.1); CREATININE 0.3 mg/dL (0.55-1.02); EST CRCL DRUG DOSING (CG) 163.33 mL/min; POTASSIUM,K 3.2 mEq/L (3.5-5.1)
[2023-08-24] MEDS ORDERED: cefTRIAXone 2 GM in Sodium Chloride 0.9% 100 ML IV SCH (06:30)
[2023-08-24] MEDS: Potassium Chloride 10 MEQ in Premix Bag 1 BAG IV SCH ×2 (06:56→10:08)
[2023-08-24] MEDS: Sodium Chloride 0.9% 1,000 ML IV SCH (09:11)
[2023-08-24] MEDS: cefTRIAXone 2 GM in Sodium Chloride 0.9% 100 ML IV SCH (09:12)
[2023-08-24] MEDS: Sodium Chloride 1 GM Tab PO SCH (09:15)
[2023-08-25 05:06] LABS: ANION GAP 13.3 (5-15); BUN/CREATININE RATIO 3.3 (14-18); CALCIUM 7.9 mg/dL (8.5-10.1); CREATININE 0.3 mg/dL (0.55-1.02); EST CRCL DRUG DOSING (CG) 163.33 mL/min; POTASSIUM,K 3.3 mEq/L (3.5-5.1)
[2023-08-25] MEDS: Potassium Chloride 10 MEQ in Premix Bag 1 BAG IV SCH (06:51)
[2023-08-25 14:28] VITALS: BP 122/78; PULSE 91
== END 2023-08-25 12:50 | disposition home or self-care (01) | DRG 372 ==
LOC: JD.ED 13:32 → JD.MS 16:08
PROVIDERS: ADMIT Hospitalist; ATTEND Hospitalist
DX: A04.72 Enterocolitis due to Clostridium difficile, not specified as recurrent (principal); N30.00 Acute cystitis without hematuria; R10.84 Generalized abdominal pain; R53.1 Weakness; G62.9 Polyneuropathy, unspecified; F41.9 Anxiety disorder, unspecified; E03.9 Hypothyroidism, unspecified; F17.210 Nicotine dependence, cigarettes, uncomplicated; E87.6 Hypokalemia; E83.42 Hypomagnesemia; E87.8 Other disorders of electrolyte and fluid balance, not elsewhere classified; R25.2 Cramp and spasm; Z86.711 Personal history of pulmonary embolism; Z87.81 Personal history of (healed) traumatic fracture; Z86.16 Personal history of COVID-19; Z98.890 Other specified postprocedural states; Z90.49 Acquired absence of other specified parts of digestive tract; Z98.51 Tubal ligation status
CPT/HCPCS: 0241U; 36415; 80048; 80053; 80307; 81001; 83690; 83735; 85025; 86140; 87045; 87046; 87324; 87493; 87899; 93005; 96361; 96365; 96375; 97162; 99285; 93010; 99284; A9270-GY; C9113; J0696; J1644; J2405; J3475; J3480; J3490; J7030; J7120

== ENCOUNTER 2023-09-09 08:35 | Emergency (ER) | payer MEDICARE ==
[2023-09-09] MEDS: Ondansetron 4 MG/2 ML SDV IVPUSH ONE ×2 (09:29→12:56)
[2023-09-09] MEDS: Sodium Chloride 0.9% 10 ML Syringe FLUSH PRN (09:29)
[2023-09-09] MEDS: Sodium Chloride 0.9% 1,000 ML IV ONE (09:30)
[2023-09-09 09:45] LABS: HEMATOCRIT 39.5 % (37.0-47.0); MEAN CORPUSCULAR HEMOGLOBIN 34.1 pg (28.0-32.0); MEAN CORPUSCULAR HGB CONC 35.7 g/dl (32.0-36.0); MEAN CORPUSCULAR VOLUME 95.4 fl (83.0-99.0); MEAN PLATELET VOLUME 8.9 fl (9.4-12.3); PLATELET COUNT,PLT 281 K/mm3 (150-400); RED BLOOD CELL COUNT 4.14 M/mm3 (4.10-5.30); WHITE BLOOD CELL COUNT,WBC 4.75 K/mm3 (3.9-11.3)
[2023-09-09 10:02] LABS: A/G RATIO 0.8 (1-2); ALBUMIN 2.7 g/dl (3.4-5.0); ANION GAP 19.3 (5-15); BILIRUBIN TOTAL 1.1 mg/dL (0.2-1.0); BUN/CREATININE RATIO 33.3 (14-18); CALCIUM 8.2 mg/dL (8.5-10.1); CREATININE 0.3 mg/dL (0.55-1.02); EST CRCL DRUG DOSING (CG) 162.72 mL/min; HEMOGLOBIN 14.1 gm/dl (12.0-16.0); MAGNESIUM 1.2 mg/dL (1.8-2.4); POTASSIUM,K 3.3 mEq/L (3.5-5.1); PROTEIN TOTAL,TP 5.9 g/dl (6.4-8.2)
[2023-09-09 10:03] LABS: C-REACTIVE PROTEIN 0.26 mg/dL (<0.30)
[2023-09-09 10:14] LABS: LACTIC ACID 0.7 mmol/L (0.4-2.0)
[2023-09-09 10:39] LABS: BAND PERCENT MAN 6 % (0-10); BASOPHILS PERCENT MAN 0 (0.1-1.2); EOSINOPHILS PERCENT MAN 0 % (0.7-5.8); LYMPHOCYTES % ATYPICAL MANUAL 0 %; LYMPHOCYTES PERCENT MAN 15 % (20-40); MONOCYTES PERCENT MAN 11 % (2-10)
[2023-09-09 10:42] LABS: PLATELET COUNT ESTIMATE ADEQUATE
[2023-09-09] MEDS: NS with KCl 40mEq 1,000 ML IV SCH (11:33)
[2023-09-09 15:37] VITALS: BP 134/94; PULSE 102
== END 2023-09-09 15:34 | disposition home or self-care (01) ==
LOC: JD.ED 08:35
DX: E87.6 Hypokalemia (principal); E03.9 Hypothyroidism, unspecified; Z79.899 Other long term (current) drug therapy; F17.210 Nicotine dependence, cigarettes, uncomplicated; Z91.048 Other nonmedicinal substance allergy status
CPT/HCPCS: 36415; 80053; 80307; 83605; 83690; 83735; 85007; 85027; 86140; 96361; 96365; 96366; 96375; 96376; 99283; 99284-25; J2405; J3480; J3490; J7030

== ENCOUNTER 2023-11-24 23:38 | Emergency (ER) | payer MEDICARE ==
[2023-11-24] MEDS: Sodium Chloride 0.9% 10 ML Syringe FLUSH PRN (23:50)
[2023-11-24 23:56] VITALS: BP 100/75; PULSE 120
[2023-11-25 00:15] LABS: BASOPHILS PERCENT AUTO 0.1 % (0.0-1.0); EOSINOPHILS PERCENT AUTO 0.1 % (0.0-6.0); HEMATOCRIT 27.3 % (37.0-47.0); IMMATURE GRAN ABSOLUTE AUTO 0.05 K/mm3 (0.00-0.05); IMMATURE GRAN PERCENT AUTO 0.6 % (0.0-0.4); LYMPHOCYTES ABSOLUTE AUTO 1.7 K/mm3 (1.0-4.8); LYMPHOCYTES PERCENT AUTO 18.3 % (24.0-44.0); MEAN CORPUSCULAR HGB CONC 36.6 g/dl (32.0-36.0); MEAN CORPUSCULAR VOLUME 95.5 fl (83.0-99.0); MEAN PLATELET VOLUME 8.8 fl (9.4-12.3); MONOCYTES ABSOLUTE AUTO 0.6 K/mm3 (0.0-0.8); MONOCYTES PERCENT AUTO 6.5 % (0.0-8.0); NEUTROPHILS ABSOLUTE AUTO 6.7 K/mm3 (1.8-7.7); NEUTROPHILS PERCENT AUTO 74.4 % (41.0-71.0); PLATELET COUNT,PLT 273 K/mm3 (150-400); RED BLOOD CELL COUNT 2.86 M/mm3 (4.10-5.30); WHITE BLOOD CELL COUNT,WBC 9.03 K/mm3 (3.9-11.3)
[2023-11-25 00:18] LABS: A/G RATIO 0.4 (1-2); ALBUMIN 1.2 g/dl (3.4-5.0); ANION GAP 14.6 (5-15); BILIRUBIN TOTAL 0.3 mg/dL (0.2-1.0); BUN/CREATININE RATIO 3.3 (14-18); CALCIUM 7.3 mg/dL (8.5-10.1); CREATININE 0.3 mg/dL (0.55-1.02); EST CRCL DRUG DOSING (CG) 208.47 mL/min; ETHANOL BLOOD MEDICAL 0.05 gm% (0.00); MAGNESIUM 1.5 mg/dL (1.8-2.4); POTASSIUM,K 2.6 mEq/L (3.5-5.1); PROTEIN TOTAL,TP 4.1 g/dl (6.4-8.2)
== END 2023-11-25 00:53 | disposition left against medical advice (07) ==
LOC: JD.ED 23:38
DX: F40.8 Other phobic anxiety disorders (principal); E87.6 Hypokalemia; Z91.048 Other nonmedicinal substance allergy status; Z91.018 Allergy to other foods
CPT/HCPCS: 36415; 80053; 80307; 83735; 85025; 99283; J3490; 99284

== ENCOUNTER 2023-11-29 06:29 | Inpatient (IN) | payer MEDICARE, MEDICAID ==
[2023-11-29] MEDS: Metoclopramide 10 MG/2 ML SDV IVPUSH ONE (08:10)
[2023-11-29] MEDS: HYDROmorphone 0.5 MG/0.5 ML Syringe IVPUSH ONE (08:13)
[2023-11-29] MEDS: Dextrose 5%-Lactated Ringers 1,000 ML IV SCH (08:17)
[2023-11-29] MEDS: Gabapentin 100 MG Cap PO ONE (08:30)
[2023-11-29 08:47] LABS: EOSINOPHILS PERCENT AUTO 0.1 % (0.0-6.0); HEMATOCRIT 25.3 % (37.0-47.0); HEMOGLOBIN 8.8 gm/dl (12.0-16.0); IMMATURE GRAN ABSOLUTE AUTO 0.04 K/mm3 (0.00-0.05); IMMATURE GRAN PERCENT AUTO 0.5 % (0.0-0.4); LYMPHOCYTES ABSOLUTE AUTO 1.1 K/mm3 (1.0-4.8); LYMPHOCYTES PERCENT AUTO 13.2 % (24.0-44.0); MEAN CORPUSCULAR HEMOGLOBIN 34.2 pg (28.0-32.0); MEAN CORPUSCULAR HGB CONC 34.8 g/dl (32.0-36.0); MEAN CORPUSCULAR VOLUME 98.4 fl (83.0-99.0); MEAN PLATELET VOLUME 8.3 fl (9.4-12.3); MONOCYTES ABSOLUTE AUTO 0.6 K/mm3 (0.0-0.8); MONOCYTES PERCENT AUTO 6.7 % (0.0-8.0); NEUTROPHILS ABSOLUTE AUTO 6.7 K/mm3 (1.8-7.7); NEUTROPHILS PERCENT AUTO 79.5 % (41.0-71.0); PLATELET COUNT,PLT 248 K/mm3 (150-400); RED BLOOD CELL COUNT 2.57 M/mm3 (4.10-5.30); WHITE BLOOD CELL COUNT,WBC 8.39 K/mm3 (3.9-11.3)
[2023-11-29 09:21] LABS: LACTIC ACID 1.8 mmol/L (0.4-2.0)
[2023-11-29 09:24] LABS: A/G RATIO 0.3 (1-2); ALANINE AMINOTRANSFERASE,ALT 14 U/L (14-59); ALKALINE PHOSPHATASE 85 U/L (46-116); ANION GAP 13.3 (5-15); ASPARTATE AMNIOTRANSFERASE,AST 29 U/L (15-37); BILIRUBIN TOTAL 0.7 mg/dL (0.2-1.0); BLOOD UREA NITROGEN,BUN 5 mg/dL (7-18); BUN/CREATININE RATIO 12.5 (14-18); CARBON DIOXIDE,CO2 25 mEq/L (21-32); CHLORIDE,CL 99 mEq/L (98-107); CREATININE 0.4 mg/dL (0.55-1.02); ESTIMATED GFR 118 mL/min (>60); GLUCOSE RANDOM 120 mg/dL (70-99); LIPASE 12 U/L (16-77); MAGNESIUM 1.5 mg/dL (1.8-2.4); POTASSIUM,K 3.3 mEq/L (3.5-5.1); PROTEIN TOTAL,TP 4.1 g/dl (6.4-8.2); SODIUM,NA 134 mEq/L (136-145); TROPONIN I HIGH SENSITIVITY 7 pg/mL (<=51)
[2023-11-29] MEDS ORDERED: Acetaminophen 325 MG Tab PO PRN (10:26)
[2023-11-29 10:52] LABS: PHOSPHORUS 3.5 mg/dL (2.6-4.7); T4 FREE 0.79 ng/dL (0.76-1.46)
[2023-11-29] MEDS: Potassium Chloride 10 MEQ in Premix Bag 1 BAG IV ONE (11:36)
[2023-11-29] MEDS: Heparin Sodium 5,000 Units/ML Vial SUBCUT SCH (11:38)
[2023-11-29] MEDS: Folic Acid 1 MG Tab PO SCH (11:48)
[2023-11-29] MEDS: Potassium Chloride 20 MEQ Tab.ER PO ONE (12:18)
[2023-11-29] MEDS: Thiamine 100 MG Tab PO SCH (12:19)
[2023-11-29] MEDS: Magnesium Sulfate/Water 4 GM in Premix Bag 1 BAG IV ONE (12:51)
[2023-11-29] MEDS: traMADol 50 MG Tab PO PRN ×2 (13:13→19:30)
[2023-11-29] MEDS: Gabapentin 100 MG Cap PO SCH (15:07)
[2023-11-29] MEDS: Bacitracin Oint 15 GM Tube TOP SCH (15:07)
[2023-11-29 15:16] LABS: IRON,FE 47 ug/dL (50-170); PERCENT FE SATURATION 69 % (20-55); TRANSFERRIN 54 mg/dL (202-364)
[2023-11-29 15:20] LABS: TOTAL IRON BINDING CAPACITY 68 ug/dL (100-400)
[2023-11-29] MEDS: Ondansetron 4 MG Tab.DIS PO PRN (15:58)
[2023-11-29 16:27] LABS: APPEARANCE,URINE CLOUDY (Clear); BILIRUBIN,URINE NEGATIVE (Negative); COLOR,URINE YELLOW (Yellow); GLUCOSE,URINE NEGATIVE (Negative); KETONES,URINE 1+ (Negative); LEUKOCYTE ESTERASE,URINE 3+ (Negative); NITRITE,URINE NEGATIVE (Negative); OCCULT BLOOD,URINE TRACE-LYSED (Negative); PROTEIN,URINE NEGATIVE (Negative); UROBILINOGEN,URINE 0.2 (0.2-1.0)
[2023-11-29 16:49] LABS: SQUAMOUS EPITHELIAL CELLS,UR 0-5 /hpf (0-5); WBC,URINE 30-40 /hpf (0-5)
[2023-11-29 16:50] LABS: BACTERIA,URINE FEW /hpf (FEW); MUCUS,URINE MODERATE /hpf (FEW); YEAST,URINE MANY (NOT SEEN)
[2023-11-29] MEDS: Sodium Chloride 0.9% 1,000 ML IV SCH (16:58)
[2023-11-30] MEDS: Levothyroxine 50 MCG Tab PO SCH (05:20)
[2023-11-30] MEDS ORDERED: Levothyroxine 75 MCG Tab PO SCH (06:00)
[2023-11-30] MEDS ORDERED: Levothyroxine 25 MCG Tab PO SCH (06:00)
[2023-11-30 06:17] LABS: BASOPHILS PERCENT AUTO 0.2 % (0.0-1.0); EOSINOPHILS ABSOLUTE AUTO 0.1 K/mm3 (0.0-0.4); HEMATOCRIT 20.1 % (37.0-47.0); IMMATURE GRAN ABSOLUTE AUTO 0.03 K/mm3 (0.00-0.05); IMMATURE GRAN PERCENT AUTO 0.5 % (0.0-0.4); LYMPHOCYTES ABSOLUTE AUTO 1.4 K/mm3 (1.0-4.8); MEAN CORPUSCULAR HEMOGLOBIN 34.7 pg (28.0-32.0); MEAN CORPUSCULAR HGB CONC 34.8 g/dl (32.0-36.0); MEAN CORPUSCULAR VOLUME 99.5 fl (83.0-99.0); MEAN PLATELET VOLUME 8.6 fl (9.4-12.3); MONOCYTES ABSOLUTE AUTO 0.4 K/mm3 (0.0-0.8); MONOCYTES PERCENT AUTO 7.2 % (0.0-8.0); NEUTROPHILS ABSOLUTE AUTO 3.9 K/mm3 (1.8-7.7); NEUTROPHILS PERCENT AUTO 67.1 % (41.0-71.0); PLATELET COUNT,PLT 177 K/mm3 (150-400); RED BLOOD CELL COUNT 2.02 M/mm3 (4.10-5.30); WHITE BLOOD CELL COUNT,WBC 5.83 K/mm3 (3.9-11.3)
[2023-11-30 06:35] LABS: A/G RATIO 0.3 (1-2); ALBUMIN 0.8 g/dl (3.4-5.0); ANION GAP 9.4 (5-15); BILIRUBIN TOTAL 0.3 mg/dL (0.2-1.0); CALCIUM 6.7 mg/dL (8.5-10.1); CREATININE 0.4 mg/dL (0.55-1.02); EST CRCL DRUG DOSING (CG) 138.96 mL/min; MAGNESIUM 1.9 mg/dL (1.8-2.4); POTASSIUM,K 3.4 mEq/L (3.5-5.1); PROTEIN TOTAL,TP 3.4 g/dl (6.4-8.2)
[2023-11-30 10:18] LABS: HEMATOCRIT 19.9 % (37.0-47.0)
[2023-11-30] MEDS: Sodium Chloride 0.9% 1,000 ML ONE (10:18)
[2023-11-30] MEDS: Sodium Chloride 0.9% 1,000 ML IV SCH (10:18)
[2023-11-30] MEDS: Potassium Chloride 20 MEQ Tab.ER PO ONE ×2 (11:42→20:08)
[2023-11-30] MEDS: Albumin 25% 100 ML ONE (11:45)
[2023-11-30] MEDS: Vancomycin 125 MG Cap PO SCH (11:46)
[2023-11-30 13:23] LABS: RETICULOCYTE COUNT PERCENT 3.6 % (0.50-2.00)
[2023-11-30 17:39] LABS: HEMATOCRIT 17.4 % (37.0-47.0)
[2023-11-30] MEDS: Pantoprazole 40 MG Tab.CR PO SCH (17:50)
[2023-11-30 18:09] LABS: INR 1.05; PROTHROMBIN TIME 11.2 SECONDS (9.7-12.0)
[2023-11-30] MEDS ORDERED: Sodium Chloride 0.9% 250 ML IV SCH (18:45)
[2023-11-30] MEDS: Cholecalciferol (Vitamin D3) 5,000 UNIT Cap PO SCH (20:06)
[2023-11-30] MEDS: Gabapentin 300 MG Cap PO SCH (20:07)
[2023-11-30] MEDS: Melatonin 3 MG Tab PO SCH (20:07)
[2023-12-01] MEDS: Potassium Chloride 20 MEQ Tab.ER PO ONE (03:24)
[2023-12-01] MEDS: Magnesium Sulfate/Water 2 GM in Premix Bag 1 BAG IV ONE (03:24)
[2023-12-01 04:47] LABS: BASOPHILS PERCENT AUTO 0.2 % (0.0-1.0); EOSINOPHILS ABSOLUTE AUTO 0.1 K/mm3 (0.0-0.4); EOSINOPHILS PERCENT AUTO 1.7 % (0.0-6.0); HEMATOCRIT 23.1 % (37.0-47.0); IMMATURE GRAN ABSOLUTE AUTO 0.03 K/mm3 (0.00-0.05); IMMATURE GRAN PERCENT AUTO 0.7 % (0.0-0.4); LYMPHOCYTES ABSOLUTE AUTO 1.2 K/mm3 (1.0-4.8); LYMPHOCYTES PERCENT AUTO 28.3 % (24.0-44.0); MEAN CORPUSCULAR HEMOGLOBIN 32.7 pg (28.0-32.0); MEAN CORPUSCULAR HGB CONC 34.6 g/dl (32.0-36.0); MEAN CORPUSCULAR VOLUME 94.3 fl (83.0-99.0); MEAN PLATELET VOLUME 8.8 fl (9.4-12.3); MONOCYTES ABSOLUTE AUTO 0.3 K/mm3 (0.0-0.8); MONOCYTES PERCENT AUTO 6.8 % (0.0-8.0); NEUTROPHILS ABSOLUTE AUTO 2.6 K/mm3 (1.8-7.7); NEUTROPHILS PERCENT AUTO 62.3 % (41.0-71.0); PLATELET COUNT,PLT 169 K/mm3 (150-400); RED BLOOD CELL COUNT 2.45 M/mm3 (4.10-5.30); WHITE BLOOD CELL COUNT,WBC 4.14 K/mm3 (3.9-11.3)
[2023-12-01 05:36] LABS: A/G RATIO 0.5 (1-2); ALBUMIN 1.2 g/dl (3.4-5.0); BILIRUBIN TOTAL 0.7 mg/dL (0.2-1.0); BUN/CREATININE RATIO 7.5 (14-18); CREATININE 0.4 mg/dL (0.55-1.02); EST CRCL DRUG DOSING (CG) 145.87 mL/min; MAGNESIUM 1.6 mg/dL (1.8-2.4); PROTEIN TOTAL,TP 3.6 g/dl (6.4-8.2)
[2023-12-01 05:42] LABS: ANION GAP 8.5 (5-15); POTASSIUM,K 4.5 mEq/L (3.5-5.1)
[2023-12-01] MEDS: Magnesium Sulfate/Water 4 GM in Premix Bag 1 BAG IV ONE (08:57)
[2023-12-01 12:24] LABS: HEMATOCRIT 24.7 % (37.0-47.0); HEMOGLOBIN 8.4 gm/dl (12.0-16.0)
[2023-12-01] MEDS: Magnesium Oxide 400 MG Tab PO SCH (20:10)
[2023-12-01] MEDS: Vitamin B6-pyridOXINE 50 MG Tab PO SCH (20:11)
[2023-12-01] MEDS: Cyanocobalamin (Vitamin B12) 1,000 MCG Tab PO SCH (20:11)
[2023-12-02 04:50] LABS: BASOPHILS PERCENT AUTO 0.2 % (0.0-1.0); EOSINOPHILS ABSOLUTE AUTO 0.1 K/mm3 (0.0-0.4); EOSINOPHILS PERCENT AUTO 1.3 % (0.0-6.0); HEMATOCRIT 24.7 % (37.0-47.0); HEMOGLOBIN 8.3 gm/dl (12.0-16.0); IMMATURE GRAN ABSOLUTE AUTO 0.04 K/mm3 (0.00-0.05); IMMATURE GRAN PERCENT AUTO 0.9 % (0.0-0.4); LYMPHOCYTES ABSOLUTE AUTO 1.3 K/mm3 (1.0-4.8); LYMPHOCYTES PERCENT AUTO 27.7 % (24.0-44.0); MEAN CORPUSCULAR HEMOGLOBIN 32.9 pg (28.0-32.0); MEAN CORPUSCULAR HGB CONC 33.6 g/dl (32.0-36.0); MEAN PLATELET VOLUME 8.6 fl (9.4-12.3); MONOCYTES ABSOLUTE AUTO 0.4 K/mm3 (0.0-0.8); MONOCYTES PERCENT AUTO 9.3 % (0.0-8.0); NEUTROPHILS ABSOLUTE AUTO 2.7 K/mm3 (1.8-7.7); NEUTROPHILS PERCENT AUTO 60.6 % (41.0-71.0); PLATELET COUNT,PLT 170 K/mm3 (150-400); RED BLOOD CELL COUNT 2.52 M/mm3 (4.10-5.30); WHITE BLOOD CELL COUNT,WBC 4.51 K/mm3 (3.9-11.3)
[2023-12-02] MEDS: Sodium Chloride 0.9% 1,000 ML IV SCH (05:22)
[2023-12-02 05:23] LABS: A/G RATIO 0.4 (1-2); ALBUMIN 1.2 g/dl (3.4-5.0); ANION GAP 8.5 (5-15); BILIRUBIN TOTAL 0.3 mg/dL (0.2-1.0); C-REACTIVE PROTEIN 2.28 mg/dL (<0.30); CALCIUM 7.2 mg/dL (8.5-10.1); CREATININE 0.4 mg/dL (0.55-1.02); EST CRCL DRUG DOSING (CG) 145.87 mL/min; MAGNESIUM 1.8 mg/dL (1.8-2.4); POTASSIUM,K 4.5 mEq/L (3.5-5.1); PROTEIN TOTAL,TP 3.9 g/dl (6.4-8.2)
[2023-12-02] MEDS: Folic Acid 1 MG Tab PO SCH (08:23)
[2023-12-02] MEDS: Calcium Carbonate 500 MG Tab.Chew PO PRN (18:36)
[2023-12-03 04:58] LABS: BASOPHILS PERCENT AUTO 0.4 % (0.0-1.0); EOSINOPHILS ABSOLUTE AUTO 0.1 K/mm3 (0.0-0.4); EOSINOPHILS PERCENT AUTO 1.5 % (0.0-6.0); HEMATOCRIT 25.7 % (37.0-47.0); HEMOGLOBIN 8.5 gm/dl (12.0-16.0); IMMATURE GRAN ABSOLUTE AUTO 0.04 K/mm3 (0.00-0.05); IMMATURE GRAN PERCENT AUTO 0.8 % (0.0-0.4); LYMPHOCYTES ABSOLUTE AUTO 1.3 K/mm3 (1.0-4.8); MEAN CORPUSCULAR HEMOGLOBIN 32.4 pg (28.0-32.0); MEAN CORPUSCULAR HGB CONC 33.1 g/dl (32.0-36.0); MEAN CORPUSCULAR VOLUME 98.1 fl (83.0-99.0); MEAN PLATELET VOLUME 8.7 fl (9.4-12.3); MONOCYTES ABSOLUTE AUTO 0.6 K/mm3 (0.0-0.8); MONOCYTES PERCENT AUTO 12.3 % (0.0-8.0); NEUTROPHILS ABSOLUTE AUTO 2.7 K/mm3 (1.8-7.7); PLATELET COUNT,PLT 192 K/mm3 (150-400); RED BLOOD CELL COUNT 2.62 M/mm3 (4.10-5.30); WHITE BLOOD CELL COUNT,WBC 4.72 K/mm3 (3.9-11.3)
[2023-12-03 05:26] LABS: A/G RATIO 0.4 (1-2); ALBUMIN 1.2 g/dl (3.4-5.0); ANION GAP 8.2 (5-15); BILIRUBIN TOTAL 0.2 mg/dL (0.2-1.0); BUN/CREATININE RATIO 12.5 (14-18); CALCIUM 7.5 mg/dL (8.5-10.1); CREATININE 0.4 mg/dL (0.55-1.02); EST CRCL DRUG DOSING (CG) 150.48 mL/min; MAGNESIUM 1.4 mg/dL (1.8-2.4); POTASSIUM,K 4.2 mEq/L (3.5-5.1); PROTEIN TOTAL,TP 4.1 g/dl (6.4-8.2)
[2023-12-03 07:47] LABS: CALPROTECTIN,FECAL 67 ug/g (<=49)
[2023-12-03] MEDS: Magnesium Sulfate/Water 2 GM in Premix Bag 1 BAG IV ONE (08:18)
[2023-12-03] MEDS: Ondansetron 4 MG/2 ML SDV IV PRN (18:15)
[2023-12-04] MEDS ORDERED: Magnesium Sulfate (4.06 MEQ/ML) 5 GM/10 ML SDV IV ONE (08:22)
[2023-12-04] MEDS: Heparin Sodium 5,000 Units/ML Vial SUBCUT SCH (14:22)
[2023-12-05 05:31] LABS: BASOPHILS PERCENT AUTO 0.5 % (0.0-1.0); EOSINOPHILS ABSOLUTE AUTO 0.1 K/mm3 (0.0-0.4); EOSINOPHILS PERCENT AUTO 1.6 % (0.0-6.0); HEMATOCRIT 26.4 % (37.0-47.0); HEMOGLOBIN 8.7 gm/dl (12.0-16.0); IMMATURE GRAN ABSOLUTE AUTO 0.04 K/mm3 (0.00-0.05); IMMATURE GRAN PERCENT AUTO 0.9 % (0.0-0.4); LYMPHOCYTES ABSOLUTE AUTO 1.1 K/mm3 (1.0-4.8); LYMPHOCYTES PERCENT AUTO 26.1 % (24.0-44.0); MEAN CORPUSCULAR HEMOGLOBIN 32.8 pg (28.0-32.0); MEAN CORPUSCULAR VOLUME 99.6 fl (83.0-99.0); MEAN PLATELET VOLUME 8.9 fl (9.4-12.3); MONOCYTES ABSOLUTE AUTO 0.7 K/mm3 (0.0-0.8); MONOCYTES PERCENT AUTO 16.9 % (0.0-8.0); NEUTROPHILS ABSOLUTE AUTO 2.4 K/mm3 (1.8-7.7); RED BLOOD CELL COUNT 2.65 M/mm3 (4.10-5.30); WHITE BLOOD CELL COUNT,WBC 4.37 K/mm3 (3.9-11.3)
[2023-12-05 05:39] LABS: PLATELET COUNT,PLT 274 K/mm3 (150-400)
[2023-12-05 05:58] LABS: BUN/CREATININE RATIO 26.7 (14-18); CALCIUM 8.1 mg/dL (8.5-10.1); CREATININE 0.3 mg/dL (0.55-1.02); EST CRCL DRUG DOSING (CG) 201.25 mL/min; MAGNESIUM 1.4 mg/dL (1.8-2.4)
[2023-12-05] MEDS: Sodium Chloride 0.9% 1,000 ML IV SCH (14:22)
[2023-12-06 05:36] LABS: ANION GAP 9.5 (5-15); BUN/CREATININE RATIO 17.5 (14-18); CALCIUM 8.5 mg/dL (8.5-10.1); CREATININE 0.4 mg/dL (0.55-1.02); EST CRCL DRUG DOSING (CG) 150.9 mL/min; MAGNESIUM 1.4 mg/dL (1.8-2.4); POTASSIUM,K 3.5 mEq/L (3.5-5.1)
[2023-12-06 05:48] LABS: HEMATOCRIT 28.6 % (37.0-47.0); HEMOGLOBIN 9.3 gm/dl (12.0-16.0); MEAN CORPUSCULAR HEMOGLOBIN 32.7 pg (28.0-32.0); MEAN CORPUSCULAR HGB CONC 32.5 g/dl (32.0-36.0); MEAN CORPUSCULAR VOLUME 100.7 fl (83.0-99.0); PLATELET COUNT,PLT 330 K/mm3 (150-400); RED BLOOD CELL COUNT 2.84 M/mm3 (4.10-5.30)
[2023-12-06] MEDS: Magnesium Oxide 400 MG Tab PO ONE (08:49)
[2023-12-06] MEDS: Magnesium Sulfate/Water 2 GM in Premix Bag 1 BAG IV ONE (14:06)
[2023-12-06] MEDS: Cholestyramine/Sucrose Powder 4 GM Packet PO SCH ×2 (16:53→17:01)
[2023-12-06] MEDS: Loperamide 2 MG Cap PO ONE (17:00)
[2023-12-06] MEDS ORDERED: Magnesium Oxide 400 MG Tab PO SCH (21:00)
[2023-12-07] MEDS: Loperamide 2 MG Cap PO PRN (00:44)
[2023-12-07 04:44] LABS: BASOPHILS PERCENT AUTO 0.6 % (0.0-1.0); EOSINOPHILS ABSOLUTE AUTO 0.1 K/mm3 (0.0-0.4); IMMATURE GRAN ABSOLUTE AUTO 0.07 K/mm3 (0.00-0.05); IMMATURE GRAN PERCENT AUTO 1.3 % (0.0-0.4); LYMPHOCYTES ABSOLUTE AUTO 1.6 K/mm3 (1.0-4.8); LYMPHOCYTES PERCENT AUTO 30.3 % (24.0-44.0); MEAN PLATELET VOLUME 8.5 fl (9.4-12.3); MONOCYTES ABSOLUTE AUTO 0.8 K/mm3 (0.0-0.8); MONOCYTES PERCENT AUTO 14.9 % (0.0-8.0); NEUTROPHILS ABSOLUTE AUTO 2.8 K/mm3 (1.8-7.7); NEUTROPHILS PERCENT AUTO 50.9 % (41.0-71.0); PLATELET COUNT,PLT 365 K/mm3 (150-400); WHITE BLOOD CELL COUNT,WBC 5.42 K/mm3 (3.9-11.3)
[2023-12-07 05:12] LABS: A/G RATIO 0.4 (1-2); ALBUMIN 1.5 g/dl (3.4-5.0); ANION GAP 8.9 (5-15); BILIRUBIN TOTAL 0.2 mg/dL (0.2-1.0); BUN/CREATININE RATIO 7.5 (14-18); C-REACTIVE PROTEIN 1.23 mg/dL (<0.30); CALCIUM 8.3 mg/dL (8.5-10.1); CREATININE 0.4 mg/dL (0.55-1.02); EST CRCL DRUG DOSING (CG) 150.9 mL/min; MAGNESIUM 1.7 mg/dL (1.8-2.4); POTASSIUM,K 3.9 mEq/L (3.5-5.1)
[2023-12-07] MEDS: Magnesium Sulfate/Water 4 GM in Premix Bag 1 BAG IV ONE (09:12)
[2023-12-07] MEDS: Octreotide 100 MCG/ML SDV SUBCUT SCH (10:26)
[2023-12-08 04:45] LABS: BASOPHILS PERCENT AUTO 0.5 % (0.0-1.0); EOSINOPHILS ABSOLUTE AUTO 0.1 K/mm3 (0.0-0.4); EOSINOPHILS PERCENT AUTO 1.3 % (0.0-6.0); HEMATOCRIT 26.7 % (37.0-47.0); HEMOGLOBIN 8.7 gm/dl (12.0-16.0); IMMATURE GRAN ABSOLUTE AUTO 0.06 K/mm3 (0.00-0.05); IMMATURE GRAN PERCENT AUTO 0.9 % (0.0-0.4); LYMPHOCYTES ABSOLUTE AUTO 1.7 K/mm3 (1.0-4.8); LYMPHOCYTES PERCENT AUTO 26.3 % (24.0-44.0); MEAN CORPUSCULAR HGB CONC 32.6 g/dl (32.0-36.0); MEAN CORPUSCULAR VOLUME 101.1 fl (83.0-99.0); MEAN PLATELET VOLUME 8.5 fl (9.4-12.3); MONOCYTES PERCENT AUTO 15.1 % (0.0-8.0); NEUTROPHILS ABSOLUTE AUTO 3.6 K/mm3 (1.8-7.7); NEUTROPHILS PERCENT AUTO 55.9 % (41.0-71.0); PLATELET COUNT,PLT 448 K/mm3 (150-400); RED BLOOD CELL COUNT 2.64 M/mm3 (4.10-5.30); WHITE BLOOD CELL COUNT,WBC 6.35 K/mm3 (3.9-11.3)
[2023-12-08 05:12] LABS: A/G RATIO 0.4 (1-2); ALBUMIN 1.6 g/dl (3.4-5.0); ANION GAP 10.2 (5-15); BILIRUBIN TOTAL 0.2 mg/dL (0.2-1.0); C-REACTIVE PROTEIN 1.96 mg/dL (<0.30); CALCIUM 8.4 mg/dL (8.5-10.1); CREATININE 0.3 mg/dL (0.55-1.02); EST CRCL DRUG DOSING (CG) 155.66 mL/min; MAGNESIUM 1.8 mg/dL (1.8-2.4); POTASSIUM,K 4.2 mEq/L (3.5-5.1); PROTEIN TOTAL,TP 5.3 g/dl (6.4-8.2)
[2023-12-08 16:19] VITALS: BP 114/78; PULSE 120
== END 2023-12-08 18:40 | DRG 372 ==
LOC: JD.ED 06:29 → EEVIPCON 10:22 → JD.MS 10:22
PROVIDERS: ADMIT Student in an Organized Health Care Education/Training Program; ATTEND Student in an Organized Health Care Education/Training Program
DX: A04.72 Enterocolitis due to Clostridium difficile, not specified as recurrent (principal); E46 Unspecified protein-calorie malnutrition; L03.315 Cellulitis of perineum; Z68.1 Body mass index [BMI] 19.9 or less, adult; R64 Cachexia; E87.1 Hypo-osmolality and hyponatremia; E03.9 Hypothyroidism, unspecified; D64.9 Anemia, unspecified; R62.7 Adult failure to thrive; Z68.43 Body mass index [BMI] 50.0-59.9, adult; Z79.899 Other long term (current) drug therapy; Z91.048 Other nonmedicinal substance allergy status; G62.9 Polyneuropathy, unspecified; E87.6 Hypokalemia; E83.42 Hypomagnesemia; D50.9 Iron deficiency anemia, unspecified; F41.9 Anxiety disorder, unspecified; E88.09 Other disorders of plasma-protein metabolism, not elsewhere classified; R33.9 Retention of urine, unspecified; E53.8 Deficiency of other specified B group vitamins; F10.10 Alcohol abuse, uncomplicated; F32.A Depression, unspecified; I95.9 Hypotension, unspecified; E03.8 Other specified hypothyroidism; L98.411 Non-pressure chronic ulcer of buttock limited to breakdown of skin; L98.491 Non-pressure chronic ulcer of skin of other sites limited to breakdown of skin; R05.9 Cough, unspecified; R26.2 Difficulty in walking, not elsewhere classified; R32 Unspecified urinary incontinence; F17.200 Nicotine dependence, unspecified, uncomplicated; Z88.8 Allergy status to other drugs, medicaments and biological substances; Z98.51 Tubal ligation status; Z90.49 Acquired absence of other specified parts of digestive tract; Z90.89 Acquired absence of other organs; Z98.890 Other specified postprocedural states; Z79.890 Hormone replacement therapy; Z86.718 Personal history of other venous thrombosis and embolism; Z86.711 Personal history of pulmonary embolism; Z91.199 Patient's noncompliance with other medical treatment and regimen due to unspecified reason
CPT/HCPCS: 36415; 80053; 80307; 82010; 83540; 83605; 83690; 83735; 83880; 84100; 84439; 84443; 84466; 84484; 85025; 86140; 93005; 96361; 96374; 96375; 99285; A9270; J1170; J2765; J7121; 36430; 51702; 51798; 71045; 71045-26; 74018; 74018-26; 76705; 76705-26; 80048; 81001; 82306; 82728; 85014; 85018; 85027; 85045; 85610; 86850; 86900; 86901; 86922; 87045; 87046; 87086; 87147; 87324; 87328; 87329; 87493; 87899; 93010; 94760; 94761; 97110-GP; 97161-GP; J1644; J2354-JB-GY; J2405; J3475; J3480; J7030; P9016

== ENCOUNTER 2024-03-03 18:18 | Emergency (ER) | payer MEDICARE, MEDICAID ==
[2024-03-03 18:26] VITALS: BP 115/74; PULSE 115
[2024-03-03 19:37] LABS: BASOPHILS PERCENT AUTO 0.6 % (0.0-1.0); EOSINOPHILS ABSOLUTE AUTO 0.1 K/mm3 (0.0-0.4); EOSINOPHILS PERCENT AUTO 1.3 % (0.0-6.0); HEMATOCRIT 32.6 % (37.0-47.0); HEMOGLOBIN 10.9 gm/dl (12.0-16.0); IMMATURE GRAN ABSOLUTE AUTO 0.01 K/mm3 (0.00-0.05); IMMATURE GRAN PERCENT AUTO 0.2 % (0.0-0.4); LYMPHOCYTES ABSOLUTE AUTO 2.6 K/mm3 (1.0-4.8); LYMPHOCYTES PERCENT AUTO 54.9 % (24.0-44.0); MEAN CORPUSCULAR HGB CONC 33.4 g/dl (32.0-36.0); MEAN CORPUSCULAR VOLUME 92.6 fl (83.0-99.0); MEAN PLATELET VOLUME 8.9 fl (9.4-12.3); MONOCYTES ABSOLUTE AUTO 0.3 K/mm3 (0.0-0.8); MONOCYTES PERCENT AUTO 5.9 % (0.0-8.0); NEUTROPHILS ABSOLUTE AUTO 1.8 K/mm3 (1.8-7.7); NEUTROPHILS PERCENT AUTO 37.1 % (41.0-71.0); PLATELET COUNT,PLT 326 K/mm3 (150-400); RED BLOOD CELL COUNT 3.52 M/mm3 (4.10-5.30); WHITE BLOOD CELL COUNT,WBC 4.77 K/mm3 (3.9-11.3)
[2024-03-03 20:01] LABS: A/G RATIO 0.9 (1-2); ALBUMIN 2.9 g/dl (3.4-5.0); ANION GAP 17.6 (5-15); BILIRUBIN TOTAL 0.2 mg/dL (0.2-1.0); BUN/CREATININE RATIO 27.5 (14-18); CALCIUM 8.3 mg/dL (8.5-10.1); CREATININE 0.4 mg/dL (0.55-1.02); EST CRCL DRUG DOSING (CG) 111.52 mL/min; POTASSIUM,K 3.6 mEq/L (3.5-5.1); PROTEIN TOTAL,TP 6.2 g/dl (6.4-8.2)
[2024-03-03] MEDS: Ketorolac 15 MG/ML SDV IVPUSH ONE ×3 (20:05→22:16)
[2024-03-03] MEDS: Sodium Chloride 0.9% 1,000 ML IV ONE (20:05)
[2024-03-03] MEDS: Acetaminophen 325 MG Tab PO ONE (21:33)
== END 2024-03-03 22:58 | disposition home or self-care (01) ==
LOC: JD.ED 18:18
DX: M79.661 Pain in right lower leg (principal); Z90.49 Acquired absence of other specified parts of digestive tract; Z91.048 Other nonmedicinal substance allergy status
CPT/HCPCS: 36415; 80053; 85025; 96361; 96374; 96376; 99284; A9270; J1885; J7030

== ENCOUNTER 2024-03-06 12:53 | Emergency (ER) | payer MEDICARE, MEDICAID ==
[2024-03-06 13:42] LABS: BASOPHILS PERCENT AUTO 0.7 % (0.0-1.0); EOSINOPHILS PERCENT AUTO 0.7 % (0.0-6.0); HEMATOCRIT 33.6 % (37.0-47.0); HEMOGLOBIN 11.5 gm/dl (12.0-16.0); IMMATURE GRAN ABSOLUTE AUTO 0.01 K/mm3 (0.00-0.05); IMMATURE GRAN PERCENT AUTO 0.2 % (0.0-0.4); LYMPHOCYTES ABSOLUTE AUTO 1.8 K/mm3 (1.0-4.8); LYMPHOCYTES PERCENT AUTO 40.9 % (24.0-44.0); MEAN CORPUSCULAR HEMOGLOBIN 30.7 pg (28.0-32.0); MEAN CORPUSCULAR HGB CONC 34.2 g/dl (32.0-36.0); MEAN CORPUSCULAR VOLUME 89.8 fl (83.0-99.0); MEAN PLATELET VOLUME 8.4 fl (9.4-12.3); MONOCYTES ABSOLUTE AUTO 0.2 K/mm3 (0.0-0.8); MONOCYTES PERCENT AUTO 5.1 % (0.0-8.0); NEUTROPHILS ABSOLUTE AUTO 2.3 K/mm3 (1.8-7.7); NEUTROPHILS PERCENT AUTO 52.4 % (41.0-71.0); PLATELET COUNT,PLT 303 K/mm3 (150-400); RED BLOOD CELL COUNT 3.74 M/mm3 (4.10-5.30); WHITE BLOOD CELL COUNT,WBC 4.35 K/mm3 (3.9-11.3)
[2024-03-06] MEDS ORDERED: Sodium Chloride 0.9% 1,000 ML IV SCH (13:45)
[2024-03-06] MEDS: fentaNYL 100 MCG/2 ML SDV IVPUSH ONE (14:05)
[2024-03-06] MEDS ORDERED: Naloxone 0.4 MG/ML SDV IVPUSH PRN (14:16)
[2024-03-06 14:17] LABS: A/G RATIO 0.9 (1-2); ALBUMIN 3.1 g/dl (3.4-5.0); ANION GAP 17.6 (5-15); BILIRUBIN TOTAL 0.4 mg/dL (0.2-1.0); BUN/CREATININE RATIO 11.7 (14-18); C-REACTIVE PROTEIN 0.16 mg/dL (<0.30); CALCIUM 8.4 mg/dL (8.5-10.1); CREATININE 0.6 mg/dL (0.55-1.02); EST CRCL DRUG DOSING (CG) 74.34 mL/min; ETHANOL BLOOD MEDICAL 0.36 gm% (0.00); MAGNESIUM 1.6 mg/dL (1.8-2.4); POTASSIUM,K 3.6 mEq/L (3.5-5.1); PROTEIN TOTAL,TP 6.5 g/dl (6.4-8.2)
[2024-03-06 14:34] LABS: LACTIC ACID 2.8 mmol/L (0.4-2.0)
[2024-03-06] MEDS: Morphine 2 MG/ML SYRINGE IM ONE (14:37)
[2024-03-06] MEDS: Magnesium Oxide 400 MG Tab PO ONE (16:00)
[2024-03-06 19:38] VITALS: BP 113/82; PULSE 92
== END 2024-03-06 16:15 | disposition home or self-care (01) ==
LOC: JD.ED 12:53
DX: G62.9 Polyneuropathy, unspecified (principal); R53.1 Weakness; D64.9 Anemia, unspecified; L98.411 Non-pressure chronic ulcer of buttock limited to breakdown of skin; F10.920 Alcohol use, unspecified with intoxication, uncomplicated; E86.0 Dehydration; E83.42 Hypomagnesemia; E46 Unspecified protein-calorie malnutrition; E03.9 Hypothyroidism, unspecified; Z88.8 Allergy status to other drugs, medicaments and biological substances; Z91.048 Other nonmedicinal substance allergy status; Z90.49 Acquired absence of other specified parts of digestive tract
CPT/HCPCS: 36415; 80053; 80307; 83605; 83735; 85025; 86140; 96372; 99284; J2270

== ENCOUNTER 2024-03-07 08:22 | Emergency (ER) | payer MEDICARE, MEDICAID ==
[2024-03-07] MEDS ORDERED: Sodium Chloride 0.9% 10 ML Syringe FLUSH PRN (08:39)
[2024-03-07 09:24] LABS: BASOPHILS PERCENT AUTO 0.6 % (0.0-1.0); EOSINOPHILS PERCENT AUTO 0.8 % (0.0-6.0); HEMATOCRIT 37.2 % (37.0-47.0); HEMOGLOBIN 12.6 gm/dl (12.0-16.0); IMMATURE GRAN ABSOLUTE AUTO 0.01 K/mm3 (0.00-0.05); IMMATURE GRAN PERCENT AUTO 0.2 % (0.0-0.4); LYMPHOCYTES ABSOLUTE AUTO 1.7 K/mm3 (1.0-4.8); LYMPHOCYTES PERCENT AUTO 31.6 % (24.0-44.0); MEAN CORPUSCULAR HGB CONC 33.9 g/dl (32.0-36.0); MEAN CORPUSCULAR VOLUME 91.6 fl (83.0-99.0); MEAN PLATELET VOLUME 8.9 fl (9.4-12.3); MONOCYTES ABSOLUTE AUTO 0.3 K/mm3 (0.0-0.8); MONOCYTES PERCENT AUTO 4.9 % (0.0-8.0); NEUTROPHILS ABSOLUTE AUTO 3.3 K/mm3 (1.8-7.7); NEUTROPHILS PERCENT AUTO 61.9 % (41.0-71.0); PLATELET COUNT,PLT 290 K/mm3 (150-400); RED BLOOD CELL COUNT 4.06 M/mm3 (4.10-5.30); WHITE BLOOD CELL COUNT,WBC 5.26 K/mm3 (3.9-11.3)
[2024-03-07] MEDS: Sodium Chloride 0.9% 1,000 ML IV SCH (09:35)
[2024-03-07 09:53] LABS: ALBUMIN 3.3 g/dl (3.4-5.0); ANION GAP 18.4 (5-15); BILIRUBIN TOTAL 0.4 mg/dL (0.2-1.0); CALCIUM 8.5 mg/dL (8.5-10.1); CREATININE 0.5 mg/dL (0.55-1.02); EST CRCL DRUG DOSING (CG) 104.69 mL/min; ETHANOL BLOOD MEDICAL 0.38 gm% (0.00); MAGNESIUM 1.7 mg/dL (1.8-2.4); POTASSIUM,K 3.4 mEq/L (3.5-5.1); PROTEIN TOTAL,TP 6.7 g/dl (6.4-8.2)
[2024-03-07 13:36] LABS: ANION GAP 18.4 (5-15); BUN/CREATININE RATIO 13.3 (14-18); CALCIUM 7.7 mg/dL (8.5-10.1); CREATININE 0.6 mg/dL (0.55-1.02); EST CRCL DRUG DOSING (CG) 87.24 mL/min; POTASSIUM,K 3.4 mEq/L (3.5-5.1)
[2024-03-07] MEDS: Ondansetron 4 MG/2 ML SDV IVPUSH ONE (14:45)
[2024-03-07 19:39] VITALS: BP 115/83; PULSE 76
[2024-03-09] MEDS ORDERED: Gabapentin 300 MG Cap PO ONE (00:30)
== END 2024-03-07 15:47 | disposition home or self-care (01) ==
LOC: JD.ED 08:22
DX: T39.391A Poisoning by other nonsteroidal anti-inflammatory drugs [NSAID], accidental (unintentional), initial encounter (principal); G89.29 Other chronic pain; Z91.048 Other nonmedicinal substance allergy status
CPT/HCPCS: 36415; 80048; 80053; 80143; 80179; 80307; 83735; 85025; 93005; 96361; 96374; 99284; J2405; J7030

== ENCOUNTER 2024-03-08 16:28 | Emergency (ER) | payer MEDICARE, MEDICAID ==
[2024-03-08 19:21] VITALS: PULSE 107
[2024-03-08] MEDS ORDERED: Gabapentin 300 MG Cap PO ONE ×2 (23:03→23:45)
[2024-03-08] MEDS: Dextrose 5%-Lactated Ringers 1,000 ML IV SCH (23:33)
[2024-03-08] MEDS: Metoclopramide 10 MG/2 ML SDV IVPUSH ONE (23:34)
[2024-03-08] MEDS: HYDROmorphone 0.5 MG/0.5 ML Syringe IVPUSH ONE (23:35)
[2024-03-08 23:36] LABS: BASOPHILS PERCENT AUTO 0.3 % (0.0-1.0); EOSINOPHILS PERCENT AUTO 0.2 % (0.0-6.0); HEMATOCRIT 34.2 % (37.0-47.0); HEMOGLOBIN 11.3 gm/dl (12.0-16.0); IMMATURE GRAN ABSOLUTE AUTO 0.02 K/mm3 (0.00-0.05); IMMATURE GRAN PERCENT AUTO 0.3 % (0.0-0.4); LYMPHOCYTES ABSOLUTE AUTO 1.4 K/mm3 (1.0-4.8); LYMPHOCYTES PERCENT AUTO 23.1 % (24.0-44.0); MEAN CORPUSCULAR HEMOGLOBIN 30.6 pg (28.0-32.0); MEAN CORPUSCULAR VOLUME 92.7 fl (83.0-99.0); MEAN PLATELET VOLUME 9.3 fl (9.4-12.3); MONOCYTES ABSOLUTE AUTO 0.3 K/mm3 (0.0-0.8); MONOCYTES PERCENT AUTO 5.4 % (0.0-8.0); NEUTROPHILS ABSOLUTE AUTO 4.4 K/mm3 (1.8-7.7); NEUTROPHILS PERCENT AUTO 70.7 % (41.0-71.0); PLATELET COUNT,PLT 208 K/mm3 (150-400); RED BLOOD CELL COUNT 3.69 M/mm3 (4.10-5.30); WHITE BLOOD CELL COUNT,WBC 6.16 K/mm3 (3.9-11.3)
[2024-03-08] MEDS: Thiamine 100 MG in Sodium Chloride 0.9% 100 ML IV ONE (23:38)
[2024-03-09 00:02] LABS: INR 0.93; PROTHROMBIN TIME 9.9 SECONDS (9.7-12.0); PTT,PARTIAL THROMBOPLSTIN TIME 26.5 SECONDS (21.7-31.4)
[2024-03-09 00:18] LABS: A/G RATIO 0.9 (1-2); ALBUMIN 2.9 g/dl (3.4-5.0); ANION GAP 25.3 (5-15); BILIRUBIN TOTAL 0.4 mg/dL (0.2-1.0); BUN/CREATININE RATIO 32.5 (14-18); C-REACTIVE PROTEIN 3.41 mg/dL (<0.30); CALCIUM 8.2 mg/dL (8.5-10.1); CREATININE 0.4 mg/dL (0.55-1.02); EST CRCL DRUG DOSING (CG) 108.1 mL/min; ETHANOL BLOOD MEDICAL 0.14 gm% (0.00); MAGNESIUM 1.3 mg/dL (1.8-2.4); POTASSIUM,K 4.3 mEq/L (3.5-5.1); PROTEIN TOTAL,TP 6.3 g/dl (6.4-8.2)
[2024-03-09] MEDS ORDERED: Gabapentin 300 MG Cap PO ONE (01:00)
[2024-03-09] MEDS: Cyclobenzaprine 10 MG Tab PO ONE (01:32)
[2024-03-09] MEDS: LORazepam 2 MG/ML SDV IVPUSH ONE ×2 (01:36→04:02)
[2024-03-09] MEDS: Gabapentin 300 MG Cap PO SCH (01:39)
[2024-03-09] MEDS: Gabapentin 300 MG Cap PO ONE (01:39)
[2024-03-09] MEDS: Magnesium Sulfate/Water Premix 4 GM in Premix Bag 1 BAG IV ONE (01:50)
[2024-03-09] MEDS: HYDROmorphone 0.5 MG/0.5 ML Syringe IVPUSH ONE (03:39)
[2024-03-09] MEDS: Lactated Ringers 1,000 ML IV ONE (04:39)
[2024-03-09] MEDS: Dextrose 5%-0.9% NaCl 1,000 ML IV SCH (06:29)
[2024-03-09 11:52] VITALS: BP 133/77
== END 2024-03-09 11:48 | disposition home or self-care (01) ==
LOC: JD.ED 16:28
DX: E86.0 Dehydration (principal); E83.42 Hypomagnesemia; E87.21 Acute metabolic acidosis; E46 Unspecified protein-calorie malnutrition; R25.2 Cramp and spasm; F17.210 Nicotine dependence, cigarettes, uncomplicated; Z86.16 Personal history of COVID-19; Z79.899 Other long term (current) drug therapy
CPT/HCPCS: 36415; 51702; 80053; 80307; 82010; 83605; 83690; 83735; 83880; 83930; 85025; 85610; 85730; 86140; 93005; 96361; 96365; 96366; 96368; 96375; 96376; 99284; A9270; C1758; J1171; J2060; J2765; J3411; J3475; J3490; J7042; J7120; J7121; 93010; 99285

== ENCOUNTER 2024-03-11 09:32 | Inpatient (IN) | payer MEDICARE, MEDICAID ==
[2024-03-11] MEDS: Sodium Chloride 0.9% 10 ML Syringe FLUSH PRN (10:30)
[2024-03-11] MEDS: Sodium Chloride 0.9% 1,000 ML IV ONE (10:35)
[2024-03-11 10:38] LABS: EOSINOPHILS ABSOLUTE AUTO 0.1 K/mm3 (0.0-0.4); EOSINOPHILS PERCENT AUTO 1.5 % (0.0-6.0); HEMATOCRIT 34.4 % (37.0-47.0); HEMOGLOBIN 11.8 gm/dl (12.0-16.0); IMMATURE GRAN ABSOLUTE AUTO 0.01 K/mm3 (0.00-0.05); IMMATURE GRAN PERCENT AUTO 0.2 % (0.0-0.4); LYMPHOCYTES PERCENT AUTO 24.7 % (24.0-44.0); MEAN CORPUSCULAR HEMOGLOBIN 30.9 pg (28.0-32.0); MEAN CORPUSCULAR HGB CONC 34.3 g/dl (32.0-36.0); MEAN CORPUSCULAR VOLUME 90.1 fl (83.0-99.0); MEAN PLATELET VOLUME 10.2 fl (9.4-12.3); MONOCYTES ABSOLUTE AUTO 0.3 K/mm3 (0.0-0.8); MONOCYTES PERCENT AUTO 8.4 % (0.0-8.0); NEUTROPHILS ABSOLUTE AUTO 2.6 K/mm3 (1.8-7.7); NEUTROPHILS PERCENT AUTO 65.2 % (41.0-71.0); PLATELET COUNT,PLT 188 K/mm3 (150-400); RED BLOOD CELL COUNT 3.82 M/mm3 (4.10-5.30); WHITE BLOOD CELL COUNT,WBC 4.05 K/mm3 (3.9-11.3)
[2024-03-11] MEDS: Gabapentin 300 MG Cap PO ONE (10:42)
[2024-03-11 10:58] LABS: A/G RATIO 0.9 (1-2); ALANINE AMINOTRANSFERASE,ALT 25 U/L (14-59); ALBUMIN 2.9 g/dl (3.4-5.0); ALKALINE PHOSPHATASE 49 U/L (46-116); ANION GAP 10.8 (5-15); ASPARTATE AMNIOTRANSFERASE,AST 40 U/L (15-37); BILIRUBIN TOTAL 0.6 mg/dL (0.2-1.0); BLOOD UREA NITROGEN,BUN 1 mg/dL (7-18); BUN/CREATININE RATIO 2.5 (14-18); CALCIUM 8.2 mg/dL (8.5-10.1); CARBON DIOXIDE,CO2 31 mEq/L (21-32); CHLORIDE,CL 98 mEq/L (98-107); CREATINE KINASE,CK 62 U/L (26-192); CREATININE 0.4 mg/dL (0.55-1.02); ESTIMATED GFR 117 mL/min (>60); GLUCOSE RANDOM 86 mg/dL (70-99); MAGNESIUM 1.3 mg/dL (1.8-2.4); POTASSIUM,K 2.8 mEq/L (3.5-5.1); PROTEIN TOTAL,TP 6.1 g/dl (6.4-8.2); SODIUM,NA 137 mEq/L (136-145)
[2024-03-11] MEDS: Ondansetron 4 MG/2 ML SDV IVPUSH ONE (11:14)
[2024-03-11] MEDS ORDERED: Magnesium Sulfate (4.06 MEQ/ML) 5 GM/10 ML SDV IV ONE (11:20)
[2024-03-11] MEDS: Potassium Chloride 100 ML ONE (11:48)
[2024-03-11] MEDS: Potassium Chloride 10 MEQ in Premix Bag 1 BAG IV SCH (11:48)
[2024-03-11] MEDS: Magnesium Sulfate/Water Premix 2 GM in Premix Bag 1 BAG IV SCH (11:49)
[2024-03-11] MEDS: Potassium Chloride 20 MEQ Tab.ER PO ONE (11:51)
[2024-03-11 12:17] LABS: APPEARANCE,URINE SLT CLOUDY (Clear); BILIRUBIN,URINE NEGATIVE (Negative); COLOR,URINE YELLOW (Yellow); GLUCOSE,URINE NEGATIVE (Negative); KETONES,URINE NEGATIVE (Negative); LEUKOCYTE ESTERASE,URINE 3+ (Negative); NITRITE,URINE POSITIVE (Negative); OCCULT BLOOD,URINE TRACE-INTACT (Negative); PROTEIN,URINE 1+ (Negative); UROBILINOGEN,URINE 0.2 (0.2-1.0)
[2024-03-11 12:27] LABS: BACTERIA,URINE MANY /hpf (FEW); MUCUS,URINE NOT SEEN /hpf (FEW); SQUAMOUS EPITHELIAL CELLS,UR 20-30 /hpf (0-5); WBC CLUMPS,URINE FEW /hpf (NOT SEEN); WBC,URINE 30-40 /hpf (0-5)
[2024-03-11] MEDS: cefTRIAXone 1 GM in Sodium Chloride 0.9% 100 ML IV SCH (14:33)
[2024-03-11 15:58] LABS: TSH 23.35 uIU/mL (0.358-3.74)
[2024-03-11 16:15] LABS: T4 FREE 0.72 ng/dL (0.76-1.46)
[2024-03-11] MEDS: Baclofen 10 MG Tab PO SCH (18:05)
[2024-03-11] MEDS: Ondansetron 4 MG/2 ML SDV IV PRN (18:05)
[2024-03-11] MEDS: Acetaminophen 325 MG Tab PO PRN (18:10)
[2024-03-11] MEDS: Gabapentin 300 MG Cap PO SCH (21:18)
[2024-03-11] MEDS: Thiamine 200 MG/2 ML MDV IVPUSH SCH (21:19)
[2024-03-12] MEDS: Ondansetron 4 MG Tab.DIS PO PRN (07:49)
[2024-03-12 08:09] LABS: BASOPHILS PERCENT AUTO 0.2 % (0.0-1.0); EOSINOPHILS ABSOLUTE AUTO 0.1 K/mm3 (0.0-0.4); EOSINOPHILS PERCENT AUTO 1.2 % (0.0-6.0); HEMATOCRIT 35.6 % (37.0-47.0); HEMOGLOBIN 11.9 gm/dl (12.0-16.0); IMMATURE GRAN ABSOLUTE AUTO 0.01 K/mm3 (0.00-0.05); IMMATURE GRAN PERCENT AUTO 0.2 % (0.0-0.4); LYMPHOCYTES ABSOLUTE AUTO 1.1 K/mm3 (1.0-4.8); LYMPHOCYTES PERCENT AUTO 27.5 % (24.0-44.0); MEAN CORPUSCULAR HEMOGLOBIN 31.2 pg (28.0-32.0); MEAN CORPUSCULAR HGB CONC 33.4 g/dl (32.0-36.0); MEAN CORPUSCULAR VOLUME 93.4 fl (83.0-99.0); MONOCYTES ABSOLUTE AUTO 0.3 K/mm3 (0.0-0.8); MONOCYTES PERCENT AUTO 7.4 % (0.0-8.0); NEUTROPHILS ABSOLUTE AUTO 2.6 K/mm3 (1.8-7.7); NEUTROPHILS PERCENT AUTO 63.5 % (41.0-71.0); PLATELET COUNT,PLT 183 K/mm3 (150-400); RED BLOOD CELL COUNT 3.81 M/mm3 (4.10-5.30); WHITE BLOOD CELL COUNT,WBC 4.03 K/mm3 (3.9-11.3)
[2024-03-12 08:35] LABS: A/G RATIO 0.8 (1-2); ALBUMIN 2.6 g/dl (3.4-5.0); ANION GAP 11.9 (5-15); BILIRUBIN TOTAL 0.3 mg/dL (0.2-1.0); CALCIUM 8.4 mg/dL (8.5-10.1); CREATININE 0.5 mg/dL (0.55-1.02); EST CRCL DRUG DOSING (CG) 98.59 mL/min; POTASSIUM,K 2.9 mEq/L (3.5-5.1); PROTEIN TOTAL,TP 5.9 g/dl (6.4-8.2)
[2024-03-12] MEDS: Enoxaparin 40 MG/0.4 ML Syringe SUBCUT SCH (09:33)
[2024-03-12] MEDS: Loperamide 2 MG Cap PO ONE (13:17)
[2024-03-12] MEDS: Potassium Chloride 20 MEQ Tab.ER PO ONE (14:28)
[2024-03-12] MEDS: Magnesium Sulfate/Water Premix 2 GM in Premix Bag 1 BAG IV ONE (17:53)
[2024-03-12] MEDS: Sodium Chloride 0.9% 1,000 ML IV SCH (17:54)
[2024-03-13 06:31] LABS: HEMATOCRIT 34.6 % (37.0-47.0); HEMOGLOBIN 11.3 gm/dl (12.0-16.0); MEAN CORPUSCULAR HEMOGLOBIN 30.7 pg (28.0-32.0); MEAN CORPUSCULAR HGB CONC 32.7 g/dl (32.0-36.0); MEAN PLATELET VOLUME 9.6 fl (9.4-12.3); PLATELET COUNT,PLT 156 K/mm3 (150-400); RED BLOOD CELL COUNT 3.68 M/mm3 (4.10-5.30); WHITE BLOOD CELL COUNT,WBC 3.76 K/mm3 (3.9-11.3)
[2024-03-13 07:03] LABS: A/G RATIO 0.8 (1-2); ALBUMIN 2.5 g/dl (3.4-5.0); ANION GAP 9.8 (5-15); BILIRUBIN TOTAL 0.2 mg/dL (0.2-1.0); CALCIUM 8.6 mg/dL (8.5-10.1); CREATININE 0.5 mg/dL (0.55-1.02); EST CRCL DRUG DOSING (CG) 100.32 mL/min; POTASSIUM,K 3.8 mEq/L (3.5-5.1); PROTEIN TOTAL,TP 5.7 g/dl (6.4-8.2)
[2024-03-13] MEDS: Fluticasone NASAL Spray 16 GM Bottle NASBOTH SCH (08:28)
[2024-03-13] MEDS: Levothyroxine 75 MCG Tab PO SCH (08:42)
[2024-03-13 13:33] VITALS: BP 119/75; PULSE 105
[2024-03-17 17:43] LABS: VITAMIN B1, WHOLE BLOOD 304 nmol/L (70-180)
== END 2024-03-13 15:49 | disposition home or self-care (01) | DRG 74 ==
LOC: JD.ED 09:32 → JD.MS 13:50 → EEVIPCON 13:50
PROVIDERS: ADMIT Family Medicine; ATTEND Internal Medicine
DX: G62.9 Polyneuropathy, unspecified (principal); E46 Unspecified protein-calorie malnutrition; N39.0 Urinary tract infection, site not specified; R26.2 Difficulty in walking, not elsewhere classified; R26.89 Other abnormalities of gait and mobility; R53.81 Other malaise; E87.6 Hypokalemia; E83.42 Hypomagnesemia; Z66 Do not resuscitate; L89.159 Pressure ulcer of sacral region, unspecified stage; F41.9 Anxiety disorder, unspecified; D50.9 Iron deficiency anemia, unspecified; H54.7 Unspecified visual loss; F10.10 Alcohol abuse, uncomplicated; F17.210 Nicotine dependence, cigarettes, uncomplicated; E03.9 Hypothyroidism, unspecified; Z99.3 Dependence on wheelchair; Z88.8 Allergy status to other drugs, medicaments and biological substances; Z98.51 Tubal ligation status; Z91.048 Other nonmedicinal substance allergy status; Z90.89 Acquired absence of other organs; Z91.040 Latex allergy status; Z86.711 Personal history of pulmonary embolism; Z98.890 Other specified postprocedural states; Z79.890 Hormone replacement therapy; Z86.16 Personal history of COVID-19; Z90.49 Acquired absence of other specified parts of digestive tract
CPT/HCPCS: 36415; 80053; 81001; 82550; 82607; 83735; 84439; 84443; 85025; 85652; 87086; 93005; 96361; 96365; 96366; 96368; 96375; 99285; A9270 ×2; J2405; J3475; J3480 ×2; J3490; J7030; 82306; 84425; 85027; 87088; 87186; 93010; 94761; 99284; J0696; J1650; J3411

== ENCOUNTER 2024-05-19 06:58 | Emergency (ER) | payer MEDICARE, MEDICAID ==
[2024-05-19] MEDS ORDERED: Sodium Chloride 0.9% 10 ML Syringe FLUSH PRN (07:33)
[2024-05-19 08:29] LABS: BASOPHILS PERCENT AUTO 0.2 % (0.0-1.0); EOSINOPHILS PERCENT AUTO 0.2 % (0.0-6.0); HEMATOCRIT 34.5 % (37.0-47.0); HEMOGLOBIN 11.8 gm/dl (12.0-16.0); IMMATURE GRAN ABSOLUTE AUTO 0.02 K/mm3 (0.00-0.05); IMMATURE GRAN PERCENT AUTO 0.3 % (0.0-0.4); LYMPHOCYTES ABSOLUTE AUTO 0.8 K/mm3 (1.0-4.8); LYMPHOCYTES PERCENT AUTO 12.5 % (24.0-44.0); MEAN CORPUSCULAR HEMOGLOBIN 34.4 pg (28.0-32.0); MEAN CORPUSCULAR HGB CONC 34.2 g/dl (32.0-36.0); MEAN PLATELET VOLUME 9.1 fl (9.4-12.3); MONOCYTES ABSOLUTE AUTO 0.5 K/mm3 (0.0-0.8); MONOCYTES PERCENT AUTO 7.3 % (0.0-8.0); NEUTROPHILS ABSOLUTE AUTO 5.1 K/mm3 (1.8-7.7); NEUTROPHILS PERCENT AUTO 79.5 % (41.0-71.0); PLATELET COUNT,PLT 178 K/mm3 (150-400); RED BLOOD CELL COUNT 3.43 M/mm3 (4.10-5.30)
[2024-05-19 08:31] LABS: MEAN CORPUSCULAR VOLUME 100.6 fl (83.0-99.0)
[2024-05-19 08:48] LABS: APPEARANCE,URINE CLOUDY (Clear); BILIRUBIN,URINE NEGATIVE (Negative); COLOR,URINE YELLOW (Yellow); GLUCOSE,URINE NEGATIVE (Negative); KETONES,URINE 4+ (Negative); LEUKOCYTE ESTERASE,URINE TRACE (Negative); NITRITE,URINE POSITIVE (Negative); OCCULT BLOOD,URINE NEGATIVE (Negative); PH,URINE 8.5 (5.0-8.0); PROTEIN,URINE 3+ (Negative); UROBILINOGEN,URINE 0.2 (0.2-1.0)
[2024-05-19 08:50] LABS: A/G RATIO 0.9 (1-2); ALBUMIN 3.8 g/dl (3.4-5.0); ANION GAP 23.2 (5-15); BILIRUBIN TOTAL 1.2 mg/dL (0.2-1.0); CALCIUM 9.8 mg/dL (8.5-10.1); CREATININE 0.5 mg/dL (0.55-1.02); EST CRCL DRUG DOSING (CG) 95.59 mL/min; MAGNESIUM 1.7 mg/dL (1.8-2.4); POTASSIUM,K 3.2 mEq/L (3.5-5.1); PROTEIN TOTAL,TP 8.1 g/dl (6.4-8.2)
[2024-05-19 09:10] LABS: RBC,URINE 0-5 /hpf (0-5)
[2024-05-19 09:11] LABS: BACTERIA,URINE MODERATE /hpf (FEW); EPITHELIAL CELLS,URINE 0-5 /hpf (0-5); MUCUS,URINE FEW /hpf (FEW)
[2024-05-19] MEDS: Levofloxacin 750 MG Tab PO SCH (09:48)
[2024-05-19 10:07] VITALS: BP 129/89; PULSE 88
== END 2024-05-19 10:00 | disposition home or self-care (01) ==
LOC: JD.ED 06:58
DX: F42.4 Excoriation (skin-picking) disorder (principal); R05.9 Cough, unspecified; E87.1 Hypo-osmolality and hyponatremia; R82.90 Unspecified abnormal findings in urine; E03.9 Hypothyroidism, unspecified; Z86.16 Personal history of COVID-19; Z90.49 Acquired absence of other specified parts of digestive tract; Z91.048 Other nonmedicinal substance allergy status; Z79.890 Hormone replacement therapy; Z79.899 Other long term (current) drug therapy
CPT/HCPCS: 36415; 71045; 80053; 81001; 83735; 85025; 87086; 87428; 99284; A9270; C1758

== ENCOUNTER 2024-06-24 01:06 | Inpatient (IN) | payer MEDICARE, MEDICAID ==
[2024-06-24] MEDS: Sodium Chloride 0.9% 1,000 ML IV ONE ×2 (02:02→06:49)
[2024-06-24 02:04] LABS: BASOPHILS PERCENT AUTO 0.3 % (0.0-1.0); HEMATOCRIT 31.5 % (37.0-47.0); HEMOGLOBIN 10.7 gm/dl (12.0-16.0); IMMATURE GRAN ABSOLUTE AUTO 0.01 K/mm3 (0.00-0.05); IMMATURE GRAN PERCENT AUTO 0.3 % (0.0-0.4); LYMPHOCYTES ABSOLUTE AUTO 1.9 K/mm3 (1.0-4.8); MEAN CORPUSCULAR HEMOGLOBIN 35.1 pg (28.0-32.0); MEAN CORPUSCULAR VOLUME 103.3 fl (83.0-99.0); MEAN PLATELET VOLUME 8.3 fl (9.4-12.3); MONOCYTES ABSOLUTE AUTO 0.3 K/mm3 (0.0-0.8); MONOCYTES PERCENT AUTO 7.5 % (0.0-8.0); NEUTROPHILS ABSOLUTE AUTO 1.6 K/mm3 (1.8-7.7); NEUTROPHILS PERCENT AUTO 40.9 % (41.0-71.0); PLATELET COUNT,PLT 259 K/mm3 (150-400); RED BLOOD CELL COUNT 3.05 M/mm3 (4.10-5.30); WHITE BLOOD CELL COUNT,WBC 3.86 K/mm3 (3.9-11.3)
[2024-06-24 02:36] LABS: A/G RATIO 0.8 (1-2); ALBUMIN 2.8 g/dl (3.4-5.0); BUN/CREATININE RATIO 22.5 (14-18); CALCIUM 8.5 mg/dL (8.5-10.1); CREATININE 0.4 mg/dL (0.55-1.02); MAGNESIUM 1.7 mg/dL (1.8-2.4); PROTEIN TOTAL,TP 6.2 g/dl (6.4-8.2)
[2024-06-24 02:40] LABS: LACTIC ACID 3.4 mmol/L (0.4-2.0)
[2024-06-24 02:55] LABS: BILIRUBIN TOTAL 0.1 mg/dL (0.2-1.0)
[2024-06-24] MEDS: Silver Sulfadiazine 1% Crm 50 GM Tube TOP SCH (03:00)
[2024-06-24] MEDS: Gabapentin 300 MG Cap PO ONE (03:48)
[2024-06-24] MEDS: Sodium Chloride 0.9% 750 ML IV ONE (04:27)
[2024-06-24 04:35] LABS: APPEARANCE,URINE SLT CLOUDY (Clear); BILIRUBIN,URINE NEGATIVE (Negative); COLOR,URINE LIGHT YELLOW (Yellow); GLUCOSE,URINE NEGATIVE (Negative); KETONES,URINE NEGATIVE (Negative); LEUKOCYTE ESTERASE,URINE TRACE (Negative); NITRITE,URINE NEGATIVE (Negative); OCCULT BLOOD,URINE NEGATIVE (Negative); PROTEIN,URINE NEGATIVE (Negative); UROBILINOGEN,URINE 0.2 (0.2-1.0)
[2024-06-24 04:44] LABS: BACTERIA,URINE MANY /hpf (FEW); MUCUS,URINE NOT SEEN /hpf (FEW); RBC,URINE 0-5 /hpf (0-5); SQUAMOUS EPITHELIAL CELLS,UR 0-5 /hpf (0-5)
[2024-06-24] MEDS: Albumin 25% 12.5 GM in Premix Bag 1 BAG IV SCH ×2 (06:50→07:07)
[2024-06-24] MEDS: Cyclobenzaprine 10 MG Tab PO ONE ×2 (07:45→11:16)
[2024-06-24] MEDS: Gabapentin 300 MG Cap PO SCH (08:11)
[2024-06-24] MEDS: Albumin 25% 100 ML ONE (09:08)
[2024-06-24] MEDS: Sodium Chloride 0.9% 10 ML Syringe FLUSH PRN (09:09)
[2024-06-24 09:54] LABS: FOLIC ACID 2.7 ng/mL (8.6-58.9)
[2024-06-24] MEDS ORDERED: Acetaminophen 325 MG Tab PO PRN (10:39)
[2024-06-24] MEDS ORDERED: Thiamine 100 MG in Sodium Chloride 0.9% 100 ML IV ONE (10:42)
[2024-06-24] MEDS: Sodium Chloride 0.9% 1,000 ML IV SCH (10:48)
[2024-06-24] MEDS: Folic Acid 1 MG Tab PO SCH (11:15)
[2024-06-24] MEDS: Thiamine 200 MG/2 ML MDV IVPUSH ONE (11:15)
[2024-06-24] MEDS: Gabapentin 600 MG Tab PO SCH ×3 (11:17→16:21)
[2024-06-24] MEDS: VANCOmycin 125 MG Cap PO SCH (12:25)
[2024-06-24] MEDS: Acetaminophen/HYDROcodone 325-5 MG Tab PO PRN (12:25)
[2024-06-24] MEDS ORDERED: hydrOXYzine HCl 25 MG Tab PO PRN (15:55)
[2024-06-24] MEDS: Baclofen 10 MG Tab PO SCH (16:21)
[2024-06-24] MEDS: Ondansetron 4 MG/2 ML SDV IV PRN (16:21)
[2024-06-24] MEDS: Thiamine 100 MG Tab PO SCH (19:55)
[2024-06-25 06:06] LABS: HEMATOCRIT 26.6 % (37.0-47.0); MEAN CORPUSCULAR HEMOGLOBIN 34.5 pg (28.0-32.0); MEAN CORPUSCULAR HGB CONC 33.1 g/dl (32.0-36.0); MEAN CORPUSCULAR VOLUME 104.3 fl (83.0-99.0); MEAN PLATELET VOLUME 8.4 fl (9.4-12.3); PLATELET COUNT,PLT 198 K/mm3 (150-400); RED BLOOD CELL COUNT 2.55 M/mm3 (4.10-5.30)
[2024-06-25 06:07] LABS: HEMOGLOBIN 8.8 gm/dl (12.0-16.0)
[2024-06-25 06:31] LABS: ALBUMIN 2.5 g/dl (3.4-5.0); ANION GAP 10.8 (5-15); BILIRUBIN TOTAL 0.5 mg/dL (0.2-1.0); BUN/CREATININE RATIO 6.7 (14-18); CALCIUM 7.8 mg/dL (8.5-10.1); CREATININE 0.3 mg/dL (0.55-1.02); EST CRCL DRUG DOSING (CG) 174.94 mL/min; MAGNESIUM 1.5 mg/dL (1.8-2.4); POTASSIUM,K 3.8 mEq/L (3.5-5.1); PROTEIN TOTAL,TP 5.1 g/dl (6.4-8.2); TSH 10.767 uIU/mL (0.358-3.74)
[2024-06-25] MEDS: Levothyroxine 75 MCG Tab PO SCH (06:58)
[2024-06-25] MEDS: Enoxaparin 40 MG/0.4 ML Syringe SUBCUT SCH (08:19)
[2024-06-25] MEDS: Prenatal Multivitamin with Calcium/Folic Acid/Iron Tab PO SCH (08:19)
[2024-06-26 05:42] LABS: HEMATOCRIT 28.2 % (37.0-47.0); HEMOGLOBIN 9.5 gm/dl (12.0-16.0); MEAN CORPUSCULAR HEMOGLOBIN 34.9 pg (28.0-32.0); MEAN CORPUSCULAR HGB CONC 33.7 g/dl (32.0-36.0); MEAN CORPUSCULAR VOLUME 103.7 fl (83.0-99.0); MEAN PLATELET VOLUME 8.6 fl (9.4-12.3); PLATELET COUNT,PLT 194 K/mm3 (150-400); RED BLOOD CELL COUNT 2.72 M/mm3 (4.10-5.30)
[2024-06-26] MEDS: Ondansetron 4 MG Tab.DIS PO PRN (06:17)
[2024-06-26 06:26] LABS: A/G RATIO 0.8 (1-2); ALBUMIN 2.6 g/dl (3.4-5.0); ANION GAP 11.7 (5-15); BILIRUBIN TOTAL 0.4 mg/dL (0.2-1.0); CALCIUM 8.1 mg/dL (8.5-10.1); CREATININE 0.4 mg/dL (0.55-1.02); EST CRCL DRUG DOSING (CG) 130.63 mL/min; POTASSIUM,K 3.7 mEq/L (3.5-5.1); PROTEIN TOTAL,TP 5.8 g/dl (6.4-8.2)
[2024-06-26 13:29] VITALS: BP 123/76; PULSE 122
== END 2024-06-26 14:00 | disposition home or self-care (01) | DRG 641 ==
LOC: JD.ED 01:06 → JD.MS 10:03
PROVIDERS: ADMIT Internal Medicine; ATTEND Internal Medicine
DX: E86.0 Dehydration (principal); N39.0 Urinary tract infection, site not specified; Z88.8 Allergy status to other drugs, medicaments and biological substances; Z91.048 Other nonmedicinal substance allergy status; Z79.890 Hormone replacement therapy; K52.9 Noninfective gastroenteritis and colitis, unspecified; E87.20 Acidosis, unspecified; G62.9 Polyneuropathy, unspecified; E03.9 Hypothyroidism, unspecified; F41.9 Anxiety disorder, unspecified; H54.7 Unspecified visual loss; D50.9 Iron deficiency anemia, unspecified; F17.210 Nicotine dependence, cigarettes, uncomplicated; R26.2 Difficulty in walking, not elsewhere classified; F10.10 Alcohol abuse, uncomplicated; E83.42 Hypomagnesemia; Z86.711 Personal history of pulmonary embolism; Z99.3 Dependence on wheelchair; Z87.81 Personal history of (healed) traumatic fracture; Z91.09 Other allergy status, other than to drugs and biological substances; Z79.899 Other long term (current) drug therapy; Z86.16 Personal history of COVID-19; Z90.49 Acquired absence of other specified parts of digestive tract; Z98.890 Other specified postprocedural states; Z98.51 Tubal ligation status
CPT/HCPCS: 36415; 74018; 80053; 81001; 82607; 82746; 83605 ×3; 83735; 85025; 87040 ×2; 87086; 87088; 87186; 87507; 96361; 96365; 96366; 96367; 99284; A9270 ×4; J3475; J7030 ×3; P9047 ×2; 84443; 85027; 97162-GP; J1650; J2405; J3411

== ENCOUNTER 2024-07-20 10:04 | Emergency (ER) | payer MEDICARE, MEDICAID ==
[2024-07-20 10:44] VITALS: BP 144/89; PULSE 106
== END 2024-07-20 10:40 | disposition home or self-care (01) ==
LOC: JD.ED 10:04
DX: R41.0 Disorientation, unspecified (principal); F17.210 Nicotine dependence, cigarettes, uncomplicated; Z91.048 Other nonmedicinal substance allergy status; Z91.018 Allergy to other foods; Z79.890 Hormone replacement therapy; Z79.899 Other long term (current) drug therapy; Z86.16 Personal history of COVID-19
CPT/HCPCS: 99284

== ENCOUNTER 2024-09-12 20:48 | Emergency (ER) | payer MEDICARE, MEDICAID ==
[2024-09-12 21:04] VITALS: BP 110/65; PULSE 106
[2024-09-12] MEDS: Ondansetron 4 MG Tab.DIS PO ONE (21:33)
[2024-09-12] MEDS: Gabapentin 600 MG Tab PO STA (21:33)
[2024-09-12] MEDS: Acetaminophen/HYDROcodone 325-5 MG Tab PO ONE (21:34)
[2024-09-12] MEDS: Sodium Chloride 0.9% 1,000 ML IV ONE (22:48)
[2024-09-12] MEDS: LORazepam 2 MG/ML SDV IM ONE (22:48)
[2024-09-12] MEDS: Ketorolac 30 MG/ML SDV IVPUSH ONE (22:49)
[2024-09-12 22:50] LABS: BASOPHILS PERCENT AUTO 0.3 % (0.0-1.0); EOSINOPHILS ABSOLUTE AUTO 0.1 K/mm3 (0.0-0.4); EOSINOPHILS PERCENT AUTO 1.6 % (0.0-6.0); HEMATOCRIT 36.6 % (37.0-47.0); IMMATURE GRAN ABSOLUTE AUTO 0.01 K/mm3 (0.00-0.05); IMMATURE GRAN PERCENT AUTO 0.3 % (0.0-0.4); LYMPHOCYTES ABSOLUTE AUTO 1.9 K/mm3 (1.0-4.8); LYMPHOCYTES PERCENT AUTO 58.3 % (24.0-44.0); MEAN CORPUSCULAR HEMOGLOBIN 35.5 pg (28.0-32.0); MEAN CORPUSCULAR HGB CONC 35.5 g/dl (32.0-36.0); MEAN PLATELET VOLUME 9.4 fl (9.4-12.3); MONOCYTES ABSOLUTE AUTO 0.3 K/mm3 (0.0-0.8); MONOCYTES PERCENT AUTO 8.7 % (0.0-8.0); NEUTROPHILS PERCENT AUTO 30.8 % (41.0-71.0); PLATELET COUNT,PLT 231 K/mm3 (150-400); RED BLOOD CELL COUNT 3.66 M/mm3 (4.10-5.30); WHITE BLOOD CELL COUNT,WBC 3.21 K/mm3 (3.9-11.3)
[2024-09-12 23:12] LABS: ALBUMIN 3.7 g/dl (3.4-5.0); ANION GAP 24.4 (5-15); BILIRUBIN TOTAL 0.4 mg/dL (0.2-1.0); BUN/CREATININE RATIO 27.5 (14-18); CALCIUM 9.1 mg/dL (8.5-10.1); CREATININE 0.4 mg/dL (0.55-1.02); EST CRCL DRUG DOSING (CG) 125.17 mL/min; ETHANOL BLOOD MEDICAL 0.21 gm% (0.00); MAGNESIUM 1.2 mg/dL (1.8-2.4); POTASSIUM,K 3.4 mEq/L (3.5-5.1); PROTEIN TOTAL,TP 7.4 g/dl (6.4-8.2)
[2024-09-13] MEDS: Magnesium Sulf/Wat 4 GM/50 mL 4 GM in Premix Bag 1 BAG IV ONE (00:58)
[2024-09-13] MEDS: Gabapentin 100 MG Cap PO ONE (00:59)
[2024-09-13] MEDS: Potassium Chloride 20 MEQ Tab.ER PO ONE (00:59)
== END 2024-09-13 02:40 | disposition home or self-care (01) ==
LOC: JD.ED 20:48
DX: G89.29 Other chronic pain (principal); M62.838 Other muscle spasm; E87.6 Hypokalemia; E83.42 Hypomagnesemia
CPT/HCPCS: 36415; 80053; 80307; 82550; 83690; 83735; 85025; 96365; 96366; 96372; 96375; 99284; 99284-25; A9270-GY; J1885; J2060; J3475; J7030